=== PATIENT | male | born 1960 | race Caucasian/White ===

== ENCOUNTER → 2016-08-26 | Outpatient (REF) | payer OTHER ==
[~2016-08-26] MED LIST: ASPI1TAB PO; ATOR40TA PO; HYDR25TAB PO; IBUP80TA PO; INSULANT SC; LISI-538 PO; METF1000 PO; SILV-4 TOP; TRAD5TAB PO; UNAS3INJ3 IV; ZOSY1SOL6 IV
[2016-08-26 19:14] LABS: ALBUMIN 3.2 GM/DL (3.2-5.2); ALBUMIN/GLOBULIN RATIO 0.86 (1.00-1.93); BILIRUBIN,TOTAL 0.3 MG/DL (0.2-1.0); CALCIUM LEVEL 9.2 MG/DL (8.5-10.1); CREATININE FOR GFR 1.55 MG/DL (0.70-1.30); GLOMERULAR FILTRATION RATE 49.4 (>56); TOTAL PROTEIN 6.9 GM/DL (6.4-8.2)
== END ==
LOC: M SFHCCAPE 07:04
PROVIDERS: ATTEND Physician Assistant
DX: E11.8 Type 2 diabetes mellitus with unspecified complications (principal)

== ENCOUNTER → 2016-10-30 | Outpatient (REF) | payer MEDICARE ==
[2016-10-30 19:29] LABS: PERCENT SATURATION 15.7 % (19.7-37.4)
== END ==
LOC: M LAB REF 17:03
PROVIDERS: ATTEND Internal Medicine Nephrology
DX: D50.9 Iron deficiency anemia, unspecified (principal)

== ENCOUNTER → 2016-10-31 | Outpatient (RCR) | payer MEDICARE ==
[~2016-10-31] MED LIST changes: +AMLO10TA2 PO; +DOXY-278 PO; +FERR325T3 PO; +HYDR10TAB PO; +IRON65TA PO; +K-TA1TAB PO; +LISI40TAB PO; +POTA10TA34 PO; +POTA1TAB14 PO; +SITA50TAB PO; +TORS20TA2 PO; +TORS5TAB2 PO; +VITA50003 PO
== END ==
LOC: M PT 10-21 11:50
PROVIDERS: ATTEND Physician Assistant
DX: Z51.89 Encounter for other specified aftercare (principal); M79.89 Other specified soft tissue disorders; M14.60 Charcot's joint, unspecified site
CPT/HCPCS: 97140; 97162; G8978; G8979

== ENCOUNTER → 2016-11-03 | Outpatient (REF) | payer MEDICARE, OTHER ==
[2016-11-03 19:48] LABS: ALBUMIN 3.3 GM/DL (3.2-5.2); ALBUMIN/GLOBULIN RATIO 0.85 (1.00-1.93); BILIRUBIN,TOTAL 0.2 MG/DL (0.2-1.0); CALCIUM LEVEL 9.3 MG/DL (8.5-10.1); CREATININE FOR GFR 2.02 MG/DL (0.70-1.30); GLOMERULAR FILTRATION RATE 36.3 (>56); TOTAL PROTEIN 7.2 GM/DL (6.4-8.2)
[2016-11-03 19:56] LABS: POTASSIUM SERUM 5.2 MEQ/L (3.5-5.1)
== END ==
LOC: M SFHCCAPE 06:57
PROVIDERS: ATTEND Physician Assistant
DX: E11.8 Type 2 diabetes mellitus with unspecified complications (principal)

== ENCOUNTER 2016-11-06 09:57 | Observation (INO) | payer MEDICARE, OTHER ==
[~2016-11-06] VITALS: Ht 175.3 cm; Wt 138.9 kg
[~2016-11-06 09:57] MED LIST changes: -AMLO10TA2 PO; -DOXY-278 PO; -FERR325T3 PO; -HYDR10TAB PO; -IRON65TA PO; -K-TA1TAB PO; -LISI40TAB PO; -POTA10TA34 PO; -POTA1TAB14 PO; -SITA50TAB PO; -TORS20TA2 PO; -TORS5TAB2 PO; -VITA50003 PO
[2016-11-06] MEDS ORDERED: IRON65TA PO (11:02)
[2016-11-06] MEDS ORDERED: AMLO10TA2 PO (11:02)
[2016-11-06] MEDS ORDERED: POTA10TA34 PO (11:02)
[2016-11-06] MEDS ORDERED: LISI40TAB PO (11:02)
[2016-11-06] MEDS ORDERED: SITA50TAB PO (11:02)
[2016-11-06] MEDS ORDERED: TORS5TAB2 PO (11:02)
[2016-11-06] MEDS ORDERED: K-TA1TAB PO (11:02)
[2016-11-06] MEDS ORDERED: VITA50003 PO (11:02)
--- NOTE | 2016-11-06 11:06 | REP ---
Chest one-view HISTORY: Syncope Comparison: None The lungs are clear. The heart is normal in size. The pulmonary vasculature is normal in appearance. Impression: No acute disease. Signed by Sherif Teran MD 11/06/2016 10:58 A
[2016-11-06 11:08] LABS: CALCIUM LEVEL 9.4 MG/DL (8.5-10.1); CREATININE FOR GFR 2.3 MG/DL (0.70-1.30); GLOMERULAR FILTRATION RATE 31.2 (>56); MAGNESIUM LEVEL 1.9 MG/DL (1.8-2.4)
[2016-11-06 11:11] LABS: BASO # 0.1 K/mm3 (0.0-0.2); BASO % 0.6 % (0.0-1.0); EOS # 0.2 K/mm3 (0.0-0.50); EOS % 1.7 % (0.0-3.0); LARGE UNSTAINED CELL # 0.1 K/mm3 (0.0-0.4); LARGE UNSTAINED CELL % 0.6 % (0.0-4.0); LYMPH % 10.3 % (24.0-44.0); MEAN CORPUSCULAR HEMOGLOBIN 26.6 pg (27.0-33.0); MEAN CORPUSCULAR HGB CONC 31.3 g/dl (32.0-36.5); MEAN CORPUSCULAR VOLUME 84.9 fl (80.0-96.0); MONO # 0.5 K/mm3 (0.0-0.8); MONO % 5.4 % (0.0-5.0); NEUTROPHILS # 7.8 K/mm3 (1.8-7.7); NEUTROPHILS % 81.5 % (36.0-66.0); PLATELET COUNT, AUTOMATED 485 k/mm3 (150-450); RED CELL DISTRIBUTION WIDTH 14.2 % (11.5-14.5); WHITE BLOOD COUNT 9.6 K/mm3 (4.0-10.0)
[2016-11-06 11:12] LABS: POTASSIUM SERUM 5.8 MEQ/L (3.5-5.1)
[2016-11-06] MEDS ORDERED: FERR325T3 PO (12:23)
[2016-11-06] MEDS ORDERED: TORS20TA2 PO (12:23)
[2016-11-06] MEDS ORDERED: POTA1TAB14 PO (12:24)
[2016-11-06] MEDS ORDERED: ONDANSETRON 4MG/2ML VIAL (J2405) IV PRN (12:30)
[2016-11-06] MEDS ORDERED: ACETAMINOPHEN TAB 650MG DOSE (2X325MG) PO PRN (12:30)
[2016-11-06] MEDS ORDERED: SOD POLYSTYRENE SULFONATE SUSP 15 GM/60 ML UD PO ONE (13:00)
--- NOTE | 2016-11-06 13:34 | REP ---
CT of the left foot: Axial images are acquired in the reformatted sagittal coronal projections. There are no comparison studies of the left foot. There is pronounced fragmentation and dislocation of the tibiotalar joint and tarsal ossicles compatible with a combination of Charcot foot and osteomyelitis. Some of the residual bone fragments may represent sequestrum. There is diffuse soft tissue edema of the distal ankle and the entire foot, most pronounced in the hind foot. I suspect there is a focal fluid collection distal to the tip of the fibula. The technologist has placed a BB cutaneous marker just above the cutaneous site of a fistulous tract. This fistulous tract cannot be identified on CT and is identified only because of the cutaneous marker. This tract appears to be at the superior margin of the suspected fluid collection inferior to the fibular tip. Signed by Fermin Hillman MD 11/06/2016 01:25 P
[2016-11-06 14:06] LABS: METHADONE URINE NEGATIVE (NEGATIVE)
[2016-11-06] MEDS: LEVEMIR (INSULIN DETEMIR) 1 UNITS/0.01ML SC SCH ×2 (14:40→20:44)
[2016-11-06] MEDS: HEPARIN SOD (PORCINE) 5000 UNITS/ML VIAL SC SCH ×2 (14:41→21:49)
[2016-11-06] MEDS: TORSEMIDE 20 MG TAB PO SCH ×2 (14:53→20:44)
[2016-11-06] MEDS ORDERED: VANCOMYCIN HCL 750 MG, VIAL MATE ADAPTER 1 EACH in D5W 250 ML IV SCH (15:45)
[2016-11-06 15:55] VITALS: BP 178/73
--- NOTE | 2016-11-06 16:03 | HPEPDOC ---
Medical History and Physical Date of Admission Nov 06, 2016 at 12:23 History and Physical PRIMARY CARE PROVIDER: DR CHRISTIE ATTENDING: Cole Rutherford MD CHIEF COMPLAINT: Syncope HISTORY OF PRESENT ILLNESS: 56-year-old male past medical history of diabetes, hypertension, diabetic neuropathy, obesity, Charcot foot, proteinuria, hyperlipidemia, CKD stage III who presents with syncopal episode. Patient states he was at a center, drinking coffee after which she started to develop lightheadedness and dizziness while he was sitting down. Patient states he was not standing. States he had no chest pain or palpitations. He then started to develop diaphoresis and felt that his blood sugars may have been low so he drank orange juice and he ate a candy bar, with no relief. Patient denies any prior episodes. He did not have any syncopal episodes. No dyspnea on exertion/orthopnea baseline. Upon EMS arrival, patient was noted to have heart rate in the 30s, which was intermittent, and not recurrent. No prior episodes of bradycardia. No AV daja blocking agents. 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 Chews tobacco daily. No alcohol. FAMILY HISTORY: Mother with lung cancer, father with stomach cancer as well as coronary artery disease age 70 ALLERGIES: Please see below. REVIEW OF SYSTEMS: HEENT: Denies sore throat/headache CARDIOVASCULAR: Denies chest pain/palpitations RESPIRATORY: No shortness of breath/cough GASTROINTESTINAL: denies nausea/vomiting GENITOURINARY: Denies dysuria/urinary urgency. MUSCULOSKELETAL: Denies myalgias/arthralgias NEUROLOGICAL: Denies any focal weakness Rest of ROS negative. HOME MEDICATIONS: Please see below. PHYSICAL EXAMINATION: Vitals: (see below) General: No acute distress, laying comfortably in bed. HEENT: Moist mucous membranes. Neck: No JVD or lymphadenopathy Cardiac: RRR, No murmurs Pulm: Diminished breath sounds b/l bases. No wheezing, rhonchi Abd: NT/ND + BS Ext: 2+ BLE edema. Left foot inverted. distal pulses intact. Small wound on lateral side draining serosang fluid. LABORATORY DATA: See below. IMAGING: CT Foot 11/06/16 There is pronounced fragmentation and dislocation of the tibiotalar joint and tarsal ossicles compatible with a combination of Charcot foot and osteomyelitis. Some of the residual bone fragments may represent sequestrum. There is diffuse soft tissue edema of the distal ankle and the entire foot, most pronounced in the hind foot. I suspect there is a focal fluid collection distal to the tip of the fibula. The technologist has placed a BB cutaneous marker just above the cutaneous site of a fistulous tract. This fistulous tract cannot be identified on CT and is identified only because of the cutaneous marker. This tract appears to be at the superior margin of the suspected fluid collection inferior to the fibular tip. MICROBIOLOGY: Please see below. ASSESSMENT/PLAN: Syncope- may be secondary to bradycardia however patient's on any AV daja blocking agents. We'll continue to monitor in telemetry. Orthostatics. Echocardiogram pending. Cardiac enzymes 3. EKG with normal sinus rhythm, intraventricular conduction delay, repolarization abnormality, no acute ST changes. 2. Hyperkalemia- likely secondary to lisinopril as well as potassium supplementation. We'll discontinue potassium supplementation. Kayexalate. Decrease dose of lisinopril. 3. Charcot foot with osteomyelitis and fluid collection in the distal tip of the fibula- we'll start patient on vancomycin, wound culture, blood cultures. We 'll also consult Dr. Gil. 4. Diabetes mellitus- Levemir and sliding scale insulin. 5. Proteinuria- likely related to his diabetes. On lisinopril. 6. Acute kidney injury on chronic kidney disease - patient does appear to be final overloaded. We'll continue the patient's torsemide. If renal function continues to worsen, will consult nephrology. 7. Hyperlipidemia- on statin DVT prophylaxis- heparin subcutaneous Vital Signs Vital Signs Date Time Temp Pulse Resp B/P Pulse Ox O2 Delivery O2 Flow Rate FiO2 11/06/16 10:09 97.5 75 16 153/67 97 Room Air Laboratory Data Labs 24H Laboratory Tests 2 11/06/16 10:34: Anion Gap 6L, White Blood Count 9.6, Red Blood Count 3.74L, Hemoglobin 9.9L, Hematocrit 31.8L, Mean Corpuscular Volume 84.9, Mean Corpuscular Hemoglobin 26.6L, Mean Corpuscular Hemoglobin Concent 31.3L, Red Cell Distribution Width 14.2, Platelet Count 485H, Neutrophils (%) (Auto) 81.5H, Lymphocytes (%) (Auto) 10.3L, Monocytes (%) (Auto) 5.4H, Eosinophils (%) (Auto) 1.7, Basophils (%) ( Auto) 0.6, Neutrophils # (Auto) 7.8H, Lymphocytes # (Auto) 1.0L, Monocytes # ( Auto) 0.5, Eosinophils # (Auto) 0.2, Basophils # (Auto) 0.1, Blood Urea Nitrogen 52H, Creatinine 2.30H, Sodium Level 134L, Potassium Level 5.8H, Chloride Level 100, Carbon Dioxide Level 28, Calcium Level 9.4, Creatine Kinase MB 1.0, Creatine Kinase MB Relative Index 1.01, Glomerular Filtration Rate 31.2L , Large Unclassified Cells # 0.1, Large Unclassified Cells % 0.6, Magnesium Level 1.9, Thyroid Stimulating Hormone (TSH) 1.430, Total Creatine Kinase 99, Troponin I < 0.02, Urine Amphetamines Screen NEGATIVE, Urine Benzodiazepines Screen NEGATIVE, Urine Opiates Screen NEGATIVE, Urine Barbiturates Screen NEGATIVE, Urine Cannabinoids Screen NEGATIVE, Urine Cocaine Metabolite Screen NEGATIVE, Urine Methadone Screen NEGATIVE, Urine Phencyclidine Screen NEGATIVE 11/06/16 11:59: Bedside Glucose (Misc Panel) 255H 11/06/16 14:43: Bedside Glucose (Misc Panel) 235H CBC/BMP Laboratory Tests 11/06/16 10:34 Calcium Level 9.4, Red Blood Count 3.74 L, Mean Corpuscular Volume 84.9, Mean Corpuscular Hemoglobin 26.6 L, Mean Corpuscular Hemoglobin Concent 31.3 L, Red Cell Distribution Width 14.2, Neutrophils (%) (Auto) 81.5 H, Lymphocytes (%) ( Auto) 10.3 L, Monocytes (%) (Auto) 5.4 H, Eosinophils (%) (Auto) 1.7, Basophils (%) (Auto) 0.6, Neutrophils # (Auto) 7.8 H, Lymphocytes # (Auto) 1.0 L, Monocytes # (Auto) 0.5, Eosinophils # (Auto) 0.2, Basophils # (Auto) 0.1 Home Medications Scheduled Amlodipine Besylate (Amlodipine Besylate) 10 Mg Tab 10 MG PO QPM Aspirin (Aspirin 81) 81 Mg Tab 81 MG PO QPM Atorvastatin Calcium (Atorvastatin Calcium) 40 Mg Tab 40 MG PO QPM Ergocalciferol (Vitamin D) 50,000 Unit Cap 50,000 UNIT PO 1XWK ON THURSDAY Ferrous Sulfate (Ferrous Sulfate) 325 Mg Tab 325 MG PO QPM Insulin Glargine (Lantus) 1 Units/0.01 Ml Susp 50 UNITS SC BID Lisinopril (Lisinopril) 40 Mg Tab 40 MG PO QPM Potassium Chloride (Potassium Chloride ER) 20 Meq Tab 20 MEQ PO QPM Sitagliptin (Januvia) 50 Mg Tab 50 MG PO QPM Torsemide (Torsemide) 20 Mg Tab 40 MG PO BID Scheduled PRN Ibuprofen (Ibuprofen) 800 Mg Tab 800 MG PO Q8H PRN PRN PAIN Allergies Coded Allergies: No Known Allergies (Unverified , 02/18/16) COLE RUTHERFORD MD Nov 06, 2016 16:03
[2016-11-06] MEDS ORDERED: VANCOMYCIN HCL 1,000 MG, VIAL MATE ADAPTER 1 EACH in D5W 250 ML IV ONE (17:00)
--- NOTE | 2016-11-06 17:44 | CR ---
DATE OF CONSULTATION: 11/06/2016 REASON FOR CONSULTATION: Left ankle ulceration. Sherif Lujan is a patient well known to me who was admitted to the hospital this morning with complaint of syncope. He states he became lightheaded and dizzy this morning and had dizziness. He presented to the emergency room, noted to have a heart rate in the 30s. He was admitted for observation. PAST MEDICAL HISTORY: Significant for: Diabetes. Hypertension. Neuropathy. Charcot foot. Hyperlipidemia. Chronic kidney disease stage III. PAST SURGICAL HISTORY : Incision and drainage left foot. SOCIAL HISTORY: Negative for smoking and alcohol. FAMILY HISTORY; History of lung and stomach cancer to parents. ALLERGIES: None. REVIEW OF SYSTEMS: The patient denies recent fevers, nausea, vomiting. VITAL SIGNS: On examination, temperature is 97.8, pulse presently 74, respiratory rate 18, blood pressure 178/73, pulse oximetry is 96% on room air. LABORATORY ON ADMISSION: White blood cell count is 9.6. LOWER EXTREMITY EXAMINATION: There is a small right heel wound. This has been improving from incision and drainage performed last year. The left lower leg is examined. There is complete dislocation at the ankle joint with varus positioning of the foot relative to the ankle. There is ulceration to the left lateral ankle. There is no extending erythema. No purulence noted. No malodor. No necrosis. The ankle does not probe. There is no sensation to the lower extremities. CT scan is observed. There is total dislocation at the ankle joint with erosion of the talus, there is erosion noted to the midfoot as well, all consistent with Charcot. ASSESSMENT: A 56-year-old male with diabetes and Charcot foot, left, with ulceration. This ulceration has been present when he was placed in a Charcot Restraint Orthotic Walker (SYCUAN) last week. Since 1 week ago, the ulceration has improved in size. The patient is scheduled for a below-knee amputation due to the unstable Charcot foot. I do not believe there is osteomyelitis present in the foot. I do not believe antibiotics are required presently. The patient is to remain strict non-weightbearing to the left lower extremity to prevent worsening of the wound. Continue syncopal workup per primary team. The patient is scheduled for definitive below-knee amputation by his orthopedic doctor in [place]. He will continue to followup with me for the right heel wound.
[2016-11-06] MEDS ORDERED: VANCOMYCIN HCL 1,000 MG, VIAL MATE ADAPTER 1 EACH in D5W 250 ML IV SCH (18:00)
[2016-11-06 18:34] LABS: ANION GAP 6 MEQ/L (8-16); BLOOD UREA NITROGEN 54 MG/DL (7-18); CALCIUM LEVEL 9.2 MG/DL (8.5-10.1); CARBON DIOXIDE LEVEL 27 MEQ/L (21-32); CHLORIDE LEVEL 101 MEQ/L (98-107); CREATININE FOR GFR 2.34 MG/DL (0.70-1.30); GLOMERULAR FILTRATION RATE 30.6 (>56); GLUCOSE, FASTING 163 MG/DL (70-105); SODIUM LEVEL 134 MEQ/L (136-145)
--- NOTE | 2016-11-06 19:07 | ECGEPIP ---
Stationary ECG Study 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
[2016-11-06] MEDS: LISINOPRIL 20 MG TAB PO SCH (20:44)
[2016-11-06] MEDS: FERROUS SULFATE 325MG TAB PO SCH (20:44)
[2016-11-06] MEDS: ATORVASTATIN 20 MG TAB PO SCH (20:44)
[2016-11-06] MEDS: ASPIRIN 81 MG ENTERIC TAB PO SCH (20:45)
[2016-11-06] MEDS: amLODIPine 10 MG TAB PO SCH (20:45)
[2016-11-06 21:11] VITALS: BP 125/62
[2016-11-06] MEDS: **hydrALAZINE** 10 MG TAB PO SCH (21:49)
[2016-11-07] VITALS (7 sets, daily range): BP systolic 117–163; BP diastolic 59–78
[2016-11-07] MEDS ORDERED: SLF 3 ML SYR IV PRN (01:00)
[2016-11-07] MEDS: **hydrALAZINE** 10 MG TAB PO SCH ×3 (05:01→22:07)
[2016-11-07] MEDS: SLF 3 ML SYR IV SCH ×3 (05:14→22:10)
[2016-11-07] MEDS: HEPARIN SOD (PORCINE) 5000 UNITS/ML VIAL SC SCH ×3 (05:15→22:09)
[2016-11-07] MEDS: LEVEMIR (INSULIN DETEMIR) 1 UNITS/0.01ML SC SCH ×2 (08:41→21:00)
[2016-11-07] MEDS: TORSEMIDE 20 MG TAB PO SCH ×2 (08:43→22:07)
[2016-11-07 08:47] LABS: ANION GAP 9 MEQ/L (8-16); BLOOD UREA NITROGEN 52 MG/DL (7-18); CALCIUM LEVEL 8.7 MG/DL (8.5-10.1); CARBON DIOXIDE LEVEL 26 MEQ/L (21-32); CHLORIDE LEVEL 101 MEQ/L (98-107); CREATININE FOR GFR 2.33 MG/DL (0.70-1.30); GLOMERULAR FILTRATION RATE 30.8 (>56); GLUCOSE, FASTING 98 MG/DL (70-105); MAGNESIUM LEVEL 1.9 MG/DL (1.8-2.4); POTASSIUM SERUM 4.8 MEQ/L (3.5-5.1); SODIUM LEVEL 136 MEQ/L (136-145)
[2016-11-07 08:50] LABS: MEAN CORPUSCULAR HEMOGLOBIN 27.5 pg (27.0-33.0); MEAN CORPUSCULAR HGB CONC 32.4 g/dl (32.0-36.5); RED CELL DISTRIBUTION WIDTH 14.5 % (11.5-14.5)
[2016-11-07] MEDS ORDERED: GLUCAGON FOR INJ 1 MG VIAL (J1610) SC PRN (09:30)
[2016-11-07] MEDS ORDERED: DEXTROSE 50% 50 ML SYRINGE IV PRN (09:30)
[2016-11-07] MEDS ORDERED: GLUCOSE 4 GM CHEW TABLET PO PRN (09:30)
[2016-11-07] MEDS: DOXYCYCLINE HYCLATE 100 MG in D5W MINI-BAG PLUS 100 ML IV SCH ×2 (09:51→22:09)
--- NOTE | 2016-11-07 09:59 | REP ---
Renal and bladder ultrasound for worsening renal function: There are no comparison studies. The kidneys are normal size. The right kidney measures 12.9 x 5.7 x 6.2 cm. Left kidney measures 12.1 x 6.0 x 6.7 cm. Renal cortical echogenicity is normal bilaterally. There is no calculus, mass, cyst or hydronephrosis on the right or the left. Bladder: Balloon the bladder is incompletely distended, therefore the study is insensitive for evaluation of the bladder wall. Identification of ureteral jets with color Doppler ultrasound is not performed. However, there is no hydronephrosis. Impression: Essentially negative renal ultrasound. The bladder is incompletely distended and cannot be evaluated. Signed by Fermin Hillman MD 11/07/2016 09:50 A
[2016-11-07] MEDS: HumaLOG INSULIN (NovoLOG) PER UNIT SC SCH ×2 (11:49→16:34)
--- NOTE | 2016-11-07 12:01 | IPNPDOC ---
Text Note Date of Service The patient was seen on 11/07/16. NOTE Subjective: Pt feels well. Denies CP/SOB/palpitations. Objective: PHYSICAL EXAMINATION: Vitals: (see below) General: No acute distress, laying comfortably in bed. HEENT: Moist mucous membranes. Neck: No JVD or lymphadenopathy Cardiac: RRR, No murmurs Pulm: Diminished breath sounds b/l bases. No wheezing, rhonchi Abd: NT/ND + BS Ext: 2+ BLE edema. Left foot inverted. distal pulses intact. Small wound on lateral side draining serosang fluid. LABORATORY DATA: See below. IMAGING: CT Foot 11/06/16 There is pronounced fragmentation and dislocation of the tibiotalar joint and tarsal ossicles compatible with a combination of Charcot foot and osteomyelitis. Some of the residual bone fragments may represent sequestrum. There is diffuse soft tissue edema of the distal ankle and the entire foot, most pronounced in the hind foot. I suspect there is a focal fluid collection distal to the tip of the fibula. The technologist has placed a BB cutaneous marker just above the cutaneous site of a fistulous tract. This fistulous tract cannot be identified on CT and is identified only because of the cutaneous marker. This tract appears to be at the superior margin of the suspected fluid collection inferior to the fibular tip. MICROBIOLOGY: Please see below. ASSESSMENT/PLAN: 1. Syncope- may be secondary to bradycardia however patient's on any AV daja blocking agents. We'll continue to monitor in telemetry. Orthostatics. Echocardiogram pending. Cardiac enzymes 3. EKG with normal sinus rhythm, intraventricular conduction delay, repolarization abnormality, no acute ST changes. 2. Hyperkalemia- likely secondary to lisinopril as well as potassium supplementation. We'll discontinue potassium supplementation. Kayexalate. Decrease dose of lisinopril. 3. Charcot foot with osteomyelitis and fluid collection in the distal tip of the fibula- we'll start patient on vancomycin, wound culture, blood cultures. Seen by Dr. Gil. Spoke with Robyn from ortho group in [place] - pt is planned for Left BKA on 11/21/16. 4. Diabetes mellitus- Levemir and sliding scale insulin. 5. Proteinuria- likely related to his diabetes. On lisinopril. 6. Acute kidney injury on chronic kidney disease - patient does appear to be final overloaded. We'll continue the patient's torsemide. If renal function continues to worsen, will consult nephrology. 7. Hyperlipidemia- on statin DVT prophylaxis- heparin subcutaneous Plan to d/c in the next 24 hr if tele negative. VS,Fishbone, I+O VS, Fishbone, I+O Laboratory Tests 11/06/16 17:48 Calcium Level 9.2, Total Creatine Kinase 116 11/07/16 05:19 Red Blood Count 3.14 L, Mean Corpuscular Volume 85.0, Mean Corpuscular Hemoglobin 27.5, Mean Corpuscular Hemoglobin Concent 32.4, Red Cell Distribution Width 14.5 11/07/16 05:21 Calcium Level 8.7, Total Creatine Kinase 89 Vital Signs Date Time Temp Pulse Resp B/P Pulse Ox O2 Delivery O2 Flow Rate FiO2 11/07/16 07:20 98.4 68 18 139/69 94 Room Air I&O- Last 24 Hours up to 6 AM 11/07/16 06:00 Intake Total 850 ml Output Total 1200 ml Balance -350 ml COLE WAHL MD Nov 07, 2016 12:01
--- NOTE | 2016-11-07 20:00 | ECHO ---
DATE OF PROCEDURE: 11/07/2016 AGE: 56 GENDER: Male HEIGHT: 69 inches WEIGHT: 310 pounds BODY SURFACE AREA: 2.49 m2 PATIENT LOCATION: U, room 3225 REFERRING PHYSICIAN: Boris Rutherford MD INDICATION: Syncope. 2-D MEASUREMENTS: RV: 3.5 cm LV: 4.8 cm Septum: 1.2 cm Posterior wall: 1.2 cm Aortic root: 3.3 cm LA: 4.1 cm LVEF: 65% DOPPLER MEASUREMENTS: AV: 1.95 m/s LVOT: 1.45 m/s LVOT diameter: 1.9 cm Mean AV gradient: 9 mmHg MV-E: 86, A: 105, EA ratio: 0.8 Early mitral deceleration time: 211 ms E prime: 5.9, A prime 11, EE prime ratio: 14.6 PV: 1.1 m/s Pulmonary artery acceleration time: 148 ms RVSP: 26 mmHg IVC: 2.0 cm COMMENT: Normal sinus rhythm without intraventricular conduction disturbance. Technically challenging study in light of the patient's body habitus, but diagnostically useful information was still obtained. Mildly dilated left atrium, but normal left ventricular size. Right heart chamber sizes were also normal. LV wall thickness was upper limits of normal to mildly hypertrophied. On real time imaging from the parasternal and apical projections wall motion was symmetrical and normal to slightly hyperkinetic. Mildly thickened mitral annulus with normal leaflet thickness and excursion with no posterior systolic buckling. Three equal size aortic cusps? With moderate cusp thickening, but adequate cusp separation. Normal aortic root size. No apparent intracardiac mass or pericardial effusion. Color flow Doppler study taken from the parasternal and apical projection showed very mild tricuspid but no aortic or mitral insufficiency. Guided continuous wave Doppler of his aortic valve showed a peak systolic velocity upper limits of normal with borderline mean systolic gradient suggestive of no more than marginal calcific aortic stenosis. Pulsed and continuous wave Doppler of his LV inflow tract taken from the apical four-chamber projection showed normal diastolic filling velocities against mitral stenosis. There was more prominent late diastolic/atrial dependent filling pattern. Diastolic dysfunction was further confirmed by a prolonged early mitral deceleration time and tissue Doppler of his mitral annulus. His estimated mean left atrial pressure was mildly increased at 14-16 mmHg. Pulsed and continuous wave Doppler of his pulmonary trunk showed a normal peak systolic velocity against RV outflow tract obstruction. Pulmonary artery acceleration time was normal against an elevated pulmonary vascular resistance. Guided continuous wave Doppler of his tricuspid valve allowed our estimation of his right ventricular systolic pressure (upper limits of normal). His inferior vena cava was upper limits of normal with normal respiratory collapse against an elevated central venous pressure. CONCLUSIONS: Unable to clearly identify the reason for his syncopal spell. Borderline left ventricle hypertrophy with preserved systolic function. Mildly dilated left atrium with Doppler evidence of an impairment of LV diastolic function and mildly elevated mean left atrial pressure. Normal right heart chamber sizes and estimated pulmonary atrial pressure. Normal IVC size and collapse against an elevated central venous pressure. Marginal calcific aortic stenosis without insufficiency. Slight mitral annular thickening without functional valvular abnormality.
[2016-11-07] MEDS ORDERED: HumaLOG INSULIN (NovoLOG) PER UNIT SC SCH (21:00)
[2016-11-07] MEDS: ATORVASTATIN 20 MG TAB PO SCH (22:06)
[2016-11-07] MEDS: ASPIRIN 81 MG ENTERIC TAB PO SCH (22:07)
[2016-11-07] MEDS: amLODIPine 10 MG TAB PO SCH (22:08)
[2016-11-07] MEDS: FERROUS SULFATE 325MG TAB PO SCH (22:08)
[2016-11-07] MEDS: LISINOPRIL 20 MG TAB PO SCH (22:08)
[2016-11-08 04:00] VITALS: BP 115/66
[2016-11-08 05:23] LABS: CALCIUM LEVEL 8.9 MG/DL (8.5-10.1); CREATININE FOR GFR 2.18 MG/DL (0.70-1.30); GLOMERULAR FILTRATION RATE 33.2 (>56); MAGNESIUM LEVEL 1.9 MG/DL (1.8-2.4); POTASSIUM SERUM 4.4 MEQ/L (3.5-5.1)
[2016-11-08 05:29] VITALS: BP 128/68
[2016-11-08] MEDS: HEPARIN SOD (PORCINE) 5000 UNITS/ML VIAL SC SCH (05:29)
[2016-11-08] MEDS: **hydrALAZINE** 10 MG TAB PO SCH (05:29)
[2016-11-08] MEDS: SLF 3 ML SYR IV SCH (05:30)
[2016-11-08 06:13] LABS: MEAN CORPUSCULAR HEMOGLOBIN 27.1 pg (27.0-33.0); MEAN CORPUSCULAR HGB CONC 31.5 g/dl (32.0-36.5); RED CELL DISTRIBUTION WIDTH 14.4 % (11.5-14.5)
[2016-11-08 08:00] VITALS: BP 130/64
[2016-11-08] MEDS: LEVEMIR (INSULIN DETEMIR) 1 UNITS/0.01ML SC SCH (09:06)
[2016-11-08] MEDS: HumaLOG INSULIN (NovoLOG) PER UNIT SC SCH (09:06)
[2016-11-08] MEDS: TORSEMIDE 20 MG TAB PO SCH (09:07)
[2016-11-08] MEDS: DOXYCYCLINE HYCLATE 100 MG in D5W MINI-BAG PLUS 100 ML IV SCH (09:07)
[2016-11-08] MEDS ORDERED: HYDR10TAB PO (10:58)
[2016-11-08] MEDS ORDERED: LISI-538 PO (10:58)
[2016-11-08] MEDS ORDERED: DOXY-278 PO (10:58)
--- NOTE | 2016-11-08 13:42 | DS.PDOC ---
Discharge Summary General Date of Admission Nov 06, 2016 at 12:23 Date of Discharge Nov 08, 2016 at 12:31 Attending Physician: COLE WAHL MD Discharge Summary PROCEDURES PERFORMED DURING STAY: None. ADMITTING/DISCHARGE DIAGNOSES: 1. Near-syncope 2. Sinus bradycardia 3. Hyperkalemia 4. Charcot foot, scheduled for BKA on 11/21 5. Diabetes mellitus 6. Proteinuria 7. Acute kidney injury on chronic kidney disease 8. Hyperlipidemia COMPLICATIONS/CHIEF COMPLAINT: Bradycardia; Near Syncope. HISTORY OF PRESENT ILLNESS/HOSPITAL COURSE: . Is a 48-year-old male past medical history of diabetes, hypertension, Charcot foot who presents with a near syncopal episode. Patient states that he was drinking coffee when he started to develop lightheadedness, dizziness, and diaphoresis. Patient states he drank orange juice and ate a candy bar, afterwards he checked his blood sugar which was normal, although he still was having the symptoms. Patient denies any prior episodes. The patient was noted to have a heart rate in the 30s by EMS which was intermittent and resolved on its own. Patient did not have any prior nor additional episodes of bradycardia and patient is not on any AV blockade agents. Patient was observed in telemetry, with no recurrent episodes of bradycardia or syncope. Patient's echocardiogram is relatively unremarkable. Cardiac enzymes were negative. Of note patient does have a Charcot foot and did have this imaged with a questionable ostium myelitis and possible fluid collection. Dr. Gil evaluated the patient and does not believe that the patient has osteomyelitis. Patient did spike a fever 100.9 during this hospitalization and given these findings patient was given a short course of doxycycline. Patient is also scheduled for a BKA on 11/21/16 with orthopedics. Patient is hemodynamically stable and ready to be discharged home. Patient states he wants his primary care physician to refer him to Dr. Garibay. DISCHARGE MEDICATIONS: Please see below. ALLERGIES: Please see below. PHYSICAL EXAMINATION ON DISCHARGE: Vitals: (see below) General: No acute distress, laying comfortably in bed. HEENT: Moist mucous membranes. Neck: No JVD or lymphadenopathy Cardiac: RRR, No murmurs Pulm: Diminished breath sounds b/l bases. No wheezing, rhonchi Abd: NT/ND + BS Ext: 2+ BLE edema. Left foot inverted. distal pulses intact. Small wound on lateral side draining serosang fluid. LABORATORY DATA: Please see below. IMAGING: CT Foot 11/06/16 There is pronounced fragmentation and dislocation of the tibiotalar joint and tarsal ossicles compatible with a combination of Charcot foot and osteomyelitis. Some of the residual bone fragments may represent sequestrum. There is diffuse soft tissue edema of the distal ankle and the entire foot, most pronounced in the hind foot. I suspect there is a focal fluid collection distal to the tip of the fibula. The technologist has placed a BB cutaneous marker just above the cutaneous site of a fistulous tract. This fistulous tract cannot be identified on CT and is identified only because of the cutaneous marker. This tract appears to be at the superior margin of the suspected fluid collection inferior to the fibular tip. PROGNOSIS: Fair ACTIVITY: As tolerated. DIET: Carb consistent DISCHARGE PLAN: Discharge home with family DISPOSITION: 01 Home, Self-Care. DISCHARGE INSTRUCTIONS: 1. Follow-up with PCP in 1-2 weeks. PCP will refer you to Dr. Garibay. Also follow up with orthopedics for BKA on 11/21. Also follow-up with Dr. Han as scheduled. Return to the ED if symptoms recur. DISCHARGE CONDITION: Stable. TIME SPENT ON DISCHARGE: Greater than 30 minutes. Vital Signs/I&Os Vital Signs Date Time Temp Pulse Resp B/P Pulse Ox O2 Delivery O2 Flow Rate FiO2 11/08/16 08:00 98.5 72 18 130/64 96 Room Air I&O- Last 24 Hours up to 6 AM 11/08/16 06:00 Intake Total 1560 ml Output Total 650 ml Balance 910 ml Laboratory Data Labs 24H Laboratory Tests 2 11/07/16 16:29: Bedside Glucose (Misc Panel) 181H 11/07/16 20:15: Bedside Glucose (Misc Panel) 171H 11/08/16 04:54: Anion Gap 8, Blood Urea Nitrogen 56H, Creatinine 2.18H, Sodium Level 138, Potassium Level 4.4, Chloride Level 102, Carbon Dioxide Level 28, Calcium Level 8.9, Glomerular Filtration Rate 33.2L, Magnesium Level 1.9 CBC/BMP Laboratory Tests 11/08/16 04:54 Calcium Level 8.9, Red Blood Count 3.35 L, Mean Corpuscular Volume 86.0, Mean Corpuscular Hemoglobin 27.1, Mean Corpuscular Hemoglobin Concent 31.5 L, Red Cell Distribution Width 14.4 FSBS Laboratory Tests Test 11/07/16 16:29 11/07/16 20:15 Range/Units Bedside Glucose (Misc Panel) 181 171 70-105 MG/DL Microbiology Microbiology 11/06/16 Blood Culture - Preliminary, Resulted No growth after 24 hours . All specim... 11/06/16 Blood Culture - Preliminary, Resulted No growth after 24 hours . All specim... Discharge Medications Scheduled Amlodipine Besylate (Amlodipine Besylate) 10 Mg Tab 10 MG PO QPM (Reported) Aspirin (Aspirin 81) 81 Mg Tab 81 MG PO QPM (Reported) Atorvastatin Calcium (Atorvastatin Calcium) 40 Mg Tab 40 MG PO QPM (Reported) Doxycycline Hyclate (Doxycycline) 100 Mg Cap 100 MG PO Q12H Ergocalciferol (Vitamin D) 50,000 Unit Cap 50,000 UNIT PO 1XWK (Reported) ON THURSDAY Ferrous Sulfate (Ferrous Sulfate) 325 Mg Tab 325 MG PO QPM (Reported) Hydralazine HCl (Hydralazine HCl) 10 Mg Tab 10 MG PO BID Insulin Glargine (Lantus) 1 Units/0.01 Ml Susp 50 UNITS SC BID (Reported) Lisinopril (Lisinopril) 20 Mg Tab 20 MG PO QPM Sitagliptin (Januvia) 50 Mg Tab 50 MG PO QPM (Reported) Torsemide (Torsemide) 20 Mg Tab 40 MG PO BID (Reported) Allergies Coded Allergies: No Known Allergies (Unverified , 02/18/16) COLE WAHL MD Nov 08, 2016 13:42
== END 2016-11-08 12:31 | disposition home or self-care (01) ==
LOC: M ED 10:41 → M ED INP 12:23 → M PCU 15:23
PROVIDERS: ADMIT Internal Medicine; ATTEND Internal Medicine
DX: R55 Syncope and collapse (principal); R00.1 Bradycardia, unspecified; E87.5 Hyperkalemia; E11.40 Type 2 diabetes mellitus with diabetic neuropathy, unspecified; M14.672 Charcot's joint, left ankle and foot; R80.9 Proteinuria, unspecified; N17.9 Acute kidney failure, unspecified; N18.3 Chronic kidney disease, stage 3 (moderate); Z79.82 Long term (current) use of aspirin; Z79.899 Other long term (current) drug therapy; I10 Essential (primary) hypertension; E66.9 Obesity, unspecified; E78.5 Hyperlipidemia, unspecified; F17.220 Nicotine dependence, chewing tobacco, uncomplicated
CPT/HCPCS: 36415; 71010; 73700; 76775; 80048; 80306; 81001; 82550; 82553; 82570; 83735; 84300; 84443; 85025; 85027; 87040; 93005; 93041; 94760; 96372; 96375; 96376; 99285; J3370

== ENCOUNTER → 2016-11-10 | Outpatient (REF) | payer MEDICARE ==
[~2016-11-10] MED LIST changes: +AMLO10TA2 PO; +DOXY-278 PO; +FERR325T3 PO; +HYDR10TAB PO; +IRON65TA PO; +K-TA1TAB PO; +LISI40TAB PO; +POTA10TA34 PO; +POTA1TAB14 PO; +SITA50TAB PO; +TORS20TA2 PO; +TORS5TAB2 PO; +VITA50003 PO
[2016-11-10 19:07] LABS: MEAN CORPUSCULAR HEMOGLOBIN 27.5 pg (27.0-33.0); MEAN CORPUSCULAR HGB CONC 31.9 g/dl (32.0-36.5); MEAN CORPUSCULAR VOLUME 86.1 fl (80.0-96.0); RED CELL DISTRIBUTION WIDTH 14.1 % (11.5-14.5); WHITE BLOOD COUNT 9.4 K/mm3 (4.0-10.0)
== END ==
LOC: M SFHCCLAY 11:26
PROVIDERS: ATTEND Family Medicine
DX: Z01.818 Encounter for other preprocedural examination (principal); E11.610 Type 2 diabetes mellitus with diabetic neuropathic arthropathy; R55 Syncope and collapse; Z79.82 Long term (current) use of aspirin; Z79.899 Other long term (current) drug therapy
CPT/HCPCS: 85027; 85610; G0463

== ENCOUNTER 2016-11-11 08:23 | Outpatient (RCR) | payer MEDICARE | END 2016-11-30 | LOC: M PT 08:23 | PROVIDERS: ATTEND Physician Assistant | DX: Z51.89 Encounter for other specified aftercare (principal); M14.60 Charcot's joint, unspecified site; M79.89 Other specified soft tissue disorders | CPT/HCPCS: 97140; G8978; G8979; G8980 ==

== ENCOUNTER 2016-12-11 18:33 | Emergency (ER) | payer MEDICARE ==
[~2016-12-11] VITALS: Ht 175.3 cm; Wt 127.0 kg
[2016-12-11 22:50] VITALS: BP 153/69
--- NOTE | 2016-12-12 09:12 | REP ---
LEFT KNEE, TWO VIEWS: Patient has had below knee amputation. There is no acute fracture or dislocation. There is diffuse joint space narrowing, subchondral sclerosis, and spurring. IMPRESSION: No evidence of acute fracture or dislocation. Signed by Fermin Pappas MD 12/12/2016 07:56 P
== END 2016-12-11 22:54 | disposition short-term general hospital (02) ==
LOC: M ED 19:25
DX: S81.802A Unspecified open wound, left lower leg, initial encounter (principal); W19.XXXA Unspecified fall, initial encounter; Y92.099 Unspecified place in other non-institutional residence as the place of occurrence of the external cause; Y93.9 Activity, unspecified; Y99.9 Unspecified external cause status; I25.10 Atherosclerotic heart disease of native coronary artery without angina pectoris; I10 Essential (primary) hypertension; I50.9 Heart failure, unspecified; E11.9 Type 2 diabetes mellitus without complications; Z79.82 Long term (current) use of aspirin; Z79.4 Long term (current) use of insulin; Z79.84 Long term (current) use of oral hypoglycemic drugs; Z79.899 Other long term (current) drug therapy

== ENCOUNTER → 2017-02-27 | Outpatient (REF) | payer MEDICARE ==
[~2017-02-27] MED LIST changes: -ATOR40TA PO; +ATOR40TA75 PO; +BAYE325T12 PO; +LOPR1TAB6 PO; -METF1000 PO; +METF10004 PO; +METO1TAB7 PO; +POLY150C4 PO; -POTA10TA34 PO; +POTA10TA67 PO; +VITA1CAP40 PO; -VITA50003 PO
[2017-02-27 18:18] LABS: COMPLEMENT C3 170 MG/DL (90-180); COMPLEMENT C4 31.8 MG/DL (10-40)
[2017-02-27 19:27] LABS: RBC, URINE 0-1 /hpf (0-3); SQUAMOUS EPITHELIAL CELL URINE SMALL AMOUNT /hpf (SMALL AMT)
[2017-02-27 19:29] LABS: BACTERIA, URINE NONE SEEN; HYALINE CAST, URINE TNTC /lpf (0-1)
[2017-02-27 19:30] LABS: MICROSCOPIC EXAM PERFORMED
[2017-03-02 10:24] LABS: HEPATITIS B SURFACE ANTIBODY NEGATIVE (POSITIVE)
[2017-03-02 10:52] LABS: ALBUMIN % 45.8 % (55.8-66.1)
[2017-03-02 10:53] LABS: ALBUMIN 3.66 GM/DL (3.29-5.55); GAMMA GLOBULIN % 12.3 % (11.1-18.8)
[2017-03-03 00:07] LABS: COMPLEMENT TOTAL (CH50) > 65 U/mL (42-60)
== END ==
LOC: M LAB REF 17:11
PROVIDERS: ATTEND Internal Medicine Nephrology
DX: R80.9 Proteinuria, unspecified (principal)

== ENCOUNTER → 2017-03-04 | Outpatient (CLI) | payer MEDICARE ==
--- NOTE | 2017-03-04 17:49 | REP ---
HISTORY: Kidney disease. COMPARISON: 11/07/2016 Today's examination shows the right kidney to measure 15.1 x 6.2 x 5.6 cm and the left kidney measured 12.9 x 6.5 x 7.3 cm. The renal cortical echoes are within normal limits and there is preservation of cortical medullary differentiation. No cystic or solid masses are noted. IMPRESSION: Renal ultrasonography is within normal limits. Signed by Minh Albarado DO 03/05/2017 10:41 A
== END ==
LOC: M RAD 13:01
PROVIDERS: ATTEND Internal Medicine Nephrology
DX: R80.9 Proteinuria, unspecified (principal); N18.3 Chronic kidney disease, stage 3 (moderate); I12.9 Hypertensive chronic kidney disease with stage 1 through stage 4 chronic kidney disease, or unspecified chronic kidney disease

== ENCOUNTER → 2017-03-12 | Outpatient (REF) | payer MEDICARE ==
[2017-03-12 17:20] LABS: ALBUMIN 3.4 GM/DL (3.2-5.2); ALBUMIN/GLOBULIN RATIO 0.89 (1.00-1.93); BILIRUBIN,TOTAL 0.3 MG/DL (0.2-1.0); CALCIUM LEVEL 8.8 MG/DL (8.5-10.1); CREATININE FOR GFR 1.61 MG/DL (0.70-1.30); GLOMERULAR FILTRATION RATE 47.2 (>56); POTASSIUM SERUM 4.9 MEQ/L (3.5-5.1); TOTAL PROTEIN 7.2 GM/DL (6.4-8.2)
== END ==
LOC: M SFHCCAPE 07:02
PROVIDERS: ATTEND Physician Assistant
DX: E11.51 Type 2 diabetes mellitus with diabetic peripheral angiopathy without gangrene (principal)

== ENCOUNTER 2017-03-16 06:04 | Outpatient (CLI) | payer MEDICARE ==
[~2017-03-16] VITALS: Ht 175.3 cm; Wt 140.0 kg
[~2017-03-16 06:04] MED LIST changes: -BAYE325T12 PO; -LOPR1TAB6 PO; -METO1TAB7 PO; -POLY150C4 PO
[2017-03-16] MEDS ORDERED: IRON SUCROSE 25 MG in NS 50 ML IV ONE (06:30)
[2017-03-16] MEDS ORDERED: IRON SUCROSE 475 MG in NS 250 ML IV ONE (07:30)
[2017-05-30] MEDS ORDERED: LISI-538 PO (10:59)
[2017-05-30] MEDS ORDERED: LOPR1TAB6 PO (10:59)
[2017-05-30] MEDS ORDERED: METO1TAB7 PO (12:04)
[2017-05-30] MEDS ORDERED: BAYE325T12 PO (12:06)
[2017-05-30] MEDS ORDERED: POLY150C4 PO (12:07)
[2017-05-30] MEDS ORDERED: HYDR25TAB PO (12:07)
[2017-06-01] MEDS ORDERED: AMLO10TA2 PO (16:18)
== END 2017-03-16 11:25 | disposition home or self-care (01) ==
LOC: M INFU 06:04
PROVIDERS: ATTEND Internal Medicine Nephrology
DX: D50.9 Iron deficiency anemia, unspecified (principal); Z89.519 Acquired absence of unspecified leg below knee; Z79.899 Other long term (current) drug therapy; Z79.82 Long term (current) use of aspirin; Z79.4 Long term (current) use of insulin; Z79.84 Long term (current) use of oral hypoglycemic drugs
CPT/HCPCS: 96365; 96366; J1756

== ENCOUNTER → 2017-06-16 | Outpatient (REF) | payer MEDICARE ==
[~2017-06-16] MED LIST changes: +BAYE325T12 PO; +LOPR1TAB6 PO; +METO1TAB7 PO; +POLY150C4 PO
[2017-06-16 17:05] LABS: ALBUMIN 3.3 GM/DL (3.2-5.2); ALBUMIN/GLOBULIN RATIO 0.94 (1.00-1.93); BILIRUBIN,TOTAL 0.2 MG/DL (0.2-1.0); CREATININE FOR GFR 1.74 MG/DL (0.70-1.30); GLOMERULAR FILTRATION RATE 43.1 (>56); TOTAL PROTEIN 6.8 GM/DL (6.4-8.2)
[2017-06-16 17:24] LABS: POTASSIUM SERUM 5.3 MEQ/L (3.5-5.1)
[2017-06-16 17:35] LABS: BASO % 0.4 % (0.0-1.0); EOS # 0.2 10^3/uL (0.0-0.50); EOS % 3.5 % (0.0-3.0); IMMATURE GRANULOCYTE % 0.4 % (0-0); LYMPH # 1.6 10^3/uL (1.5-4.5); LYMPH % 23.2 % (24.0-44.0); MEAN CORPUSCULAR HEMOGLOBIN 27.8 pg (27.0-33.0); MEAN CORPUSCULAR HGB CONC 30.9 g/dl (32.0-36.5); MEAN CORPUSCULAR VOLUME 90.1 fl (80.0-96.0); MONO # 0.7 10^3/uL (0.0-0.8); MONO % 9.7 % (0.0-5.0); NEUTROPHILS # 4.3 10^3/uL (1.8-7.7); NEUTROPHILS % 62.8 % (36.0-66.0); PLATELET COUNT, AUTOMATED 330 10^3/uL (150-450); RED CELL DISTRIBUTION WIDTH 13.8 % (11.5-14.5); WHITE BLOOD COUNT 6.8 10^3/uL (4.0-10.0)
== END ==
LOC: M SFHCCAPE 07:01
PROVIDERS: ATTEND Physician Assistant
DX: I10 Essential (primary) hypertension (principal); E11.9 Type 2 diabetes mellitus without complications

== ENCOUNTER → 2017-07-02 | Outpatient (REF) | payer MEDICARE ==
[2017-07-02 16:31] LABS: BASO # 0.1 10^3/uL (0.0-0.2); BASO % 0.7 % (0.0-1.0); EOS # 0.2 10^3/uL (0.0-0.50); EOS % 2.7 % (0.0-3.0); IMMATURE GRANULOCYTE % 0.5 % (0-0); LYMPH # 1.4 10^3/uL (1.5-4.5); LYMPH % 18.2 % (24.0-44.0); MEAN CORPUSCULAR HEMOGLOBIN 27.8 pg (27.0-33.0); MEAN CORPUSCULAR VOLUME 87.1 fl (80.0-96.0); MONO # 0.7 10^3/uL (0.0-0.8); MONO % 9.7 % (0.0-5.0); NEUTROPHILS # 5.1 10^3/uL (1.8-7.7); NEUTROPHILS % 68.2 % (36.0-66.0); PLATELET COUNT, AUTOMATED 325 10^3/uL (150-450); RED CELL DISTRIBUTION WIDTH 13.7 % (11.5-14.5); WHITE BLOOD COUNT 7.5 10^3/uL (4.0-10.0)
[2017-07-02 16:35] LABS: ALBUMIN 3.4 GM/DL (3.2-5.2); ALBUMIN/GLOBULIN RATIO 0.85 (1.00-1.93); BILIRUBIN,TOTAL 0.2 MG/DL (0.2-1.0); CALCIUM LEVEL 8.8 MG/DL (8.5-10.1); CREATININE FOR GFR 1.93 MG/DL (0.70-1.30); GLOMERULAR FILTRATION RATE 38.3 (>56); TOTAL PROTEIN 7.4 GM/DL (6.4-8.2)
[2017-07-02 16:40] LABS: POTASSIUM SERUM 5.9 MEQ/L (3.5-5.1)
== END ==
LOC: M SFHCCAPE 07:01
PROVIDERS: ATTEND Physician Assistant
DX: E87.5 Hyperkalemia (principal)

== ENCOUNTER → 2017-07-08 | Outpatient (REF) | payer MEDICARE ==
[2017-07-08 16:38] LABS: ALBUMIN 3.4 GM/DL (3.2-5.2); ALBUMIN/GLOBULIN RATIO 0.92 (1.00-1.93); BILIRUBIN,TOTAL 0.2 MG/DL (0.2-1.0); CALCIUM LEVEL 8.6 MG/DL (8.5-10.1); CREATININE FOR GFR 2.13 MG/DL (0.70-1.30); GLOMERULAR FILTRATION RATE 34.1 (>56); TOTAL PROTEIN 7.1 GM/DL (6.4-8.2)
[2017-07-08 16:40] LABS: POTASSIUM SERUM 5.4 MEQ/L (3.5-5.1)
== END ==
LOC: M SFHCCAPE 07:01
PROVIDERS: ATTEND Physician Assistant
DX: E87.5 Hyperkalemia (principal)

== ENCOUNTER → 2017-09-28 | Outpatient (REF) | payer MEDICARE ==
[2017-09-28 16:34] LABS: BASO # 0.1 10^3/uL (0.0-0.2); EOS # 0.2 10^3/uL (0.0-0.50); EOS % 2.9 % (0.0-3.0); HEMATOCRIT 28.3 % (42.0-52.0); HEMOGLOBIN 9.2 g/dl (14.0-18.0); IMMATURE GRANULOCYTE % 0.7 % (0-3.0); LYMPH # 1.3 10^3/uL (1.5-4.5); LYMPH % 22.1 % (24.0-44.0); MEAN CORPUSCULAR HEMOGLOBIN 28.2 pg (27.0-33.0); MEAN CORPUSCULAR HGB CONC 32.5 g/dl (32.0-36.5); MEAN CORPUSCULAR VOLUME 86.8 fl (80.0-96.0); MONO # 0.5 10^3/uL (0.0-0.8); MONO % 9.1 % (0.0-5.0); NEUTROPHILS # 3.8 10^3/uL (1.8-7.7); NEUTROPHILS % 64.2 % (36.0-66.0); PLATELET COUNT, AUTOMATED 341 10^3/uL (150-450); RED BLOOD COUNT 3.26 10^6/uL (4.30-6.10); RED CELL DISTRIBUTION WIDTH 13.2 % (11.5-14.5); WHITE BLOOD COUNT 5.9 10^3/uL (4.0-10.0)
[2017-09-28 17:26] LABS: ALBUMIN 3.6 GM/DL (3.2-5.2); ALKALINE PHOSPHATASE 104 U/L (45-117); ALT/SGPT 15 U/L (12-78); ANION GAP 10 MEQ/L (8-16); AST/SGOT 8 U/L (7-37); BILIRUBIN,TOTAL 0.2 MG/DL (0.2-1.0); BLOOD UREA NITROGEN 67 MG/DL (7-18); CALCIUM LEVEL 8.7 MG/DL (8.5-10.1); CARBON DIOXIDE LEVEL 25 MEQ/L (21-32); CHLORIDE LEVEL 103 MEQ/L (98-107); CHOLESTEROL LEVEL 134 MG/DL (<200); CHOLESTEROL RISK RATIO 3.621 (<5); CREATININE FOR GFR 2.31 MG/DL (0.70-1.30); GLUCOSE, FASTING 235 MG/DL (70-100); HDL CHOLESTEROL 37 MG/DL (>40); LDL CHOLESTEROL 47.2 MG/DL (<100); NON-HDL-C 97 MG/DL; POTASSIUM SERUM 4.4 MEQ/L (3.5-5.1); SODIUM LEVEL 138 MEQ/L (136-145); TOTAL PROTEIN 7.2 GM/DL (6.4-8.2); TRIGLYCERIDES LEVEL 249 MG/DL (<150)
[2017-09-28 17:47] LABS: ESTIMATED AVERAGE GLUCOSE 186 MG/DL (60-110); HEMOGLOBIN A1c 8.1 %
== END ==
LOC: M SFHCCAPE 07:04
DX: E11.8 Type 2 diabetes mellitus with unspecified complications (principal); E78.2 Mixed hyperlipidemia
CPT/HCPCS: 80053

== ENCOUNTER → 2017-09-30 | Outpatient (REF) | payer MEDICARE ==
[2017-09-30 15:01] LABS: FERRITIN 204 NG/ML (26-388); IRON (FE) 72 UG/DL (65-175); TOTAL IRON BINDING CAPACITY 277 UG/DL (250-450)
== END ==
LOC: M LAB REF 14:15
DX: D50.9 Iron deficiency anemia, unspecified (principal)
CPT/HCPCS: 83550

== ENCOUNTER 2017-11-03 11:03 | Inpatient (IN) | payer MEDICARE ==
[2017-11-03] MEDS: NS 1,000 ML IV (14:00)
[2017-11-03 14:50] LABS: BASO % 0.4 % (0.0-1.0); EOS # 0.3 10^3/uL (0.0-0.50); HEMATOCRIT 24.7 % (42.0-52.0); IMMATURE GRANULOCYTE % 0.4 % (0-3.0); LYMPH # 1.5 10^3/uL (1.5-4.5); LYMPH % 16.4 % (24.0-44.0); MEAN CORPUSCULAR HEMOGLOBIN 28.3 pg (27.0-33.0); MEAN CORPUSCULAR HGB CONC 32.4 g/dl (32.0-36.5); MEAN CORPUSCULAR VOLUME 87.3 fl (80.0-96.0); MONO # 0.7 10^3/uL (0.0-0.8); MONO % 7.8 % (0.0-5.0); NEUTROPHILS # 6.6 10^3/uL (1.8-7.7); PLATELET COUNT, AUTOMATED 338 10^3/uL (150-450); RED BLOOD COUNT 2.83 10^6/uL (4.30-6.10); RED CELL DISTRIBUTION WIDTH 13.1 % (11.5-14.5); WHITE BLOOD COUNT 9.2 10^3/uL (4.0-10.0)
[2017-11-03 15:16] LABS: ANION GAP 9 MEQ/L (8-16); BLOOD UREA NITROGEN 50 MG/DL (7-18); C REACTIVE PROTEIN QUANTITATIV 6.36 MG/DL (0.00-0.30); CALCIUM LEVEL 8.8 MG/DL (8.5-10.1); CARBON DIOXIDE LEVEL 23 MEQ/L (21-32); CHLORIDE LEVEL 106 MEQ/L (98-107); GLOMERULAR FILTRATION RATE 34.6 (>56); GLUCOSE, FASTING 107 MG/DL (70-100); POTASSIUM SERUM 4.4 MEQ/L (3.5-5.1); SODIUM LEVEL 138 MEQ/L (136-145)
[2017-11-03 15:17] LABS: LACTIC ACID SEPSIS PROTOCOL 0.6 MMOL/L (0.4-2.0)
[2017-11-03] MEDS: GENTAMICIN 120 MG in D5W 50 ML IV (15:20)
[2017-11-03 15:24] LABS: ERYTHROCYTE SEDIMENTATION RATE 107 mm/hr (0-20)
[2017-11-03] MEDS ORDERED: ACETAMINOPHEN TAB 650MG DOSE (2X325MG) PO (20:30)
[2017-11-03] MEDS ORDERED: VANCOMYCIN HCL 750 MG, VIAL MATE ADAPTER 1 EACH in D5W 250 ML IV (21:00)
[2017-11-03] MEDS: CEFTRIAXONE SOD 1 GM in APPROPRIATE DILUENT 1 EA IV (21:04)
[2017-11-03] MEDS: VANCOMYCIN HCL 1,000 MG, VIAL MATE ADAPTER 1 EACH in D5W 250 ML IV (22:52)
[2017-11-04] MEDS: VANCOMYCIN HCL 1,000 MG, VIAL MATE ADAPTER 1 EACH in D5W 250 ML IV ×2 (05:25→20:02)
[2017-11-04 06:47] LABS: BASO # 0.1 10^3/uL (0.0-0.2); BASO % 0.7 % (0.0-1.0); EOS # 0.3 10^3/uL (0.0-0.50); IMMATURE GRANULOCYTE % 0.4 % (0-3.0); LYMPH # 1.1 10^3/uL (1.5-4.5); LYMPH % 14.9 % (24.0-44.0); MEAN CORPUSCULAR HEMOGLOBIN 28.1 pg (27.0-33.0); MEAN CORPUSCULAR HGB CONC 32.4 g/dl (32.0-36.5); MEAN CORPUSCULAR VOLUME 86.8 fl (80.0-96.0); MONO # 0.7 10^3/uL (0.0-0.8); MONO % 9.7 % (0.0-5.0); NEUTROPHILS % 70.3 % (36.0-66.0); PLATELET COUNT, AUTOMATED 288 10^3/uL (150-450); RED BLOOD COUNT 2.42 10^6/uL (4.30-6.10); RED CELL DISTRIBUTION WIDTH 13.1 % (11.5-14.5)
[2017-11-04 06:50] LABS: HEMOGLOBIN 6.8 g/dl (13.5-17.5)
[2017-11-04 07:04] LABS: ANION GAP 9 MEQ/L (8-16); BLOOD UREA NITROGEN 48 MG/DL (7-18); C REACTIVE PROTEIN QUANTITATIV 5.99 MG/DL (0.00-0.30); CALCIUM LEVEL 8.5 MG/DL (8.5-10.1); CARBON DIOXIDE LEVEL 23 MEQ/L (21-32); CHLORIDE LEVEL 105 MEQ/L (98-107); CREATININE FOR GFR 2.25 MG/DL (0.70-1.30); GLOMERULAR FILTRATION RATE 31.9 (>56); GLUCOSE, FASTING 141 MG/DL (70-100); MAGNESIUM LEVEL 1.9 MG/DL (1.8-2.4); POTASSIUM SERUM 4.5 MEQ/L (3.5-5.1); SODIUM LEVEL 137 MEQ/L (136-145)
[2017-11-04] MEDS: ENOXAPARIN 40 MG/0.4 ML SYRINGE (J1650) SC (09:00)
[2017-11-04] MEDS: LEVEMIR (INSULIN DETEMIR) 1 UNITS/0.01ML SC ×2 (09:00→20:41)
[2017-11-04] MEDS ORDERED: DEXTROSE 50% 50 ML SYRINGE IV (12:15)
[2017-11-04] MEDS ORDERED: GLUCAGON FOR INJ 1 MG VIAL (J1610) SC (12:15)
[2017-11-04] MEDS ORDERED: GLUCOSE 4 GM CHEW TABLET PO (12:15)
[2017-11-04 12:20] LABS: BEDSIDE GLUCOSE 204 MG/DL (70-105)
[2017-11-04] MEDS: HumaLOG INSULIN (NovoLOG) PER UNIT SC ×3 (12:52→20:41)
[2017-11-04 13:12] LABS: REASON FOR REVIEW ANEMIA / RBC MORPH; SLIDE REVIEW Report; SOURCE PERIPHERAL SMEAR
[2017-11-04 13:27] LABS: CHOLESTEROL LEVEL 89 MG/DL (<200); CHOLESTEROL RISK RATIO 3.178 (<5); HDL CHOLESTEROL 28 MG/DL (>40); IRON (FE) 36 UG/DL (65-175); NON-HDL-C 61 MG/DL; PERCENT SATURATION 16.6 % (19.7-50.0); TOTAL IRON BINDING CAPACITY 217 UG/DL (250-450); TRIGLYCERIDES LEVEL 195 MG/DL (<150)
[2017-11-04 13:59] LABS: ESTIMATED AVERAGE GLUCOSE 192 MG/DL (60-110); HEMOGLOBIN A1c 8.3 %
[2017-11-04 17:27] LABS: BEDSIDE GLUCOSE 227 MG/DL (70-105)
[2017-11-04 20:19] LABS: BEDSIDE GLUCOSE 270 MG/DL (70-105)
[2017-11-04 21:16] LABS: HEMATOCRIT 23.3 % (42.0-52.0); HEMOGLOBIN 7.5 g/dl (13.5-17.5)
[2017-11-04 21:44] LABS: IMMEDIATE SPIN CROSSMATCH 1 2
[2017-11-05 00:58] LABS: HEMATOCRIT 25.4 % (42.0-52.0); HEMOGLOBIN 8.3 g/dl (13.5-17.5)
[2017-11-05] MEDS: VANCOMYCIN HCL 1,000 MG, VIAL MATE ADAPTER 1 EACH in D5W 250 ML IV ×3 (05:30→17:45)
[2017-11-05 07:09] LABS: BASO # 0.1 10^3/uL (0.0-0.2); BASO % 0.9 % (0.0-1.0); EOS # 0.3 10^3/uL (0.0-0.50); EOS % 4.5 % (0.0-3.0); HEMATOCRIT 24.9 % (42.0-52.0); HEMOGLOBIN 8.2 g/dl (13.5-17.5); IMMATURE GRANULOCYTE % 0.6 % (0-3.0); LYMPH # 1.2 10^3/uL (1.5-4.5); LYMPH % 17.7 % (24.0-44.0); MEAN CORPUSCULAR HEMOGLOBIN 28.4 pg (27.0-33.0); MEAN CORPUSCULAR HGB CONC 32.9 g/dl (32.0-36.5); MEAN CORPUSCULAR VOLUME 86.2 fl (80.0-96.0); MONO # 0.8 10^3/uL (0.0-0.8); MONO % 11.6 % (0.0-5.0); NEUTROPHILS # 4.2 10^3/uL (1.8-7.7); NEUTROPHILS % 64.7 % (36.0-66.0); PLATELET COUNT, AUTOMATED 290 10^3/uL (150-450); RED BLOOD COUNT 2.89 10^6/uL (4.30-6.10); RED CELL DISTRIBUTION WIDTH 13.1 % (11.5-14.5); WHITE BLOOD COUNT 6.5 10^3/uL (4.0-10.0)
[2017-11-05 07:28] LABS: C REACTIVE PROTEIN QUANTITATIV 4.89 MG/DL (0.00-0.30)
[2017-11-05 07:29] LABS: ANION GAP 8 MEQ/L (8-16); BLOOD UREA NITROGEN 49 MG/DL (7-18); CALCIUM LEVEL 8.2 MG/DL (8.5-10.1); CARBON DIOXIDE LEVEL 22 MEQ/L (21-32); CHLORIDE LEVEL 110 MEQ/L (98-107); CREATININE FOR GFR 2.17 MG/DL (0.70-1.30); GLOMERULAR FILTRATION RATE 33.3 (>56); GLUCOSE, FASTING 142 MG/DL (70-100); POTASSIUM SERUM 4.7 MEQ/L (3.5-5.1); SODIUM LEVEL 140 MEQ/L (136-145)
[2017-11-05] MEDS: HumaLOG INSULIN (NovoLOG) PER UNIT SC ×4 (08:29→20:02)
[2017-11-05] MEDS: LEVEMIR (INSULIN DETEMIR) 1 UNITS/0.01ML SC ×2 (08:30→20:03)
[2017-11-05] MEDS: ENOXAPARIN 40 MG/0.4 ML SYRINGE (J1650) SC (08:30)
[2017-11-05 12:05] LABS: BEDSIDE GLUCOSE 191 MG/DL (70-105)
[2017-11-05 17:03] LABS: BEDSIDE GLUCOSE 157 MG/DL (70-105)
[2017-11-05 17:41] LABS: VANCOMYCIN LEVEL TROUGH 25.9 UG/ML (10.0-20.0)
[2017-11-05 20:10] LABS: BEDSIDE GLUCOSE 183 MG/DL (70-105)
[2017-11-06] MEDS: amLODIPine 10 MG TAB PO (06:10)
[2017-11-06] MEDS: VANCOMYCIN HCL 1,000 MG, VIAL MATE ADAPTER 1 EACH in D5W 250 ML IV ×2 (06:11→23:14)
[2017-11-06 07:05] LABS: BASO # 0.1 10^3/uL (0.0-0.2); BASO % 0.7 % (0.0-1.0); EOS # 0.3 10^3/uL (0.0-0.50); EOS % 4.2 % (0.0-3.0); HEMATOCRIT 25.4 % (42.0-52.0); HEMOGLOBIN 8.2 g/dl (13.5-17.5); IMMATURE GRANULOCYTE % 0.4 % (0-3.0); LYMPH # 1.1 10^3/uL (1.5-4.5); LYMPH % 15.6 % (24.0-44.0); MEAN CORPUSCULAR HEMOGLOBIN 28.3 pg (27.0-33.0); MEAN CORPUSCULAR HGB CONC 32.3 g/dl (32.0-36.5); MEAN CORPUSCULAR VOLUME 87.6 fl (80.0-96.0); MONO # 0.7 10^3/uL (0.0-0.8); MONO % 9.7 % (0.0-5.0); NEUTROPHILS # 4.8 10^3/uL (1.8-7.7); NEUTROPHILS % 69.4 % (36.0-66.0); PLATELET COUNT, AUTOMATED 294 10^3/uL (150-450); RED CELL DISTRIBUTION WIDTH 13.2 % (11.5-14.5); WHITE BLOOD COUNT 6.9 10^3/uL (4.0-10.0)
[2017-11-06 07:31] LABS: ANION GAP 7 MEQ/L (8-16); BLOOD UREA NITROGEN 45 MG/DL (7-18); C REACTIVE PROTEIN QUANTITATIV 3.36 MG/DL (0.00-0.30); CALCIUM LEVEL 8.9 MG/DL (8.5-10.1); CARBON DIOXIDE LEVEL 22 MEQ/L (21-32); CHLORIDE LEVEL 111 MEQ/L (98-107); CREATININE FOR GFR 2.08 MG/DL (0.70-1.30); GLUCOSE, FASTING 186 MG/DL (70-100); MAGNESIUM LEVEL 2.2 MG/DL (1.8-2.4); POTASSIUM SERUM 4.7 MEQ/L (3.5-5.1); SODIUM LEVEL 140 MEQ/L (136-145)
[2017-11-06] MEDS: ENOXAPARIN 40 MG/0.4 ML SYRINGE (J1650) SC (08:31)
[2017-11-06] MEDS: LEVEMIR (INSULIN DETEMIR) 1 UNITS/0.01ML SC ×2 (08:32→21:00)
[2017-11-06] MEDS: HumaLOG INSULIN (NovoLOG) PER UNIT SC ×4 (08:32→21:00)
[2017-11-06 12:11] LABS: BEDSIDE GLUCOSE 161 MG/DL (70-105)
[2017-11-06 17:14] LABS: BEDSIDE GLUCOSE 276 MG/DL (70-105)
[2017-11-06] MEDS: LISINOPRIL 40 MG TAB PO (21:50)
[2017-11-06] MEDS: METOPROLOL SUCC (TopROL XL) 50MG **XL** TAB PO (21:52)
[2017-11-06 22:01] LABS: BEDSIDE GLUCOSE 189 MG/DL (70-105)
[2017-11-07 07:03] LABS: ANION GAP 4 MEQ/L (8-16); BLOOD UREA NITROGEN 46 MG/DL (7-18); C REACTIVE PROTEIN QUANTITATIV 2.45 MG/DL (0.00-0.30); CALCIUM LEVEL 8.3 MG/DL (8.5-10.1); CARBON DIOXIDE LEVEL 24 MEQ/L (21-32); CHLORIDE LEVEL 111 MEQ/L (98-107); CREATININE FOR GFR 2.08 MG/DL (0.70-1.30); GLUCOSE, FASTING 186 MG/DL (70-100); MAGNESIUM LEVEL 2.1 MG/DL (1.8-2.4); POTASSIUM SERUM 4.8 MEQ/L (3.5-5.1); SODIUM LEVEL 139 MEQ/L (136-145)
[2017-11-07 07:08] LABS: BASO # 0.1 10^3/uL (0.0-0.2); BASO % 0.8 % (0.0-1.0); EOS # 0.3 10^3/uL (0.0-0.50); EOS % 4.1 % (0.0-3.0); IMMATURE GRANULOCYTE % 0.4 % (0-3.0); LYMPH # 1.1 10^3/uL (1.5-4.5); LYMPH % 15.8 % (24.0-44.0); MEAN CORPUSCULAR HEMOGLOBIN 28.2 pg (27.0-33.0); MONO # 0.7 10^3/uL (0.0-0.8); MONO % 9.2 % (0.0-5.0); NEUTROPHILS % 69.7 % (36.0-66.0); PLATELET COUNT, AUTOMATED 323 10^3/uL (150-450); RED BLOOD COUNT 2.84 10^6/uL (4.30-6.10); RED CELL DISTRIBUTION WIDTH 13.2 % (11.5-14.5); WHITE BLOOD COUNT 7.1 10^3/uL (4.0-10.0)
[2017-11-07] MEDS: amLODIPine 10 MG TAB PO (08:41)
[2017-11-07] MEDS: HumaLOG INSULIN (NovoLOG) PER UNIT SC ×4 (08:41→20:45)
[2017-11-07] MEDS: LEVEMIR (INSULIN DETEMIR) 1 UNITS/0.01ML SC ×2 (08:42→20:45)
[2017-11-07] MEDS: ENOXAPARIN 40 MG/0.4 ML SYRINGE (J1650) SC (08:42)
[2017-11-07 12:08] LABS: BEDSIDE GLUCOSE 240 MG/DL (70-105)
[2017-11-07 17:24] LABS: BEDSIDE GLUCOSE 386 MG/DL (70-105)
[2017-11-07 20:22] LABS: BEDSIDE GLUCOSE 301 MG/DL (70-105)
[2017-11-07] MEDS: METOPROLOL SUCC (TopROL XL) 50MG **XL** TAB PO (20:42)
[2017-11-07] MEDS: LISINOPRIL 40 MG TAB PO (20:45)
[2017-11-08] MEDS: VANCOMYCIN HCL 1,000 MG, VIAL MATE ADAPTER 1 EACH in D5W 250 ML IV (00:32)
[2017-11-08 06:20] LABS: BASO % 0.6 % (0.0-1.0); EOS # 0.3 10^3/uL (0.0-0.50); EOS % 4.3 % (0.0-3.0); HEMATOCRIT 26.9 % (42.0-52.0); HEMOGLOBIN 8.6 g/dl (13.5-17.5); IMMATURE GRANULOCYTE % 0.6 % (0-3.0); LYMPH # 1.3 10^3/uL (1.5-4.5); LYMPH % 18.1 % (24.0-44.0); MEAN CORPUSCULAR HEMOGLOBIN 27.8 pg (27.0-33.0); MEAN CORPUSCULAR VOLUME 87.1 fl (80.0-96.0); MONO # 0.7 10^3/uL (0.0-0.8); MONO % 9.3 % (0.0-5.0); NEUTROPHILS # 4.7 10^3/uL (1.8-7.7); NEUTROPHILS % 67.1 % (36.0-66.0); PLATELET COUNT, AUTOMATED 325 10^3/uL (150-450); RED BLOOD COUNT 3.09 10^6/uL (4.30-6.10); RED CELL DISTRIBUTION WIDTH 13.2 % (11.5-14.5)
[2017-11-08 06:34] LABS: ANION GAP 9 MEQ/L (8-16); BLOOD UREA NITROGEN 44 MG/DL (7-18); C REACTIVE PROTEIN QUANTITATIV 1.97 MG/DL (0.00-0.30); CALCIUM LEVEL 8.9 MG/DL (8.5-10.1); CARBON DIOXIDE LEVEL 20 MEQ/L (21-32); CHLORIDE LEVEL 113 MEQ/L (98-107); GLOMERULAR FILTRATION RATE 32.8 (>56); GLUCOSE, FASTING 181 MG/DL (70-100); MAGNESIUM LEVEL 2.5 MG/DL (1.8-2.4); POTASSIUM SERUM 4.8 MEQ/L (3.5-5.1); SODIUM LEVEL 142 MEQ/L (136-145)
[2017-11-08] MEDS: LEVEMIR (INSULIN DETEMIR) 1 UNITS/0.01ML SC ×2 (08:38→20:25)
[2017-11-08] MEDS: TORSEMIDE 20 MG TAB PO (08:39)
[2017-11-08] MEDS: amLODIPine 10 MG TAB PO (08:39)
[2017-11-08] MEDS: ENOXAPARIN 40 MG/0.4 ML SYRINGE (J1650) SC (08:39)
[2017-11-08] MEDS: HumaLOG INSULIN (NovoLOG) PER UNIT SC ×4 (08:40→20:25)
[2017-11-08 11:52] LABS: BEDSIDE GLUCOSE 290 MG/DL (70-105)
[2017-11-08] MEDS: **hydrALAZINE** 10 MG TAB PO ×2 (12:11→17:27)
[2017-11-08 17:01] LABS: BEDSIDE GLUCOSE 192 MG/DL (70-105)
[2017-11-08 20:03] LABS: BEDSIDE GLUCOSE 185 MG/DL (70-105)
[2017-11-08] MEDS: METOPROLOL SUCC (TopROL XL) 50MG **XL** TAB PO (20:26)
[2017-11-08] MEDS: LISINOPRIL 40 MG TAB PO (20:26)
[2017-11-09] MEDS: VANCOMYCIN HCL 1,000 MG, VIAL MATE ADAPTER 1 EACH in D5W 250 ML IV (00:04)
[2017-11-09] MEDS: **hydrALAZINE** 10 MG TAB PO ×2 (00:06→06:22)
[2017-11-09 07:18] LABS: BASO # 0.1 10^3/uL (0.0-0.2); EOS # 0.3 10^3/uL (0.0-0.50); HEMATOCRIT 25.7 % (42.0-52.0); HEMOGLOBIN 8.3 g/dl (13.5-17.5); IMMATURE GRANULOCYTE % 0.9 % (0-3.0); LYMPH # 1.2 10^3/uL (1.5-4.5); LYMPH % 17.3 % (24.0-44.0); MEAN CORPUSCULAR HEMOGLOBIN 28.6 pg (27.0-33.0); MEAN CORPUSCULAR HGB CONC 32.3 g/dl (32.0-36.5); MEAN CORPUSCULAR VOLUME 88.6 fl (80.0-96.0); MONO # 0.6 10^3/uL (0.0-0.8); MONO % 9.4 % (0.0-5.0); NEUTROPHILS # 4.6 10^3/uL (1.8-7.7); NEUTROPHILS % 67.4 % (36.0-66.0); PLATELET COUNT, AUTOMATED 316 10^3/uL (150-450); RED CELL DISTRIBUTION WIDTH 13.2 % (11.5-14.5); WHITE BLOOD COUNT 6.8 10^3/uL (4.0-10.0)
[2017-11-09 07:38] LABS: ANION GAP 7 MEQ/L (8-16); BLOOD UREA NITROGEN 51 MG/DL (7-18); CALCIUM LEVEL 8.7 MG/DL (8.5-10.1); CARBON DIOXIDE LEVEL 21 MEQ/L (21-32); CHLORIDE LEVEL 111 MEQ/L (98-107); CREATININE FOR GFR 2.23 MG/DL (0.70-1.30); GLOMERULAR FILTRATION RATE 32.3 (>56); GLUCOSE, FASTING 221 MG/DL (70-100); MAGNESIUM LEVEL 2.2 MG/DL (1.8-2.4); POTASSIUM SERUM 4.7 MEQ/L (3.5-5.1); SODIUM LEVEL 139 MEQ/L (136-145)
[2017-11-09] MEDS: HumaLOG INSULIN (NovoLOG) PER UNIT SC (08:39)
[2017-11-09] MEDS: amLODIPine 10 MG TAB PO (08:39)
[2017-11-09] MEDS: LEVEMIR (INSULIN DETEMIR) 1 UNITS/0.01ML SC (08:40)
== END 2017-11-09 09:00 | disposition home or self-care (01) | DRG 74 ==
LOC: M ED 11:03 → M ED INP 20:18 → M MS4PR 22:00
DX: E11.610 Type 2 diabetes mellitus with diabetic neuropathic arthropathy (principal); Z68.42 Body mass index [BMI] 45.0-49.9, adult; E11.621 Type 2 diabetes mellitus with foot ulcer; E66.01 Morbid (severe) obesity due to excess calories; N18.3 Chronic kidney disease, stage 3 (moderate); I12.9 Hypertensive chronic kidney disease with stage 1 through stage 4 chronic kidney disease, or unspecified chronic kidney disease; Z89.512 Acquired absence of left leg below knee; I89.0 Lymphedema, not elsewhere classified; Z79.899 Other long term (current) drug therapy; Z79.82 Long term (current) use of aspirin; E88.81 Metabolic syndrome and other insulin resistance; Z95.0 Presence of cardiac pacemaker; Z29.8 Encounter for other specified prophylactic measures; Z79.4 Long term (current) use of insulin; I49.5 Sick sinus syndrome

== ENCOUNTER → 2018-01-04 | Outpatient (REF) | payer MEDICARE ==
[2018-01-04 18:21] LABS: BASO # 0.1 10^3/uL (0.0-0.2); BASO % 0.7 % (0.0-1.0); EOS # 0.3 10^3/uL (0.0-0.50); EOS % 4.2 % (0.0-3.0); HEMATOCRIT 24.2 % (42.0-52.0); HEMOGLOBIN 7.6 g/dl (13.5-17.5); IMMATURE GRANULOCYTE % 0.6 % (0-3.0); LYMPH # 1.2 10^3/uL (1.5-4.5); LYMPH % 18.5 % (24.0-44.0); MEAN CORPUSCULAR HEMOGLOBIN 27.9 pg (27.0-33.0); MEAN CORPUSCULAR HGB CONC 31.4 g/dl (32.0-36.5); MONO # 0.5 10^3/uL (0.0-0.8); MONO % 7.2 % (0.0-5.0); NEUTROPHILS # 4.6 10^3/uL (1.8-7.7); NEUTROPHILS % 68.8 % (36.0-66.0); PLATELET COUNT, AUTOMATED 333 10^3/uL (150-450); RED BLOOD COUNT 2.72 10^6/uL (4.30-6.10); RED CELL DISTRIBUTION WIDTH 13.8 % (11.5-14.5); WHITE BLOOD COUNT 6.7 10^3/uL (4.0-10.0)
[2018-01-04 18:30] LABS: ALBUMIN 3.2 GM/DL (3.2-5.2); ALBUMIN/GLOBULIN RATIO 0.84 (1.00-1.93); ALKALINE PHOSPHATASE 84 U/L (45-117); ALT/SGPT 12 U/L (12-78); ANION GAP 10 MEQ/L (8-16); AST/SGOT 8 U/L (7-37); BILIRUBIN,TOTAL 0.2 MG/DL (0.2-1.0); BLOOD UREA NITROGEN 54 MG/DL (7-18); CALCIUM LEVEL 8.9 MG/DL (8.5-10.1); CARBON DIOXIDE LEVEL 24 MEQ/L (21-32); CHLORIDE LEVEL 107 MEQ/L (98-107); CHOLESTEROL LEVEL 97 MG/DL (<200); CHOLESTEROL RISK RATIO 2.771 (<5); CREATININE FOR GFR 2.65 MG/DL (0.70-1.30); GLOMERULAR FILTRATION RATE 26.4 (>56); GLUCOSE, FASTING 140 MG/DL (70-100); HDL CHOLESTEROL 35 MG/DL (>40); LDL CHOLESTEROL 30.6 MG/DL (<100); NON-HDL-C 62 MG/DL; POTASSIUM SERUM 4.7 MEQ/L (3.5-5.1); SODIUM LEVEL 141 MEQ/L (136-145); TRIGLYCERIDES LEVEL 157 MG/DL (<150)
[2018-01-04 18:51] LABS: ESTIMATED AVERAGE GLUCOSE 186 MG/DL (60-110); HEMOGLOBIN A1c 8.1 %
[2018-01-04 18:55] LABS: CREATININE, URINE 48.3 MG/DL; MAU/CREAT RATIO 5962.7 MCG/MG (0.0-30.0)
== END ==
LOC: M SFHCCAPE 07:02
DX: E11.8 Type 2 diabetes mellitus with unspecified complications (principal)
CPT/HCPCS: 80053

== ENCOUNTER → 2018-04-06 | Outpatient (REF) | payer MEDICARE ==
[2018-04-06 17:41] LABS: ALBUMIN 3.1 GM/DL (3.2-5.2); ALBUMIN/GLOBULIN RATIO 0.74 (1.00-1.93); ALKALINE PHOSPHATASE 90 U/L (45-117); ALT/SGPT 15 U/L (12-78); ANION GAP 13 MEQ/L (8-16); AST/SGOT 11 U/L (7-37); BILIRUBIN,TOTAL 0.3 MG/DL (0.2-1.0); BLOOD UREA NITROGEN 48 MG/DL (7-18); CALCIUM LEVEL 9.6 MG/DL (8.5-10.1); CARBON DIOXIDE LEVEL 20 MEQ/L (21-32); CHLORIDE LEVEL 104 MEQ/L (98-107); CHOLESTEROL LEVEL 231 MG/DL (<200); CHOLESTEROL RISK RATIO 4.714 (<5); CREATININE FOR GFR 2.84 MG/DL (0.70-1.30); GLOMERULAR FILTRATION RATE 24.4 (>56); GLUCOSE, FASTING 227 MG/DL (70-100); HDL CHOLESTEROL 49 MG/DL (>40); NON-HDL-C 182 MG/DL; POTASSIUM SERUM 4.7 MEQ/L (3.5-5.1); SODIUM LEVEL 137 MEQ/L (136-145); TOTAL PROTEIN 7.3 GM/DL (6.4-8.2); TRIGLYCERIDES LEVEL 568 MG/DL (<150)
[2018-04-06 17:46] LABS: ESTIMATED AVERAGE GLUCOSE 269 MG/DL (60-110)
[2018-04-06 17:52] LABS: BASO # 0.1 10^3/uL (0.0-0.2); BASO % 0.5 % (0.0-1.0); EOS # 0.2 10^3/uL (0.0-0.50); EOS % 1.6 % (0.0-3.0); HEMATOCRIT 27.1 % (42.0-52.0); HEMOGLOBIN 8.9 g/dl (13.5-17.5); IMMATURE GRANULOCYTE % 0.7 % (0-3.0); LYMPH # 1.3 10^3/uL (1.5-4.5); LYMPH % 13.9 % (24.0-44.0); MEAN CORPUSCULAR HEMOGLOBIN 28.6 pg (27.0-33.0); MEAN CORPUSCULAR HGB CONC 32.8 g/dl (32.0-36.5); MEAN CORPUSCULAR VOLUME 87.1 fl (80.0-96.0); MONO # 0.7 10^3/uL (0.0-0.8); MONO % 7.2 % (0.0-5.0); NEUTROPHILS # 7.3 10^3/uL (1.8-7.7); NEUTROPHILS % 76.1 % (36.0-66.0); PLATELET COUNT, AUTOMATED 337 10^3/uL (150-450); RED BLOOD COUNT 3.11 10^6/uL (4.30-6.10); RED CELL DISTRIBUTION WIDTH 14.3 % (11.5-14.5); WHITE BLOOD COUNT 9.6 10^3/uL (4.0-10.0)
== END ==
LOC: M SFHCCAPE 08:44
DX: D50.9 Iron deficiency anemia, unspecified (principal); I10 Essential (primary) hypertension; E11.8 Type 2 diabetes mellitus with unspecified complications
CPT/HCPCS: 80053

== ENCOUNTER → 2018-04-23 | Outpatient (REF) | payer MEDICARE ==
[2018-04-23 14:31] LABS: FERRITIN 260 NG/ML (26-388); IRON (FE) 86 UG/DL (65-175); PERCENT SATURATION 28.8 % (19.7-50.0); TOTAL IRON BINDING CAPACITY 299 UG/DL (250-450)
[2018-04-23 15:23] LABS: FOLATE 7.9 NG/ML
== END ==
LOC: M LAB REF 13:50
DX: D64.9 Anemia, unspecified (principal)
CPT/HCPCS: 82746

== ENCOUNTER 2018-06-11 07:55 | Outpatient (RCR) | payer MEDICARE | END 2018-07-02 | LOC: M PT 07:55 | DX: E11.40 Type 2 diabetes mellitus with diabetic neuropathy, unspecified (principal); M25.579 Pain in unspecified ankle and joints of unspecified foot; M79.89 Other specified soft tissue disorders | CPT/HCPCS: 97140 ==

== ENCOUNTER → 2018-07-08 | Outpatient (REF) | payer MEDICARE ==
[2018-07-08 17:06] LABS: BASO # 0.1 10^3/uL (0.0-0.2); BASO % 0.8 % (0.0-1.0); EOS # 0.2 10^3/uL (0.0-0.50); EOS % 2.4 % (0.0-3.0); HEMATOCRIT 26.7 % (42.0-52.0); HEMOGLOBIN 8.7 g/dl (13.5-17.5); IMMATURE GRANULOCYTE % 1.4 % (0-3.0); LYMPH # 1.2 10^3/uL (1.5-4.5); MEAN CORPUSCULAR HGB CONC 32.6 g/dl (32.0-36.5); MONO # 0.5 10^3/uL (0.0-0.8); MONO % 7.9 % (0.0-5.0); NEUTROPHILS # 4.2 10^3/uL (1.8-7.7); NEUTROPHILS % 67.5 % (36.0-66.0); PLATELET COUNT, AUTOMATED 368 10^3/uL (150-450); WHITE BLOOD COUNT 6.2 10^3/uL (4.0-10.0)
[2018-07-08 17:10] LABS: ESTIMATED AVERAGE GLUCOSE 326 MG/DL (60-110)
[2018-07-08 17:15] LABS: ALBUMIN 2.9 GM/DL (3.2-5.2); ALBUMIN/GLOBULIN RATIO 0.76 (1.00-1.93); ALKALINE PHOSPHATASE 112 U/L (45-117); ALT/SGPT 12 U/L (12-78); ANION GAP 11 MEQ/L (8-16); AST/SGOT 7 U/L (7-37); BILIRUBIN,TOTAL 0.2 MG/DL (0.2-1.0); BLOOD UREA NITROGEN 49 MG/DL (7-18); CALCIUM LEVEL 8.5 MG/DL (8.5-10.1); CARBON DIOXIDE LEVEL 22 MEQ/L (21-32); CHLORIDE LEVEL 101 MEQ/L (98-107); CHOLESTEROL LEVEL 179 MG/DL (<200); CHOLESTEROL RISK RATIO 4.837 (<5); CREATININE FOR GFR 2.95 MG/DL (0.70-1.30); GLOMERULAR FILTRATION RATE 23.4 (>56); GLUCOSE, FASTING 384 MG/DL (70-100); HDL CHOLESTEROL 37 MG/DL (>40); NON-HDL-C 142 MG/DL; POTASSIUM SERUM 4.1 MEQ/L (3.5-5.1); SODIUM LEVEL 134 MEQ/L (136-145); TOTAL PROTEIN 6.7 GM/DL (6.4-8.2); TRIGLYCERIDES LEVEL 518 MG/DL (<150)
== END ==
LOC: M SFHCCAPE 07:02
DX: E78.2 Mixed hyperlipidemia (principal); E11.8 Type 2 diabetes mellitus with unspecified complications
CPT/HCPCS: 84443

== ENCOUNTER 2018-07-12 15:25 | Emergency (ER) | payer MEDICARE ==
[2018-07-12 15:58] LABS: BEDSIDE GLUCOSE 335 MG/DL (70-105)
[2018-07-12] MEDS: HumuLIN R (REGULAR) INSULIN (NovoLIN R) **100U/ML** PER UNIT IV ×2 (16:16→18:39)
[2018-07-12 16:19] LABS: VENOUS BASE EXCESS -2.9 (-2.0-2.0); VENOUS HCO3 23.5 MEQ/L (23.0-27.0); VENOUS O2 SATURATION 79.8 % (60.0-80.0); VENOUS PARTIAL PRESSURE CO2 48.2 mmHg (38.0-50.0); VENOUS PARTIAL PRESSURE O2 46.4 mmHg (30.0-50.0); VENOUS PH 7.305 UNITS (7.330-7.430); VENOUS STANDARD HCO3 21.7 MEQ/L; VENOUS TOTAL CO2 24.9 MEQ/L (24.0-28.0)
[2018-07-12 16:20] LABS: BASO # 0.1 10^3/uL (0.0-0.2); BASO % 0.6 % (0.0-1.0); EOS # 0.2 10^3/uL (0.0-0.50); EOS % 1.9 % (0.0-3.0); HEMATOCRIT 25.8 % (42.0-52.0); HEMOGLOBIN 8.5 g/dl (13.5-17.5); LYMPH # 1.6 10^3/uL (1.5-4.5); LYMPH % 19.9 % (24.0-44.0); MEAN CORPUSCULAR HEMOGLOBIN 29.1 pg (27.0-33.0); MEAN CORPUSCULAR HGB CONC 32.9 g/dl (32.0-36.5); MEAN CORPUSCULAR VOLUME 88.4 fl (80.0-96.0); MONO # 0.7 10^3/uL (0.0-0.8); MONO % 8.6 % (0.0-5.0); NEUTROPHILS # 5.4 10^3/uL (1.8-7.7); PLATELET COUNT, AUTOMATED 311 10^3/uL (150-450); RED BLOOD COUNT 2.92 10^6/uL (4.30-6.10); WHITE BLOOD COUNT 7.9 10^3/uL (4.0-10.0)
[2018-07-12 16:42] LABS: ESTIMATED AVERAGE GLUCOSE 332 MG/DL (60-110); HEMOGLOBIN A1c 13.2 %
[2018-07-12 16:51] LABS: ALBUMIN 2.7 GM/DL (3.2-5.2); ALBUMIN/GLOBULIN RATIO 0.73 (1.00-1.93); ALKALINE PHOSPHATASE 91 U/L (45-117); ALT/SGPT 9 U/L (12-78); ANION GAP 8 MEQ/L (8-16); AST/SGOT 8 U/L (7-37); BILIRUBIN,DIRECT < 0.1 MG/DL (0.0-0.2); BILIRUBIN,TOTAL 0.2 MG/DL (0.2-1.0); BLOOD UREA NITROGEN 44 MG/DL (7-18); CALCIUM LEVEL 8.4 MG/DL (8.5-10.1); CARBON DIOXIDE LEVEL 24 MEQ/L (21-32); CHLORIDE LEVEL 101 MEQ/L (98-107); CPK CREATINE PHOSPHOKINASE 85 U/L (39-308); CREATININE FOR GFR 2.85 MG/DL (0.70-1.30); GLOMERULAR FILTRATION RATE 24.3 (>56); GLUCOSE, FASTING 339 MG/DL (70-100); LIPASE 223 U/L (73-393); MB/CK RELATIVE INDEX 2.47 (< OR =4); POTASSIUM SERUM 4.6 MEQ/L (3.5-5.1); SODIUM LEVEL 133 MEQ/L (136-145); TOTAL PROTEIN 6.4 GM/DL (6.4-8.2); TROPONIN I < 0.02 NG/ML (< 0.10)
[2018-07-12] MEDS: hydrALAZINE INJ 20 MG/ML VIAL IV (17:50)
[2018-07-12 17:59] LABS: BEDSIDE GLUCOSE 227 MG/DL (70-105)
[2018-07-12] MEDS: amLODIPine 5 MG TAB PO (18:28)
== END 2018-07-12 19:04 | disposition home or self-care (01) ==
LOC: M ED 15:25
DX: I12.9 Hypertensive chronic kidney disease with stage 1 through stage 4 chronic kidney disease, or unspecified chronic kidney disease (principal); E11.65 Type 2 diabetes mellitus with hyperglycemia; N18.3 Chronic kidney disease, stage 3 (moderate); M14.671 Charcot's joint, right ankle and foot; Z79.899 Other long term (current) drug therapy; Z79.4 Long term (current) use of insulin; Z79.82 Long term (current) use of aspirin; Z98.890 Other specified postprocedural states; Z91.040 Latex allergy status
CPT/HCPCS: 71045

== ENCOUNTER 2018-07-14 09:02 | Outpatient (RCR) | payer MEDICARE ==
[~2018-07-14 09:02] MED LIST changes: +ALCOPAD17 TOP; +ALLO100T PO; -AMLO10TA2 PO; +AMLO10TA4 PO; +BLOOKIT21 XX; +CALC600T31 PO; +CHEW500C2 PO; +CLON-412 PO; +CORE6.25 PO; -DOXY-278 PO; +DOXY-350 PO; +GLUC1TES2 XX; +INSU1MIS20 SC; +INSUHUMDS SC; +LANC30MI XX; +MINO100C63 PO; -VITA1CAP40 PO; +VITA50005 PO
== END 2018-08-02 ==
LOC: M PT 09:02
PROVIDERS: ATTEND Physician Assistant
DX: I89.0 Lymphedema, not elsewhere classified (principal)
CPT/HCPCS: 97140; G8979; G8980

== ENCOUNTER → 2018-10-07 | Outpatient (REF) | payer MEDICARE ==
[~2018-10-07] MED LIST changes: -AMLO10TA4 PO; +AMLO10TA5 PO; +LISI40TA PO; -LISI40TAB PO
[2018-10-07 17:26] LABS: BASO # 0.1 10^3/uL (0.0-0.2); BASO % 0.7 % (0.0-1.0); EOS # 0.2 10^3/uL (0.0-0.50); EOS % 2.8 % (0.0-3.0); HEMATOCRIT 27.9 % (42.0-52.0); HEMOGLOBIN 8.9 g/dl (13.5-17.5); LYMPH # 1.5 10^3/uL (1.5-4.5); LYMPH % 20.7 % (24.0-44.0); MEAN CORPUSCULAR HEMOGLOBIN 28.6 pg (27.0-33.0); MEAN CORPUSCULAR HGB CONC 31.9 g/dl (32.0-36.5); MEAN CORPUSCULAR VOLUME 89.7 fl (80.0-96.0); MONO # 0.6 10^3/uL (0.0-0.8); MONO % 7.8 % (0.0-5.0); NEUTROPHILS # 4.8 10^3/uL (1.8-7.7); NEUTROPHILS % 67.2 % (36.0-66.0); PLATELET COUNT, AUTOMATED 346 10^3/uL (150-450); RED BLOOD COUNT 3.11 10^6/uL (4.30-6.10); WHITE BLOOD COUNT 7.2 10^3/uL (4.0-10.0)
[2018-10-07 17:53] LABS: ALBUMIN 3.1 GM/DL (3.2-5.2); ALT/SGPT 14 U/L (12-78); BILIRUBIN,TOTAL 0.3 MG/DL (0.2-1.0); BLOOD UREA NITROGEN 49 MG/DL (7-18); CALCIUM LEVEL 8.7 MG/DL (8.8-10.2); CARBON DIOXIDE LEVEL 19 MEQ/L (21-32); CHLORIDE LEVEL 107 MEQ/L (98-107); CHOLESTEROL LEVEL 168 MG/DL (<200); CHOLESTEROL RISK RATIO 3.733 (<5); CREATININE FOR GFR 3.07 MG/DL (0.70-1.30); GLOMERULAR FILTRATION RATE 22.2 (>49); GLUCOSE, FASTING 168 MG/DL (70-100); HDL CHOLESTEROL 45 MG/DL (>40); NON-HDL-C 123 MG/DL; POTASSIUM SERUM 4.3 MEQ/L (3.5-5.1); SODIUM LEVEL 138 MEQ/L (136-145); THYROID STIMULATING HORMONE 0.916 uIU/ML (0.358-3.740); TOTAL PROTEIN 6.9 GM/DL (6.4-8.2); TRIGLYCERIDES LEVEL 421 MG/DL (<150)
[2018-10-07 18:00] LABS: HEMOGLOBIN A1c 10.5 %
== END ==
LOC: M SFHCCAPE 07:04
PROVIDERS: ATTEND Physician Assistant
DX: E78.2 Mixed hyperlipidemia (principal); E11.8 Type 2 diabetes mellitus with unspecified complications

== ENCOUNTER → 2018-10-12 | Outpatient (CLI) | payer MEDICARE ==
--- NOTE | 2018-10-12 17:17 | REP ---
UPPER EXTREMITY VEIN MAPPING AND DOPPLER ULTRASOUND: 10/12/2018. Clinical history: Assess vascular anatomy for potential of vascular/fistula graft. Findings: Right upper extremity: Basilic mm: Cephalic mm: Upper humerus: 7.7 mm 6.4 mm Lower humerus:: 7.4 mm 5.9 mm. Antecubital: 6.2 mm 10 mm Upper forearm: 4.1 mm 5.9 mm Lower forearm: None 5.4 mm Wrist: 2.2 mm 5.2 mm Median cubital 9.7 mm none Arterial: PSV: Waveform: Size: Axillary 103.5 cm/S, triphasic, 6.9 mm. Brachial: One 4-0.1 cm/S triphasic 6.2 mm. Radial: 100.8 cm/S, triphasic, 3.3 mm. Ulnar: 107.4 cm/S, triphasic, 3 mm. Left upper extremity: Basilic mm: Cephalic mm: Upper humerus: 8.6 mm 4.7 mm Lower humerus: 6.7 mm 4.8 mm. Antecubital: 5.2 mm occluded Upper forearm: 2.7 mm occluded Lower forearm: 2.0 mm occluded Wrist: 1.9 mm occluded Median cubital: 6.7 mm occluded Arterial: PSV: Waveform: Size: Axillary: 119.5 cm/S triphasic 6.7 mm. Brachial: 145.3 cm/S triphasic 6.1 mm. Radial: 104.6 cm/S triphasic 2.8 mm. Ulnar: 107.4 cm/S triphasic 3.7 mm The cephalic vein on the left is occluded from the antecubital fossa, down the forearm. Electronically Signed by Miguel Angel Kuo MD 10/12/2018 05:08 P
== END ==
LOC: M RAD 08:02
PROVIDERS: ATTEND Internal Medicine Nephrology
DX: Z01.818 Encounter for other preprocedural examination (principal); N18.4 Chronic kidney disease, stage 4 (severe); I82.612 Acute embolism and thrombosis of superficial veins of left upper extremity; I12.9 Hypertensive chronic kidney disease with stage 1 through stage 4 chronic kidney disease, or unspecified chronic kidney disease; R60.0 Localized edema

== ENCOUNTER 2018-11-01 06:33 | Day surgery (SDC) | payer MEDICARE ==
[~2018-11-01] VITALS: Ht 175.3 cm; Wt 148.5 kg
[~2018-11-01 06:33] MED LIST changes: -ASPI1TAB PO; +ASPI81TA26 PO; +HYDR-2541 PO
[2018-11-01] MEDS ORDERED: LIDOCAINE 1% MDV 20ML VIAL ONE (06:34)
[2018-11-01] MEDS ORDERED: MEPIVACAINE HCL 1.5% 30 ML VIAL (J0670) ONE (06:34)
[2018-11-01] MEDS ORDERED: LIDOCAINE 1% SDV INJ 30 ML VIAL As Ordered ONE (07:15)
[2018-11-01] MEDS ORDERED: HEPARIN SOD (PORCINE) 5000 UNITS/ML VIAL As Ordered ONE (07:15)
[2018-11-01] MEDS ORDERED: BUPIVACAINE HCL 0.5% 30 ML VIAL As Ordered ONE (07:15)
[2018-11-01] MEDS ORDERED: MIDAZOLAM INJ 2 MG/2 ML VIAL (J2250) As Ordered ONE (07:51)
[2018-11-01] MEDS ORDERED: PROPOFOL 200 MG/20 ML VIAL As Ordered ONE (07:51)
[2018-11-01] MEDS ORDERED: fentaNYL 100 MCG/2 ML INJECTION (J3010) As Ordered ONE (07:51)
[2018-11-01] MEDS ORDERED: LIDOCAINE 2% INJ 100 MG/5 ML SDV (FOR ANES.) As Ordered ONE (07:52)
[2018-11-01] MEDS ORDERED: METOPROLOL 5 MG/5 ML VIAL As Ordered ONE (07:53)
[2018-11-01] MEDS ORDERED: PERCOCET PO (09:04)
[2018-11-01] MEDS ORDERED: HumaLOG INSULIN (NovoLOG) PER UNIT As Ordered ONE (09:05)
--- NOTE | 2018-11-01 09:13 | ROOPDOC ---
[facility] Report Of Operation Report of Operation DATE OF PROCEDURE: 11/01/18 PREPROCEDURE DIAGNOSES: Stage IV chronic renal insufficiency POSTPROCEDURE DIAGNOSES: Same PROCEDURE: Right upper extremity brachiocephalic AV fistula creation SURGEON: Antonina Jacobson MD ANESTHESIA: Right upper extremity nerve block, monitored anesthesia care, local anesthesia. INDICATION FOR PROCEDURE: Mr. Lujan is a 58-year-old gentleman with stage IV chronic renal insufficiency who requires access for dialysis in the near future. Risks, benefits and alternatives to right upper extremity brachiocephalic AV fistula creation were explained to the patient and he is agreeable to proceed. Informed consent was obtained. PROCEDURE: Preoperatively, our anesthesia colleagues placed right upper extremity nerve clock. The patient was then brought to the OR in stable condition and monitored anesthesia care and antibiotics were administered without complication. His right upper extremity was prepped and draped in a sterile fashion. A timeout was performed. Local anesthesia was a architectural drafting instructor to the skin and subcutaneous tissue just distal to the antecubital crease in the right upper extremity. Small incision was made over the brachial artery pulse and carried down to the subcutaneous tissue with Bovie cautery. The basilic and cephalic vein were identified and skeletonized within the incision. We then continued or dissection deeper down to the brachial artery. The brachial artery was also skeletonized proximally and distally and vessiloops were placed. A bulldog clamp was placed proximally on the cephalic vein within the incision. We then oversewed the distal aspect of the cephalic vein at the juncture with the basilic vein with a 6-0 Prolene suture. The distal vein was transected on a bevelled angle. The Vessey loops were secured and a 5 mm arteriotomy was made. The vein was anastomosis to the artery and an end-to-side fashion with 6-0 Prolene suture. Before the final sutures were placed, we flushed the inflow and outflow of the artery and restored retrograde flow through the vein. We then resecure the Vessey loops and placed her final sutures after irrigating with heparinized saline. We then restored flow through the vein and the inflow artery, and lastly the outflow artery to the hand. Following completion of the anastomosis, the patient had a bounding radial artery pulse, and a good thrill in the cephalic vein. We irrigated with saline, and the deeper tissues were approximated with a running Vicryl suture. The skin was reapproximated with a running subcuticular Monocryl suture. The wound was cleaned and dried. Mastisol and Steri-Strips were used as a final dressing. The patient was then allowed to return to PACU in stable condition. He tolerated the procedure very well. SPECIMENS: None DRAINS: None ESTIMATED BLOOD LOSS: Approximately 5 mL. COMPLICATIONS: None ANTONINA JACOBSON MD Nov 01, 2018 09:13
[2018-11-01] MEDS ORDERED: fentaNYL 100 MCG/2 ML INJECTION (J3010) IV PRN (09:45)
[2018-11-01] MEDS ORDERED: NORCO, ANEXSIA 5/325MG TABLET (HYDROcodone/ACETAMINOPHEN) PO PRN (09:45)
[2018-11-01] MEDS ORDERED: HumaLOG INSULIN (NovoLOG) PER UNIT SC ONE ×2 (09:45→10:00)
[2018-11-01] MEDS ORDERED: D5W/0.2% SODIUM CHLORIDE 1,000 ML IV SCH (09:45)
[2018-11-01 10:43] VITALS: BP 149/63
== END 2018-11-01 11:49 | disposition home or self-care (01) ==
LOC: M SDC 06:33
PROVIDERS: ATTEND Surgery Vascular Surgery
DX: N18.4 Chronic kidney disease, stage 4 (severe) (principal)
CPT/HCPCS: 36821; J0670; J0690; J2250; J3010

== ENCOUNTER 2018-11-27 23:30 | Emergency (ER) | payer MEDICARE ==
[~2018-11-27] VITALS: Ht 175.3 cm; Wt 136.4 kg
[~2018-11-27 23:30] MED LIST changes: +PERCOCET PO
[2018-11-28] MEDS ORDERED: LIDOCAINE W/EPINEPHRINE 1% 20ML VIAL SC ONE
[2018-11-28] MEDS ORDERED: LIDOCAINE W/EPINEPHRINE 1% 20ML VIAL As Ordered ONE (00:05)
[2018-11-28] MEDS ORDERED: METOPROLOL TART 25 MG TABLET PO ONE (00:15)
[2018-11-28] MEDS ORDERED: FLECAINIDE 50MG TABLET PO ONE (00:15)
[2018-11-28] MEDS ORDERED: ASPIRIN 325 MG TAB PO ONE (00:15)
[2018-11-28] MEDS ORDERED: NS 500 ML IV ONE (00:15)
[2018-11-28] MEDS ORDERED: SILVER NITRATE APPLICATOR TOP ONE ×2 (00:30→01:00)
[2018-11-28] MEDS ORDERED: AUGMENTIN 875 MG TAB PO ONE (01:15)
[2018-11-28 01:26] VITALS: BP 183/79
[2018-11-28] MEDS ORDERED: AUGM500T34 PO (01:30)
== END 2018-11-28 01:39 | disposition home or self-care (01) ==
LOC: M ED 23:30
DX: L97.519 Non-pressure chronic ulcer of other part of right foot with unspecified severity (principal); I10 Essential (primary) hypertension; E11.51 Type 2 diabetes mellitus with diabetic peripheral angiopathy without gangrene; I73.9 Peripheral vascular disease, unspecified; N28.9 Disorder of kidney and ureter, unspecified; Z79.899 Other long term (current) drug therapy; Z79.82 Long term (current) use of aspirin; Z79.4 Long term (current) use of insulin

== ENCOUNTER → 2018-12-13 | Outpatient (REF) | payer MEDICARE ==
[~2018-12-13] MED LIST changes: +AUGM500T34 PO
[2018-12-13 19:10] LABS: BASO # 0.1 10^3/uL (0.0-0.2); BASO % 0.7 % (0.0-1.0); EOS # 0.3 10^3/uL (0.0-0.50); EOS % 3.2 % (0.0-3.0); HEMATOCRIT 25.5 % (42.0-52.0); HEMOGLOBIN 7.9 g/dl (13.5-17.5); LYMPH # 1.4 10^3/uL (1.5-4.5); LYMPH % 14.3 % (24.0-44.0); MEAN CORPUSCULAR HEMOGLOBIN 28.5 pg (27.0-33.0); MEAN CORPUSCULAR VOLUME 92.1 fl (80.0-96.0); MONO # 0.7 10^3/uL (0.0-0.8); MONO % 7.4 % (0.0-5.0); NEUTROPHILS # 7.1 10^3/uL (1.8-7.7); NEUTROPHILS % 72.7 % (36.0-66.0); PLATELET COUNT, AUTOMATED 355 10^3/uL (150-450); RED BLOOD COUNT 2.77 10^6/uL (4.30-6.10); WHITE BLOOD COUNT 9.8 10^3/uL (4.0-10.0)
[2018-12-13 19:33] LABS: ALBUMIN 2.6 GM/DL (3.2-5.2); BILIRUBIN,TOTAL 0.3 MG/DL (0.2-1.0); C REACTIVE PROTEIN QUANTITATIV 2.02 MG/DL (0.00-0.30); CALCIUM LEVEL 7.9 MG/DL (8.8-10.2); CREATININE FOR GFR 3.39 MG/DL (0.70-1.30); GLOMERULAR FILTRATION RATE 19.8 (>49); TOTAL PROTEIN 6.3 GM/DL (6.4-8.2)
[2018-12-13 21:17] LABS: ERYTHROCYTE SEDIMENTATION RATE 125 mm/hr (0-20)
== END ==
LOC: M SHH 18:22 → M LAB REF 18:22
PROVIDERS: ATTEND Internal Medicine Infectious Disease
DX: M86.9 Osteomyelitis, unspecified (principal); Z79.2 Long term (current) use of antibiotics; L97.519 Non-pressure chronic ulcer of other part of right foot with unspecified severity; E11.621 Type 2 diabetes mellitus with foot ulcer

== ENCOUNTER → 2018-12-20 | Outpatient (REF) | payer MEDICARE ==
[2018-12-20 14:52] LABS: BASO # 0.1 10^3/uL (0.0-0.2); EOS # 0.3 10^3/uL (0.0-0.50); EOS % 4.1 % (0.0-3.0); HEMATOCRIT 25.9 % (42.0-52.0); HEMOGLOBIN 8.2 g/dl (13.5-17.5); LYMPH % 16.7 % (24.0-44.0); MEAN CORPUSCULAR HEMOGLOBIN 29.4 pg (27.0-33.0); MEAN CORPUSCULAR HGB CONC 31.7 g/dl (32.0-36.5); MEAN CORPUSCULAR VOLUME 92.8 fl (80.0-96.0); MONO # 0.4 10^3/uL (0.0-0.8); MONO % 6.7 % (0.0-5.0); NEUTROPHILS # 4.3 10^3/uL (1.8-7.7); PLATELET COUNT, AUTOMATED 229 10^3/uL (150-450); RED BLOOD COUNT 2.79 10^6/uL (4.30-6.10); WHITE BLOOD COUNT 6.1 10^3/uL (4.0-10.0)
[2018-12-20 15:24] LABS: ERYTHROCYTE SEDIMENTATION RATE 107 mm/hr (0-20)
[2018-12-20 17:51] LABS: ALBUMIN 2.4 GM/DL (3.2-5.2); BILIRUBIN,TOTAL 0.2 MG/DL (0.2-1.0); C REACTIVE PROTEIN QUANTITATIV 4.92 MG/DL (0.00-0.30); CALCIUM LEVEL 8.3 MG/DL (8.8-10.2); CREATININE FOR GFR 3.41 MG/DL (0.70-1.30); GLOMERULAR FILTRATION RATE 19.7 (>49); POTASSIUM SERUM 3.6 MEQ/L (3.5-5.1); TOTAL PROTEIN 6.2 GM/DL (6.4-8.2)
== END ==
LOC: M SHH 13:45
PROVIDERS: ATTEND Internal Medicine Infectious Disease
DX: M86.9 Osteomyelitis, unspecified (principal); E11.621 Type 2 diabetes mellitus with foot ulcer; L97.519 Non-pressure chronic ulcer of other part of right foot with unspecified severity; Z79.2 Long term (current) use of antibiotics

== ENCOUNTER → 2018-12-27 | Outpatient (REF) | payer MEDICARE ==
[2018-12-27 13:35] LABS: BASO # 0.1 10^3/uL (0.0-0.2); BASO % 0.8 % (0.0-1.0); EOS # 0.4 10^3/uL (0.0-0.50); EOS % 5.8 % (0.0-3.0); HEMATOCRIT 22.7 % (42.0-52.0); HEMOGLOBIN 7.1 g/dl (13.5-17.5); LYMPH # 1.2 10^3/uL (1.5-4.5); MEAN CORPUSCULAR HGB CONC 31.3 g/dl (32.0-36.5); MEAN CORPUSCULAR VOLUME 92.7 fl (80.0-96.0); MONO # 0.6 10^3/uL (0.0-0.8); MONO % 7.7 % (0.0-5.0); NEUTROPHILS # 5.1 10^3/uL (1.8-7.7); NEUTROPHILS % 69.2 % (36.0-66.0); PLATELET COUNT, AUTOMATED 280 10^3/uL (150-450); RED BLOOD COUNT 2.45 10^6/uL (4.30-6.10); WHITE BLOOD COUNT 7.4 10^3/uL (4.0-10.0)
[2018-12-27 13:38] LABS: ALBUMIN 2.4 GM/DL (3.2-5.2); BILIRUBIN,TOTAL 0.2 MG/DL (0.2-1.0); C REACTIVE PROTEIN QUANTITATIV 1.65 MG/DL (0.00-0.30); CALCIUM LEVEL 7.6 MG/DL (8.8-10.2); CREATININE FOR GFR 3.14 MG/DL (0.70-1.30); GLOMERULAR FILTRATION RATE 21.7 (>49); POTASSIUM SERUM 3.5 MEQ/L (3.5-5.1); TOTAL PROTEIN 5.9 GM/DL (6.4-8.2)
[2018-12-27 14:31] LABS: ERYTHROCYTE SEDIMENTATION RATE 108 mm/hr (0-20)
== END ==
LOC: M SHH 09:24
PROVIDERS: ATTEND Internal Medicine Infectious Disease
DX: L97.519 Non-pressure chronic ulcer of other part of right foot with unspecified severity (principal); E11.621 Type 2 diabetes mellitus with foot ulcer; Z79.2 Long term (current) use of antibiotics

== ENCOUNTER → 2019-01-03 | Outpatient (REF) | payer MEDICARE ==
[2019-01-03 17:51] LABS: ALBUMIN 2.7 GM/DL (3.2-5.2); BILIRUBIN,TOTAL 0.2 MG/DL (0.2-1.0); C REACTIVE PROTEIN QUANTITATIV 1.85 MG/DL (0.00-0.30); CALCIUM LEVEL 8.5 MG/DL (8.8-10.2); CREATININE FOR GFR 2.91 MG/DL (0.70-1.30); GLOMERULAR FILTRATION RATE 23.7 (>49); POTASSIUM SERUM 3.9 MEQ/L (3.5-5.1); TOTAL PROTEIN 6.3 GM/DL (6.4-8.2)
[2019-01-03 18:43] LABS: BASO # 0.1 10^3/uL (0.0-0.2); BASO % 0.7 % (0.0-1.0); EOS # 0.3 10^3/uL (0.0-0.50); EOS % 4.1 % (0.0-3.0); HEMATOCRIT 24.5 % (42.0-52.0); HEMOGLOBIN 7.4 g/dl (13.5-17.5); LYMPH # 1.1 10^3/uL (1.5-4.5); LYMPH % 15.8 % (24.0-44.0); MEAN CORPUSCULAR HEMOGLOBIN 27.8 pg (27.0-33.0); MEAN CORPUSCULAR HGB CONC 30.2 g/dl (32.0-36.5); MEAN CORPUSCULAR VOLUME 92.1 fl (80.0-96.0); MONO # 0.5 10^3/uL (0.0-0.8); MONO % 7.3 % (0.0-5.0); NEUTROPHILS # 4.9 10^3/uL (1.8-7.7); NEUTROPHILS % 71.7 % (36.0-66.0); PLATELET COUNT, AUTOMATED 252 10^3/uL (150-450); RED BLOOD COUNT 2.66 10^6/uL (4.30-6.10); WHITE BLOOD COUNT 6.9 10^3/uL (4.0-10.0)
[2019-01-03 20:55] LABS: ERYTHROCYTE SEDIMENTATION RATE 87 mm/hr (0-20)
== END ==
LOC: M SHH 17:25
PROVIDERS: ATTEND Internal Medicine Infectious Disease
DX: M86.9 Osteomyelitis, unspecified (principal); E11.621 Type 2 diabetes mellitus with foot ulcer; Z79.2 Long term (current) use of antibiotics

== ENCOUNTER → 2019-01-10 | Outpatient (REF) | payer MEDICARE ==
[2019-01-10 13:30] LABS: ALBUMIN 2.7 GM/DL (3.2-5.2); BILIRUBIN,DIRECT 0.1 MG/DL (0.0-0.2); BILIRUBIN,TOTAL 0.2 MG/DL (0.2-1.0); C REACTIVE PROTEIN QUANTITATIV 3.91 MG/DL (0.00-0.30); PERCENT SATURATION 17.2 % (19.7-50.0); TOTAL PROTEIN 6.5 GM/DL (6.4-8.2)
[2019-01-10 13:45] LABS: FOLATE 9.2 NG/ML
== END ==
LOC: M LAB REF 12:50
PROVIDERS: ATTEND Internal Medicine Nephrology
DX: N18.4 Chronic kidney disease, stage 4 (severe) (principal); M14.69 Charcot's joint, multiple sites; R80.9 Proteinuria, unspecified; D63.1 Anemia in chronic kidney disease

== ENCOUNTER 2019-01-11 13:58 | Outpatient (CLI) | payer MEDICARE ==
[~2019-01-11] VITALS: Ht 175.3 cm; Wt 136.4 kg
[~2019-01-11 13:58] MED LIST changes: +diphenhydrAMINE 25 MG CAP PO SCH
[2019-01-11] MEDS ORDERED: ACETAMINOPHEN 325 MG TAB PO SCH (14:15)
[2019-01-11 14:55] VITALS: BP 136/88
== END 2019-01-11 17:15 | disposition home or self-care (01) ==
LOC: M INFU 13:58
PROVIDERS: ATTEND Internal Medicine Nephrology
DX: N18.9 Chronic kidney disease, unspecified (principal); D63.1 Anemia in chronic kidney disease
CPT/HCPCS: 36430; P9016

== ENCOUNTER → 2019-01-17 | Outpatient (REF) | payer MEDICARE ==
[~2019-01-17] MED LIST changes: -diphenhydrAMINE 25 MG CAP PO SCH
[2019-01-17 17:07] LABS: ALBUMIN 2.9 GM/DL (3.2-5.2); BILIRUBIN,TOTAL 0.2 MG/DL (0.2-1.0); C REACTIVE PROTEIN QUANTITATIV 0.79 MG/DL (0.00-0.30); CALCIUM LEVEL 8.6 MG/DL (8.8-10.2); CREATININE FOR GFR 3.44 MG/DL (0.70-1.30); GLOMERULAR FILTRATION RATE 19.5 (>49); POTASSIUM SERUM 4.1 MEQ/L (3.5-5.1); TOTAL PROTEIN 6.7 GM/DL (6.4-8.2)
[2019-01-17 17:24] LABS: BASO # 0.1 10^3/uL (0.0-0.2); BASO % 0.9 % (0.0-1.0); EOS # 0.5 10^3/uL (0.0-0.50); EOS % 5.8 % (0.0-3.0); HEMATOCRIT 30.2 % (42.0-52.0); HEMOGLOBIN 9.2 g/dl (13.5-17.5); LYMPH # 1.2 10^3/uL (1.5-4.5); LYMPH % 15.2 % (24.0-44.0); MEAN CORPUSCULAR HEMOGLOBIN 28.3 pg (27.0-33.0); MEAN CORPUSCULAR HGB CONC 30.5 g/dl (32.0-36.5); MEAN CORPUSCULAR VOLUME 92.9 fl (80.0-96.0); MONO # 0.5 10^3/uL (0.0-0.8); MONO % 6.4 % (0.0-5.0); NEUTROPHILS # 5.6 10^3/uL (1.8-7.7); NEUTROPHILS % 70.8 % (36.0-66.0); PLATELET COUNT, AUTOMATED 296 10^3/uL (150-450); RED BLOOD COUNT 3.25 10^6/uL (4.30-6.10); WHITE BLOOD COUNT 7.9 10^3/uL (4.0-10.0)
[2019-01-17 19:44] LABS: ERYTHROCYTE SEDIMENTATION RATE 84 mm/hr (0-20)
== END ==
LOC: M SHH 16:10
PROVIDERS: ATTEND Internal Medicine Infectious Disease
DX: Z51.81 Encounter for therapeutic drug level monitoring (principal); Z79.2 Long term (current) use of antibiotics; M86.9 Osteomyelitis, unspecified; E11.621 Type 2 diabetes mellitus with foot ulcer; L97.519 Non-pressure chronic ulcer of other part of right foot with unspecified severity; E11.69 Type 2 diabetes mellitus with other specified complication; E11.610 Type 2 diabetes mellitus with diabetic neuropathic arthropathy; M79.671 Pain in right foot

== ENCOUNTER 2019-01-27 12:15 | Inpatient (IN) | payer MEDICARE ==
[~2019-01-27] VITALS: Ht 175.3 cm; Wt 135.4 kg
[2019-01-27] MEDS ORDERED: MAALOX 30 ML SUSP *UDC PO PRN (13:00)
[2019-01-27] MEDS ORDERED: ACETAMINOPHEN TAB 650MG DOSE (2X325MG) PO PRN (13:00)
[2019-01-27 13:45] VITALS: BP 174/82
[2019-01-27] MEDS ORDERED: GLUCAGON FOR INJ 1 MG VIAL (J1610) SC PRN (13:45)
[2019-01-27] MEDS ORDERED: oxyCODONE 5MG TAB PO PRN (13:45)
[2019-01-27] MEDS ORDERED: DEXTROSE 50% 50 ML SYRINGE IV PRN (13:45)
[2019-01-27] MEDS ORDERED: GLUCOSE 4 GM CHEW TABLET PO PRN (13:45)
[2019-01-27] MEDS ORDERED: BAYE325T13 PO (14:40)
[2019-01-27] MEDS ORDERED: CALC600T5 PO (14:40)
[2019-01-27] MEDS ORDERED: INSUHUMDS SC (14:40)
[2019-01-27] MEDS ORDERED: APAP325T4 PO (14:40)
[2019-01-27] MEDS ORDERED: SPIR-10 PO (14:40)
[2019-01-27] MEDS ORDERED: CARV6.25 PO (14:40)
[2019-01-27] MEDS ORDERED: TORS5TAB2 PO (14:40)
[2019-01-27] MEDS ORDERED: C 50TAB PO (14:44)
[2019-01-27 15:26] VITALS: BP 156/68
[2019-01-27] MEDS: HumaLOG INSULIN (NovoLOG) PER UNIT SC SCH ×2 (17:37→20:34)
[2019-01-27] MEDS: ACETAMINOPHEN 500 MG TAB PO SCH ×2 (17:37→20:33)
[2019-01-27] MEDS: LEVEMIR (INSULIN DETEMIR) 1 UNITS/0.01ML SC SCH (20:32)
[2019-01-27] MEDS: TORSEMIDE 5MG TABLET PO SCH (20:32)
[2019-01-27] MEDS: DOCUSATE SODIUM 100 MG CAP PO SCH (20:33)
[2019-01-27] MEDS: cloNIDine 0.1 MG TAB PO SCH (20:33)
[2019-01-27] MEDS: ATORVASTATIN 20 MG TAB PO SCH (20:33)
[2019-01-27] MEDS: CARVedilol 6.25 MG TAB PO SCH (20:33)
[2019-01-27] MEDS: SENNA 8.6 MG TAB (SENOKOT) PO SCH (20:34)
[2019-01-27 22:00] VITALS: BP 167/77
[2019-01-28 06:00] VITALS: BP 168/81
[2019-01-28 07:01] LABS: BASO # 0.1 10^3/uL (0.0-0.2); BASO % 0.8 % (0.0-1.0); EOS # 0.5 10^3/uL (0.0-0.50); EOS % 7.1 % (0.0-3.0); HEMATOCRIT 26.9 % (42.0-52.0); HEMOGLOBIN 8.4 g/dl (13.5-17.5); LYMPH # 1.2 10^3/uL (1.5-4.5); LYMPH % 17.6 % (24.0-44.0); MEAN CORPUSCULAR HEMOGLOBIN 28.3 pg (27.0-33.0); MEAN CORPUSCULAR HGB CONC 31.2 g/dl (32.0-36.5); MEAN CORPUSCULAR VOLUME 90.6 fl (80.0-96.0); MONO # 0.5 10^3/uL (0.0-0.8); MONO % 7.9 % (0.0-5.0); NEUTROPHILS # 4.4 10^3/uL (1.8-7.7); NEUTROPHILS % 66.1 % (36.0-66.0); PLATELET COUNT, AUTOMATED 300 10^3/uL (150-450); RED BLOOD COUNT 2.97 10^6/uL (4.30-6.10); WHITE BLOOD COUNT 6.6 10^3/uL (4.0-10.0)
[2019-01-28 07:29] LABS: ALBUMIN 2.3 GM/DL (3.2-5.2); BILIRUBIN,TOTAL 0.2 MG/DL (0.2-1.0); CALCIUM LEVEL 9.2 MG/DL (8.8-10.2); CREATININE FOR GFR 2.97 MG/DL (0.70-1.30); GLOMERULAR FILTRATION RATE 23.1 (>49); POTASSIUM SERUM 4.4 MEQ/L (3.5-5.1); TOTAL PROTEIN 6.9 GM/DL (6.4-8.2)
[2019-01-28] MEDS: FERROUS GLUCONATE 324 MG TAB PO SCH (08:32)
[2019-01-28] MEDS: CALCIUM CARBONATE 500 MG CHEW U/D PO SCH (08:32)
[2019-01-28] MEDS: CARVedilol 6.25 MG TAB PO SCH ×2 (08:32→22:16)
[2019-01-28] MEDS: ASPIRIN 325 MG TAB PO SCH (08:32)
[2019-01-28] MEDS: HumaLOG INSULIN (NovoLOG) PER UNIT SC SCH ×4 (08:33→21:00)
[2019-01-28] MEDS: LISINOPRIL 40 MG TAB PO SCH (08:34)
[2019-01-28] MEDS: SPIRONOLACTONE 25 MG TAB PO SCH (08:34)
[2019-01-28] MEDS: cloNIDine 0.1 MG TAB PO SCH ×2 (08:34→22:16)
[2019-01-28] MEDS: ACETAMINOPHEN 500 MG TAB PO SCH ×3 (08:34→22:17)
[2019-01-28] MEDS: ALLOPURINOL 100 MG TAB PO SCH (08:34)
[2019-01-28] MEDS ORDERED: LEVEMIR (INSULIN DETEMIR) 1 UNITS/0.01ML SC SCH (09:00)
[2019-01-28] MEDS: DOCUSATE SODIUM 100 MG CAP PO SCH ×2 (09:00→22:15)
--- NOTE | 2019-01-28 10:22 | CR.PDOC ---
General Date of Consultation: Jan 28, 2019 Referring Provider: A Attending Physician: JERICA SANDERS MD Consultation REASON FOR CONSULTATION/CHIEF COMPLAINT: Medical management HISTORY OF PRESENT ILLNESS: Patient is a 58-year-old male, past medical history significant for type II. Diabetes mellitus, chronic kidney disease, status post fistula placement, obesity, complete heart block status post pacemaker placement, Charcot foot, who presented to [place] for evaluation and management of right ankle nonhealing ulcer. After multiple right ankle debridement. Patient states they decided to proceed with a right BKA. 3 years ago, patient had left BKA for same reason. -Complications of charcot foot disease. On assessment, he denies any chest pain, shortness of breath, dysuria, chills, fever, nausea, vomiting. ALLERGIES: Please see below. HOME MEDICATIONS: Please see below. PAST MEDICAL HISTORY: Hypertension Chronic kidney disease Type 2 diabetes mellitus Obesity Charcoal foot. Complete heart block PAST SURGICAL HISTORY: Permanent pacemaker placement. Amputation, bilateral feet. Bilateral BKA Fistula placement FAMILY HISTORY: Mother: Lung cancer SOCIAL HISTORY: Denies tobacco, alcohol, polysubstance abuse. REVIEW OF SYSTEMS:A 10 point pertinent review of systems was completed, negative except as stated in the history of presenting illness. PHYSICAL EXAMINATION: VITAL SIGNS: Please see below. GENERAL: NAD SKIN : Warm, pressure dressing to right BKA stump HEENT: Atraumatic, normocephalic, PERRL, moist mucous membrane CARDIOVASCULAR: Regular rate and rhythm, S1S2, no JVD, RESP: CTAB, no accessory muscle use noted ABDOMEN: BS+ non distended non tender MS: Bilateral BKA NEURO: Alert and oriented x 3, CN2-12 grossly intact PSYCH: no anxiety or agitation, appropriate mood and affect. LABORATORY DATA: Please see below. ASSESSMENT/PLAN: Charcot foot -With complicated wound healing and subsequent recent right BKA -Rehabilitation by primary team Type 2 diabetes mellitus -Calorie controlled diet -Finger stick checks prior to meals and at bedtime -Coverage with insulin per sliding scale protocol Hypertension -Currently controlled, stable -Continue lisinopril Chronic kidney disease stage IV -Status post fistula placement for future hemodialysis -Outpatient follow-up with nephrology -Avoid hypotension -Avoid nephrotoxic medications Vital Signs/I&O Vital Signs Date Time Temp Pulse Resp B/P (MAP) Pulse Ox O2 Delivery O2 Flow Rate FiO2 01/28/19 08:34 168/81 01/28/19 08:32 71 01/28/19 06:00 97.8 18 98 I&O- Last 24 Hours up to 6 AM 01/28/19 06:00 Intake Total 1160 ml Output Total 1580 ml Balance -420 ml Laboratory Data Labs 24H Laboratory Tests 2 01/27/19 16:46: Bedside Glucose (Misc Panel) 106 01/27/19 20:06: Bedside Glucose (Misc Panel) 211H 01/28/19 06:31: Bedside Glucose (Misc Panel) 116H 01/28/19 06:44: Immature Granulocyte % (Auto) 0.5, White Blood Count 6.6, Red Blood Count 2.97L, Hemoglobin 8.4L, Hematocrit 26.9L, Mean Corpuscular Volume 90.6, Mean Corpuscular Hemoglobin 28.3, Mean Corpuscular Hemoglobin Concent 31.2L, Red Cell Distribution Width 14.9H, Platelet Count 300, Neutrophils (%) (Auto) 66.1H, Lymphocytes (%) (Auto) 17.6L, Monocytes (%) (Auto) 7.9H, Eosinophils (%) (Auto) 7.1H, Basophils (%) (Auto) 0.8, Neutrophils # (Auto) 4.4, Lymphocytes # (Auto) 1.2L, Monocytes # (Auto) 0.5, Eosinophils # (Auto) 0.5, Basophils # (Auto) 0.1, Nucleated Red Blood Cells % (auto) 0.0, Anion Gap 6L, Glomerular Filtration Rate 23.1L, Blood Urea Nitrogen 33H, Creatinine 2.97H, Sodium Level 140, Potassium Level 4.4, Chloride Level 111H, Carbon Dioxide Level 23, Calcium Level 9.2, Aspartate Amino Transf (AST/SGOT) 6L, Alanine Aminotransferase (ALT/SGPT) 6L, Alkaline Phosphatase 78, Total Bilirubin 0.2, Total Protein 6.9, Albumin 2.3L, Albumin/Globulin Ratio 0.50L CBC/BMP Laboratory Tests 01/28/19 06:44 Red Blood Count 2.97 L, Mean Corpuscular Volume 90.6, Mean Corpuscular Hemoglobin 28.3, Mean Corpuscular Hemoglobin Concent 31.2 L, Red Cell Distribution Width 14.9 H, Neutrophils (%) (Auto) 66.1 H, Lymphocytes (%) (Auto) 17.6 L, Monocytes (%) (Auto) 7.9 H, Eosinophils (%) (Auto) 7.1 H, Basophils (%) (Auto) 0.8, Neutrophils # (Auto) 4.4, Lymphocytes # (Auto) 1.2 L, Monocytes # (Auto) 0.5, Eosinophils # (Auto) 0.5, Basophils # (Auto) 0.1, Calcium Level 9.2, Aspartate Amino Transf (AST/SGOT) 6 L, Alanine Aminotransferase (ALT/SGPT) 6 L, Alkaline Phosphatase 78, Total Bilirubin 0.2, Total Protein 6.9, Albumin 2.3 L Allergies Coded Allergies: No Known Allergies (Unverified , 12/11/16) Home Medications Scheduled Allopurinol (Allopurinol) 100 Mg Tab, 100 MG PO DAILY, (Reported) Ascorbic Acid (Vitamin C) 500 Mg Tablet, 500 MG PO BIDWM, (Reported) Aspirin (Aspirin) 325 Mg Tablet, 325 MG PO DAILY, (Reported) TO TAKE 325MG FOR 4 WEEKS POST OP, THEN RESUME 81MG HOME DOSE. Atorvastatin Calcium (Atorvastatin Calcium) 40 Mg Tab, 40 MG PO QHS, (Reported) Calcium Carbonate (Calcium) 600 Mg Tablet, 600 MG PO 2XW, (Reported) MON AND FRI Carvedilol (Carvedilol) 6.25 Mg Tablet, 6.25 MG PO BID, (Reported) Clonidine HCl (Clonidine HCl) 0.1 Mg Tab, 0.1 MG PO BID, (Reported) Insulin Glargine (Lantus) 1 Units/0.01 Ml Susp, 40 UNITS SC BID, (Reported) Insulin Human Lispro (Humalog) 100 Unit/1 Ml Vial, 1 DOSE SC AC, (Reported) PER SLIDING SCALE Iron Polysaccharide Complex (Poly-Iron) 150 Mg Cap, 150 MG PO QHS, (Reported) Lisinopril (Lisinopril) 40 Mg Tab, 40 MG PO DAILY, (Reported) Spironolactone (Spironolactone) 25 Mg Tablet, 25 MG PO DAILY, (Reported) Torsemide (Torsemide) 5 Mg Tablet, 5 MG PO QPM, (Reported) CHANGED AT [place] FROM 40MG BID Scheduled PRN Acetaminophen (Acetaminophen) 325 Mg Tablet, 650 MG PO Q6H PRN for PAIN / FEVER, (Reported) OTUBELU,ADAORA C. CLASSIFIER TENDER Jan 28, 2019 10:22
--- NOTE | 2019-01-28 12:44 | HPEPDOC ---
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 He had pre-op cardiac clearance per Dr. Hinojosa and underwent a right BKA on 01/21/19 without complication with procedure performed by Dr. Molina. He was placed on aspirin for DVT prophylaxis and treated with empiric Zosyn based off of wound cultures positive for MSSA. He had a drop in his hemoglobin requiring blood transfusions and he was taken off of antibiotics once his bone pathology came back negative. A plaster-knee immobilizer was placed on his right leg. He was evaluated by therapy and found to deficits in mobility and ADLs below his prior level of function. He was deemed medically appropriate for discharge to ARU on 01/28/19. REVIEW OF SYSTEMS: The following is a completed review of systems and has been reviewed. Review of systems otherwise unremarkable. PAIN: Patient self reports no pain EYES: no recent vision change EARS, NOSE, & THROAT: denies dysphagia, rhinorrhea, or throat pain CARDIOVASCULAR: [denies chest pain or palpitations PULMONARY: Negative. Denies shortness of breath GASTROINTESTINAL: denies constipation/diarrhea GENITOURINARY: denies dysuria/incontinence MUSCULOSKELETAL: bilateral BKA NEUROLOGICAL: peripheral neuropathy HEMATOLOGICAL: +anemia SKIN: right BKA incision PSYCHIATRIC: Unremarkable All other review of systems found to be negative. PAST MEDICAL HISTORY: as per HPI PAST SURGICAL HISTORY: per HPI ALLERGIES: Please see below. MEDICATIONS: Please see below. FAMILY HISTORY: non-contributory SOCIAL HISTORY: lives with , +chewing tobacco, rarely ETOH, no drugs DIET: consistent carb PHYSICAL EXAMINATION: VITAL SIGNS: Please see below. GENERAL: Pleasant and cooperative. No acute distress. HEENT: PERRL. Extraocular movements intact. Clear conjunctiva CARDIOVASCULAR: Regular rate and rhythm. No murmurs, rubs, or gallops LUNGS: Clear to auscultation bilaterally. No wheezes. No rhonchi ABDOMEN: Soft, nontender, nondistended. Positive bowel sounds. Normal active bowel sounds NEUROLOGICAL: Alert and oriented times three. Cranial nerves II through XII grossly intact. Sensation grossly intact in UE, diminished distally bilat LE EXTREMITIES: 5\5 strength bilateral upper extremities. 5\5 strength right lower extremity. 5/5 strength in left lower extremity. SKIN: left residual limb no skin breakdown right residual limb- sutures mostly c/d//i with scan sanguinous drainage from one suture area, no induration IMAGING: Imaging documentation personally reviewed by record FUNCTIONAL STATUS: Premorbid: Mod-Independent with all activities of daily life as well as mobility with prosthesis On Admission: Requiring mid-mod assistance for functional transfers, min assist for bed mobility, and assistance with ambulation with RW GOALS: Independent from a wheelchair level for mobility and ADLs including bathing, dressing, toileting, grooming. Mod-I ambulation house hold distances with RW with left LE prosthesis. Medical optimization, limb-care training, assess for DMEs, caregiver training. ASSESSMENT:58-year-old M with past medical history of left BKA with prosthesis who presents status post right BKA. PLAN: 1. rehab: PT, OT -NWB to RLE -strengthen LLE, stretch RLE and maintain knee extension, desensitization therapy, strengthen bilat UE 2. Ortho: pmh left BKA, s/p right BKA 01/21/19 NWB, acewrap-will need follow-up with surgeon 3. CArdio: pmh HTN, HLD, pacemaker for sick sinus syndrome- c/u home meds, medicine consulted 4. Resp: encourage incentive spirometry 5. Endo: pmh DM continue insulin, adjust prn 6. Renal: pmh CKD4 will monitor creatinine 7. : monitor PVRs 8. DVT ppx: ASA 325 mg 9. GI ppx: protonix 10. Pain: tylenol 11.Dispo: TBD POST ADMISSION PHYSICIAN EVALUATION: Medical and functional status: Description of medical status, medical assessment: As above. Rehabilitation diagnosis and current and prior cold morbid medical conditions as above. Risk of complications and plans to mitigate them as above. Description of functional status current status is as above. Prior status as above. Status compared to preadmission: There are no clinically significant differences between the patient's current status and the information described on the preadmission screening document. Treatment plan anticipated: Treatment plan is as described above. Required disciplines including physical therapy, occupational therapy, others as noted above. Intensity of services: 3 hours a day, 6 days a week. Special considerations: There are no specific special or safety considerations that would likely preclude immediate implementation of an intensive rehabilitation program or subsequently influence the plan of care ATTESTATION: Considering all the information above, it is my best judgment that this patient requires intensive rehabilitation therapy as described above and an inpatient hospital environment due to the complexity of nursing, medical, and rehabilitation needs required by the patient. Furthermore, this patient can reasonably be expected to participate in an benefit from an inpatient rehab ilitation stay with an interdisciplinary team approach to the delivery of rehabilitation care under the direction and supervision of rehabilitation physician. PROGNOSIS: Excellent. ESTIMATED LENGTH OF STAY:8-10 days. PROJECTED DISCHARGE DESTINATION: Home with family support and any durable medic al equipment required to increase functional safety and mobility. TIME SPENT COUNSELING AND COORDINATING INITIAL CARE: Greater than 70 minutes. Vital Signs Vital Sign - Last 24 Hours 01/27/19 01/27/19 01/27/19 01/27/19 13:45 15:26 20:33 20:33 Temp 97.9 Pulse 79 67 Resp 18 B/P (MAP) 174/82 (112) 156/68 (97) 167/77 167/77 Pulse Ox 97 01/27/19 01/28/19 01/28/19 01/28/19 22:00 06:00 08:32 08:34 Temp 98.2 97.8 Pulse 67 71 71 Resp 17 18 B/P (MAP) 167/77 (107) 168/81 (110) 168/81 168/81 Pulse Ox 94 98 Laboratory Data CBC/BMP Laboratory Tests 01/28/19 06:44 Red Blood Count 2.97 L, Mean Corpuscular Volume 90.6, Mean Corpuscular Hemoglobin 28.3, Mean Corpuscular Hemoglobin Concent 31.2 L, Red Cell Distribution Width 14.9 H, Neutrophils (%) (Auto) 66.1 H, Lymphocytes (%) (Auto) 17.6 L, Monocytes (%) (Auto) 7.9 H, Eosinophils (%) (Auto) 7.1 H, Basophils (%) (Auto) 0.8, Neutrophils # (Auto) 4.4, Lymphocytes # (Auto) 1.2 L, Monocytes # (Auto) 0.5, Eosinophils # (Auto) 0.5, Basophils # (Auto) 0.1, Calcium Level 9.2, Aspartate Amino Transf (AST/SGOT) 6 L, Alanine Aminotransferase (ALT/SGPT) 6 L, Alkaline Phosphatase 78, Total Bilirubin 0.2, Total Protein 6.9, Albumin 2.3 L Labs 24H Laboratory Tests 2 01/27/19 16:46: Bedside Glucose (Misc Panel) 106 01/27/19 20:06: Bedside Glucose (Misc Panel) 211H 01/28/19 06:31: Bedside Glucose (Misc Panel) 116H 01/28/19 06:44: Immature Granulocyte % (Auto) 0.5, White Blood Count 6.6, Red Blood Count 2.97L, Hemoglobin 8.4L, Hematocrit 26.9L, Mean Corpuscular Volume 90.6, Mean Corpuscular Hemoglobin 28.3, Mean Corpuscular Hemoglobin Concent 31.2L, Red Cell Distribution Width 14.9H, Platelet Count 300, Neutrophils (%) (Auto) 66.1H, Lymphocytes (%) (Auto) 17.6L, Monocytes (%) (Auto) 7.9H, Eosinophils (%) (Auto) 7.1H, Basophils (%) (Auto) 0.8, Neutrophils # (Auto) 4.4, Lymphocytes # (Auto) 1.2L, Monocytes # (Auto) 0.5, Eosinophils # (Auto) 0.5, Basophils # (Auto) 0.1, Nucleated Red Blood Cells % (auto) 0.0, Anion Gap 6L, Glomerular Filtration Rate 23.1L, Blood Urea Nitrogen 33H, Creatinine 2.97H, Sodium Level 140, Potassium Level 4.4, Chloride Level 111H, Carbon Dioxide Level 23, Calcium Level 9.2, Aspartate Amino Transf (AST/SGOT) 6L, Alanine Aminotransferase (ALT/SGPT) 6L, Alkaline Phosphatase 78, Total Bilirubin 0.2, Total Protein 6.9, Albumin 2.3L, Albumin/Globulin Ratio 0.50L 01/28/19 11:35: Bedside Glucose (Misc Panel) 115 FSBS Laboratory Tests Test 01/27/19 16:46 01/27/19 20:06 01/28/19 06:31 01/28/19 11:35 Range/Units Bedside Glucose (Misc Panel) 106 211 116 115 80-115 MG/DL Home Medications Scheduled Allopurinol (Allopurinol) 100 Mg Tab, 100 MG PO DAILY, (Reported) Ascorbic Acid (Vitamin C) 500 Mg Tablet, 500 MG PO BIDWM, (Reported) Aspirin (Aspirin) 325 Mg Tablet, 325 MG PO DAILY, (Reported) TO TAKE 325MG FOR 4 WEEKS POST OP, THEN RESUME 81MG HOME DOSE. Atorvastatin Calcium (Atorvastatin Calcium) 40 Mg Tab, 40 MG PO QHS, (Reported) Calcium Carbonate (Calcium) 600 Mg Tablet, 600 MG PO 2XW, (Reported) MON AND FRI Carvedilol (Carvedilol) 6.25 Mg Tablet, 6.25 MG PO BID, (Reported) Clonidine HCl (Clonidine HCl) 0.1 Mg Tab, 0.1 MG PO BID, (Reported) Insulin Glargine (Lantus) 1 Units/0.01 Ml Susp, 40 UNITS SC BID, (Reported) Insulin Human Lispro (Humalog) 100 Unit/1 Ml Vial, 1 DOSE SC AC, (Reported) PER SLIDING SCALE Iron Polysaccharide Complex (Poly-Iron) 150 Mg Cap, 150 MG PO QHS, (Reported) Lisinopril (Lisinopril) 40 Mg Tab, 40 MG PO DAILY, (Reported) Spironolactone (Spironolactone) 25 Mg Tablet, 25 MG PO DAILY, (Reported) Torsemide (Torsemide) 5 Mg Tablet, 5 MG PO QPM, (Reported) CHANGED AT [facility] FROM 40MG BID Scheduled PRN Acetaminophen (Acetaminophen) 325 Mg Tablet, 650 MG PO Q6H PRN for PAIN / FEVER, (Reported) Allergies Coded Allergies: No Known Allergies (Unverified , 12/11/16) A-FIB/CHADSVASC A-FIB History Current/History of A-Fib/PAF?: No MARIO VEGA MD Jan 28, 2019 12:44
[2019-01-28 14:00] VITALS: BP 176/82
[2019-01-28] MEDS: PANTOPRAZOLE 40MG TAB (PROTONIX) PO SCH (14:45)
[2019-01-28 20:00] VITALS: BP 175/75
[2019-01-28 22:06] VITALS: BP 152/76
[2019-01-28] MEDS: ATORVASTATIN 20 MG TAB PO SCH (22:15)
[2019-01-28] MEDS: TORSEMIDE 5MG TABLET PO SCH (22:15)
[2019-01-28] MEDS: SENNA 8.6 MG TAB (SENOKOT) PO SCH (22:15)
[2019-01-28] MEDS: LEVEMIR (INSULIN DETEMIR) 1 UNITS/0.01ML SC SCH (22:18)
[2019-01-29 05:31] VITALS: BP 158/79
[2019-01-29] MEDS: ASPIRIN 325 MG TAB PO SCH (07:59)
[2019-01-29] MEDS: HumaLOG INSULIN (NovoLOG) PER UNIT SC SCH ×4 (07:59→21:00)
[2019-01-29] MEDS: PANTOPRAZOLE 40MG TAB (PROTONIX) PO SCH (07:59)
[2019-01-29] MEDS: FERROUS GLUCONATE 324 MG TAB PO SCH (07:59)
[2019-01-29] MEDS: LISINOPRIL 40 MG TAB PO SCH (08:00)
[2019-01-29] MEDS: cloNIDine 0.1 MG TAB PO SCH ×2 (08:00→22:05)
[2019-01-29] MEDS: ACETAMINOPHEN 500 MG TAB PO SCH ×3 (08:00→22:04)
[2019-01-29] MEDS: SPIRONOLACTONE 25 MG TAB PO SCH (08:00)
[2019-01-29] MEDS: ALLOPURINOL 100 MG TAB PO SCH (08:00)
[2019-01-29] MEDS: DOCUSATE SODIUM 100 MG CAP PO SCH ×2 (08:01→22:04)
[2019-01-29] MEDS: CARVedilol 6.25 MG TAB PO SCH ×2 (08:01→22:05)
--- NOTE | 2019-01-29 10:22 | IPNPDOC ---
Subjective Date Seen The patient was seen on 01/29/19. Subjective Chief Complaint/HPI Patient comfortable offers no new complaints at the present time. Sitting in wheelchair General: Denies: ROS Unobtainable, Chills, Night Sweats, Fatigue, Malaise, Normal Appetite, Other Symptoms Constitutional: Denies: Chills, Fever, Malaise, Night Sweats, Weakness, Fatigue, Weight Loss, Lethargy, Other Skin: Denies: Rash, Lesions, Jaundice, Bruising, Itching, Dry, Breakdown, Nail Changes, Other Pulmonary: Denies: Dyspnea, Cough, Pleuritic Chest Pain, Other Symptoms Cardiovascular: Denies: Chest Pain, Palpitations, Orthopnea, Paroxysmal Noc. Dyspnea, Edema, Lt Headedness, Other Symptoms Gastrointestinal: Denies: Nausea, Vomiting, Abdominal Pain, Diarrhea, Constipation, Melena, Hematochezia, Other Symptoms Neurological: Denies: Weakness, Numbness, Incoordination, Change in speech, Confusion, Seizures, Other Symptoms Objective Physical Examination General Exam: Positive: Alert, Cooperative Eye Exam: Positive: PERRLA, Conjunctiva & lids normal ENT Exam: Positive: Atraumatic, Mucous membr. moist/pink Chest Exam: Positive: Clear to auscultation Heart Exam: Positive: Rate Normal, Normal S1, Normal S2 Abdomen Exam: Positive: Normal bowel sounds, Soft Skin Exam: Positive: Nl turgor and temperature Assessment /Plan Problems (1) Right BKA infection Problem Text: Continue present care Physical therapy in progress Patient possibly will be discharged home this coming Thursday , No further medical intervention at this time (2) Hypertension Status: Acute Problem Text: Under well control Plan/VTE VTE Prophylaxis Ordered?: Yes VS, I&O, 24H, [facility] Vital Signs/I&O Vital Signs Date Time Temp Pulse Resp B/P (MAP) Pulse Ox O2 Delivery O2 Flow Rate FiO2 01/29/19 08:01 76 01/29/19 08:00 158/79 01/29/19 05:31 97.5 18 96 I&O- Last 24 Hours up to 6 AM 01/29/19 06:00 Intake Total 1080 ml Output Total 700 ml Balance 380 ml Laboratory Data 24H LABS Laboratory Tests 2 01/28/19 11:35: Bedside Glucose (Misc Panel) 115 01/28/19 16:14: Bedside Glucose (Misc Panel) 110 01/28/19 19:59: Bedside Glucose (Misc Panel) 123H 01/29/19 06:05: Bedside Glucose (Misc Panel) 140H Microbiology Microbiology 01/29/19 Stool Occult Blood (ROSMERY) - Final, Complete JERICA SANDERS MD Jan 29, 2019 10:22
[2019-01-29 20:00] VITALS: BP 158/74
[2019-01-29] MEDS: ATORVASTATIN 20 MG TAB PO SCH (22:04)
[2019-01-29] MEDS: SENNA 8.6 MG TAB (SENOKOT) PO SCH (22:05)
[2019-01-29] MEDS: TORSEMIDE 5MG TABLET PO SCH (22:05)
[2019-01-29] MEDS: LEVEMIR (INSULIN DETEMIR) 1 UNITS/0.01ML SC SCH (22:07)
[2019-01-30 06:00] VITALS: BP 160/88
[2019-01-30] MEDS: FERROUS GLUCONATE 324 MG TAB PO SCH (09:24)
[2019-01-30] MEDS: SPIRONOLACTONE 25 MG TAB PO SCH (09:24)
[2019-01-30] MEDS: LISINOPRIL 40 MG TAB PO SCH (09:24)
[2019-01-30] MEDS: ALLOPURINOL 100 MG TAB PO SCH (09:24)
[2019-01-30] MEDS: ASPIRIN 325 MG TAB PO SCH (09:24)
[2019-01-30] MEDS: PANTOPRAZOLE 40MG TAB (PROTONIX) PO SCH (09:24)
[2019-01-30] MEDS: DOCUSATE SODIUM 100 MG CAP PO SCH ×2 (09:24→20:33)
[2019-01-30] MEDS: CARVedilol 6.25 MG TAB PO SCH ×2 (09:25→20:34)
[2019-01-30] MEDS: cloNIDine 0.1 MG TAB PO SCH ×2 (09:25→20:34)
[2019-01-30] MEDS: ACETAMINOPHEN 500 MG TAB PO SCH ×3 (09:25→20:33)
[2019-01-30] MEDS: HumaLOG INSULIN (NovoLOG) PER UNIT SC SCH ×4 (09:26→19:54)
[2019-01-30 14:15] VITALS: BP 168/86
[2019-01-30 20:00] VITALS: BP 150/82
[2019-01-30] MEDS: TORSEMIDE 5MG TABLET PO SCH (20:33)
[2019-01-30] MEDS: ATORVASTATIN 20 MG TAB PO SCH (20:33)
[2019-01-30] MEDS: SENNA 8.6 MG TAB (SENOKOT) PO SCH (20:33)
[2019-01-30] MEDS: LEVEMIR (INSULIN DETEMIR) 1 UNITS/0.01ML SC SCH (20:34)
[2019-01-31 06:00] VITALS: BP 148/82
[2019-01-31 06:30] LABS: BASO # 0.1 10^3/uL (0.0-0.2); EOS # 0.5 10^3/uL (0.0-0.50); EOS % 6.7 % (0.0-3.0); HEMATOCRIT 26.9 % (42.0-52.0); HEMOGLOBIN 8.5 g/dl (13.5-17.5); LYMPH # 1.3 10^3/uL (1.5-4.5); LYMPH % 18.1 % (24.0-44.0); MEAN CORPUSCULAR HGB CONC 31.6 g/dl (32.0-36.5); MEAN CORPUSCULAR VOLUME 88.5 fl (80.0-96.0); MONO # 0.5 10^3/uL (0.0-0.8); MONO % 6.8 % (0.0-5.0); NEUTROPHILS # 4.8 10^3/uL (1.8-7.7); NEUTROPHILS % 66.7 % (36.0-66.0); PLATELET COUNT, AUTOMATED 323 10^3/uL (150-450); RED BLOOD COUNT 3.04 10^6/uL (4.30-6.10); WHITE BLOOD COUNT 7.2 10^3/uL (4.0-10.0)
[2019-01-31 07:00] LABS: CALCIUM LEVEL 9.1 MG/DL (8.8-10.2); CREATININE FOR GFR 2.89 MG/DL (0.70-1.30); GLOMERULAR FILTRATION RATE 23.8 (>49); POTASSIUM SERUM 4.5 MEQ/L (3.5-5.1)
[2019-01-31] MEDS: ALLOPURINOL 100 MG TAB PO SCH (08:43)
[2019-01-31] MEDS: cloNIDine 0.1 MG TAB PO SCH ×2 (08:43→21:46)
[2019-01-31] MEDS: ASPIRIN 325 MG TAB PO SCH (08:43)
[2019-01-31] MEDS: CARVedilol 6.25 MG TAB PO SCH ×2 (08:43→21:46)
[2019-01-31] MEDS: SPIRONOLACTONE 25 MG TAB PO SCH (08:43)
[2019-01-31] MEDS: FERROUS GLUCONATE 324 MG TAB PO SCH (08:43)
[2019-01-31] MEDS: LISINOPRIL 40 MG TAB PO SCH (08:44)
[2019-01-31] MEDS: CALCIUM CARBONATE 500 MG CHEW U/D PO SCH (08:44)
[2019-01-31] MEDS: ACETAMINOPHEN 500 MG TAB PO SCH ×3 (08:44→21:46)
[2019-01-31] MEDS: DOCUSATE SODIUM 100 MG CAP PO SCH ×2 (08:44→21:00)
[2019-01-31] MEDS: PANTOPRAZOLE 40MG TAB (PROTONIX) PO SCH (08:44)
[2019-01-31] MEDS: HumaLOG INSULIN (NovoLOG) PER UNIT SC SCH ×4 (08:45→21:00)
--- NOTE | 2019-01-31 10:22 | IPNPDOC ---
PM&R Progress Note DATE OF SERVICE: Jan 28, 2019 Account Financial Manager Progress Note Subjective: Patient reporting his knee extension cast is falling off so it was removed, re- bandaged, and criselda-wrapped. REVIEW OF SYSTEMS: The following is a completed review of systems and has been reviewed. Review of systems otherwise unremarkable. PAIN: Patient self reports no pain EYES: no recent vision change EARS, NOSE, & THROAT: denies dysphagia, rhinorrhea, or throat pain CARDIOVASCULAR: denies chest pain or palpitations PULMONARY: Negative. Denies shortness of breath GASTROINTESTINAL: denies constipation/diarrhea GENITOURINARY: denies dysuria/incontinence MUSCULOSKELETAL: bilateral BKA NEUROLOGICAL: peripheral neuropathy HEMATOLOGICAL: +anemia SKIN: right BKA incision PSYCHIATRIC: Unremarkable All other review of systems found to be negative. PHYSICAL EXAMINATION: VITAL SIGNS: Please see below. GENERAL: Pleasant and cooperative. No acute distress. HEENT: PERRL. Extraocular movements intact. Clear conjunctiva CARDIOVASCULAR: Regular rate and rhythm. No murmurs, rubs, or gallops LUNGS: Clear to auscultation bilaterally. No wheezes. No rhonchi ABDOMEN: Soft, nontender, nondistended. Positive bowel sounds. Normal active bowel sounds NEUROLOGICAL: Alert and oriented times three. Cranial nerves II through XII grossly intact. Sensation grossly intact in UE, diminished distally bilat LE EXTREMITIES: 5\5 strength bilateral upper extremities. 5\5 strength right lower extremity. 5/5 strength in left lower extremity. SKIN: left residual limb no skin breakdown right residual limb- sutures mostly c/d//i with scant sanguinous drainage from one suture area, no induration ASSESSMENT:58-year-old M with past medical history of left BKA with prosthesis who presents status post right BKA. PLAN: 1. rehab: PT, OT, propelling himself in wheelchair well -NWB to RLE -strengthen LLE, stretch RLE and maintain knee extension, desensitization th erapy, strengthen bilat UE 2. Ortho: pmh left BKA, s/p right BKA 01/21/19 NWB, acewrap-will need follow-up with surgeon 3. CArdio: pmh HTN, HLD, pacemaker for sick sinus syndrome- c/u home meds, medic ine consulted 4. Resp: encourage incentive spirometry 5. Endo: pmh DM continue insulin, adjust prn 6. Renal: pmh CKD4 will monitor creatinine 7. : monitor PVRs 8. DVT ppx: ASA 325 mg 9. GI ppx: protonix 10. Pain: tylenol 11. Skin: BID dressing changes 12. heme: chronic anemic, although hemodynamically stable, will order FOBT 11.Dispo: TBD Allergies Coded Allergies: No Known Allergies (Unverified , 12/11/16) Vital Signs Vital Signs Date Time Temp Pulse Resp B/P (MAP) Pulse Ox O2 Delivery O2 Flow Rate FiO2 01/31/19 08:43 148/82 01/31/19 08:43 60 01/31/19 06:00 97.2 16 98 Laboratory Data CBC/BMP Laboratory Tests 01/31/19 06:14 Red Blood Count 3.04 L, Mean Corpuscular Volume 88.5, Mean Corpuscular Hemoglobin 28.0, Mean Corpuscular Hemoglobin Concent 31.6 L, Red Cell Distribution Width 14.7 H, Neutrophils (%) (Auto) 66.7 H, Lymphocytes (%) (Auto) 18.1 L, Monocytes (%) (Auto) 6.8 H, Eosinophils (%) (Auto) 6.7 H, Basophils (%) (Auto) 1.0, Neutrophils # (Auto) 4.8, Lymphocytes # (Auto) 1.3 L, Monocytes # (Auto) 0.5, Eosinophils # (Auto) 0.5, Basophils # (Auto) 0.1, Calcium Level 9.1 Labs 24H Laboratory Tests 2 01/30/19 11:32: Bedside Glucose (Misc Panel) 105 01/30/19 16:27: Bedside Glucose (Misc Panel) 170H 01/30/19 19:41: Bedside Glucose (Misc Panel) 176H 01/31/19 06:14: Immature Granulocyte % (Auto) 0.7, White Blood Count 7.2, Red Blood Count 3.04L, Hemoglobin 8.5L, Hematocrit 26.9L, Mean Corpuscular Volume 88.5, Mean Corpuscular Hemoglobin 28.0, Mean Corpuscular Hemoglobin Concent 31.6L, Red Cell Distribution Width 14.7H, Platelet Count 323, Neutrophils (%) (Auto) 66.7H, Lymphocytes (%) (Auto) 18.1L, Monocytes (%) (Auto) 6.8H, Eosinophils (%) (Auto) 6.7H, Basophils (%) (Auto) 1.0, Neutrophils # (Auto) 4.8, Lymphocytes # (Auto) 1.3L, Monocytes # (Auto) 0.5, Eosinophils # (Auto) 0.5, Basophils # (Auto) 0.1, Nucleated Red Blood Cells % (auto) 0.0, Anion Gap 8, Glomerular Filtration Rate 23.8L, Blood Urea Nitrogen 37H, Creatinine 2.89H, Sodium Level 141, Potassium Level 4.5, Chloride Level 112H, Carbon Dioxide Level 21, Calcium Level 9.1 01/31/19 06:17: Bedside Glucose (Misc Panel) 173H Microbiology Microbiology 01/29/19 Stool Occult Blood (ROSMERY) - Final, Complete Current Medications Current Medications Current Medications Acetaminophen (Tylenol Tab) 650 mg Q4HP PRN PO MILD PAIN (PS 1-4); Start 01/27/19 at 13:00 Acetaminophen (Tylenol Tab) 1,000 mg TID PO Last administered on 01/31/19 08:44; Start 01/27/19 at 16:00 Al Hydrox/Mg Hydrox/Simethicone (Mylanta) 30 ml Q4HP PRN PO DYSPEPSIA; Start 01/27/19 at 13:00 Allopurinol (Zyloprim) 100 mg DAILY PO Last administered on 01/31/19 08:43; Start 01/28/19 at 09:00 Aspirin (Aspirin) 325 mg DAILY PO Last administered on 01/31/19 08:43; Start 01/28/19 at 09:00 Atorvastatin Calcium (Lipitor) 40 mg QHS PO Last administered on 01/30/19 20:33; Start 01/27/19 at 21:00 Calcium Carbonate (Tums) 500 mg MoFr@0900 PO Last administered on 01/31/19 08:44; Start 01/28/19 at 09:00 Carvedilol (COReg) 6.25 mg BID PO Last administered on 01/31/19 08:43; Start at 21:00 Clonidine HCl (Catapres) 0.1 mg BID PO Last administered on 01/31/19 08:43; Start 01/27/19 at 21:00 Dextrose (Dextrose 50%) 25 ml ASDIRECTED PRN IV SEE LABEL COMMENTS; Start 01/27/19 at 13:45 Docusate Sodium (Colace) 100 mg BID PO Last administered on 01/30/19 20:33; Start 01/27/19 at 21:00 Ferrous Gluconate (Fergon) 324 mg DAILY PO Last administered on 01/31/19at 08:43; Start 01/28/19 at 09:00 Glucagon (Glucagon) 1 mg ASDIRECTED PRN SC SEE LABEL COMMENTS; Start 01/27/19 at 13:45 Glucose (Glucose) 16 GM ASDIRECTED PRN PO SEE LABEL COMMENTS; Start 01/27/19 at 13:45 Home Med (Med Rec Complete!) ASDIRECTED XX ; Start 01/27/19 at 14:45; Stop 01/27/19 at 15:06; Status DC Insulin Detemir (Levemir Insulin) 10 units DAILY SC ; Start 01/28/19 at 09:00; Stop 01/28/19 at 09:00; Status DC Insulin Detemir (Levemir Insulin) 30 units QHS SC Last administered on 01/30/19at 20:34; Start 01/27/19 at 21:00 Insulin Human Lispro (HumaLOG INSULIN) SEE PROTOCOL TABLE AC SC Last admin istered on 01/31/19at 08:45; Start 01/27/19 at 17:30 Insulin Human Lispro (HumaLOG INSULIN) SEE PROTOCOL TABLE QHS SC ; Start 01/27/19 at 21:00 Lisinopril (Prinivil) 40 mg DAILY PO Last administered on 01/31/19at 08:44; Start 01/28/19 at 09:00 Oxycodone HCl (Roxicodone, Oxyir) 5 mg Q6HP PRN PO PAIN; Start 01/27/19 at 13:45; Status UNV Pantoprazole Sodium (Protonix) 40 mg DAILY PO Last administered on 01/31/19at 08:44; Start 01/28/19 at 09:00 Senna (Senokot) 1 tab QHS PO Last administered on 01/30/19at 20:33; Start 01/27/19 at 21:00 Spironolactone (Aldactone) 25 mg QAM PO Last administered on 01/31/19at 08:43; Start 01/28/19 at 09:00 Torsemide (Demadex) 5 mg QHS PO Last administered on 01/30/19at 20:33; Start 01/27/19 at 21:00 MARIO VEGA MD Jan 31, 2019 10:22
--- NOTE | 2019-01-31 10:23 | IPNPDOC ---
PM&R Progress Note DATE OF SERVICE: Jan 31, 2019 Machine Whitener Progress Note Subjective: Patient reporting he is eager and ready to go home tomorrow. REVIEW OF SYSTEMS: The following is a completed review of systems and has been reviewed. Review of systems otherwise unremarkable. PAIN: Patient self reports no pain EYES: no recent vision change EARS, NOSE, & THROAT: denies dysphagia, rhinorrhea, or throat pain CARDIOVASCULAR: denies chest pain or palpitations PULMONARY: Negative. Denies shortness of breath GASTROINTESTINAL: denies constipation/diarrhea GENITOURINARY: denies dysuria/incontinence MUSCULOSKELETAL: bilateral BKA NEUROLOGICAL: peripheral neuropathy HEMATOLOGICAL: +anemia SKIN: right BKA incision PSYCHIATRIC: Unremarkable All other review of systems found to be negative. PHYSICAL EXAMINATION: VITAL SIGNS: Please see below. GENERAL: Pleasant and cooperative. No acute distress. HEENT: PERRL. Extraocular movements intact. Clear conjunctiva CARDIOVASCULAR: Regular rate and rhythm. No murmurs, rubs, or gallops LUNGS: Clear to auscultation bilaterally. No wheezes. No rhonchi ABDOMEN: Soft, nontender, nondistended. Positive bowel sounds. Normal active bowel sounds NEUROLOGICAL: Alert and oriented times three. Cranial nerves II through XII grossly intact. Sensation grossly intact in UE, diminished distally bilat LE EXTREMITIES: 5\5 strength bilateral upper extremities. 5\5 strength right lower extremity. 5/5 strength in left lower extremity. SKIN: left residual limb no skin breakdown right residual limb- sutures mostly c/d//i no induration ASSESSMENT:58-year-old M with past medical history of left BKA with prosthesis who presents status post right BKA. PLAN: 1. rehab: PT, OT, propelling himself in wheelchair well, Mod-I for mobility and ADLs-room privileges -NWB to RLE -strengthen LLE, stretch RLE and maintain knee extension, desensitization therapy, strengthen bilat UE 2. Ortho: pmh left BKA, s/p right BKA 01/21/19 NWB, acewrap-will need follow-up with surgeon 3. CArdio: pmh HTN, HLD, pacemaker for sick sinus syndrome- c/u home meds, medicine consulted 4. Resp: encourage incentive spirometry 5. Endo: pmh DM continue insulin, adjust prn 6. Renal: pmh CKD4 will monitor creatinine 7. : monitor PVRs 8. DVT ppx: ASA 325 mg 9. GI ppx: protonix 10. Pain: tylenol 11. Skin: BID dressing changes 12. heme: chronic anemic, although hemodynamically stable, FOBT positive, willr ecommend and refer for outptient GI workup- clincially stable on floor 11.Dispo: to home after therapy, quickly progressing Allergies Coded Allergies: No Known Allergies (Unverified , 12/11/16) Vital Signs Vital Signs Date Time Temp Pulse Resp B/P (MAP) Pulse Ox O2 Delivery O2 Flow Rate FiO2 01/31/19 08:43 148/82 01/31/19 08:43 60 01/31/19 06:00 97.2 16 98 Laboratory Data CBC/BMP Laboratory Tests 01/31/19 06:14 Red Blood Count 3.04 L, Mean Corpuscular Volume 88.5, Mean Corpuscular Hemoglobin 28.0, Mean Corpuscular Hemoglobin Concent 31.6 L, Red Cell Distribution Width 14.7 H, Neutrophils (%) (Auto) 66.7 H, Lymphocytes (%) (Auto) 18.1 L, Monocytes (%) (Auto) 6.8 H, Eosinophils (%) (Auto) 6.7 H, Basophils (%) (Auto) 1.0, Neutrophils # (Auto) 4.8, Lymphocytes # (Auto) 1.3 L, Monocytes # (Auto) 0.5, Eosinophils # (Auto) 0.5, Basophils # (Auto) 0.1, Calcium Level 9.1 Labs 24H Laboratory Tests 2 01/30/19 11:32: Bedside Glucose (Misc Panel) 105 01/30/19 16:27: Bedside Glucose (Misc Panel) 170H 01/30/19 19:41: Bedside Glucose (Misc Panel) 176H 01/31/19 06:14: Immature Granulocyte % (Auto) 0.7, White Blood Count 7.2, Red Blood Count 3.04L, Hemoglobin 8.5L, Hematocrit 26.9L, Mean Corpuscular Volume 88.5, Mean Corpuscular Hemoglobin 28.0, Mean Corpuscular Hemoglobin Concent 31.6L, Red Cell Distribution Width 14.7H, Platelet Count 323, Neutrophils (%) (Auto) 66.7H, Lymphocytes (%) (Auto) 18.1L, Monocytes (%) (Auto) 6.8H, Eosinophils (%) (Auto) 6.7H, Basophils (%) (Auto) 1.0, Neutrophils # (Auto) 4.8, Lymphocytes # (Auto) 1.3L, Monocytes # (Auto) 0.5, Eosinophils # (Auto) 0.5, Basophils # (Auto) 0.1, Nucleated Red Blood Cells % (auto) 0.0, Anion Gap 8, Glomerular Filtration Rate 23.8L, Blood Urea Nitrogen 37H, Creatinine 2.89H, Sodium Level 141, Potassium Level 4.5, Chloride Level 112H, Carbon Dioxide Level 21, Calcium Level 9.1 01/31/19 06:17: Bedside Glucose (Misc Panel) 173H Microbiology Microbiology 01/29/19 Stool Occult Blood (ROSMERY) - Final, Complete Current Medications Current Medications Current Medications Acetaminophen (Tylenol Tab) 650 mg Q4HP PRN PO MILD PAIN (PS 1-4); Start 01/27/19 at 13:00 Acetaminophen (Tylenol Tab) 1,000 mg TID PO Last administered on 01/31/19 08:44; Start 01/27/19 at 16:00 Al Hydrox/Mg Hydrox/Simethicone (Mylanta) 30 ml Q4HP PRN PO DYSPEPSIA; Start 01/27/19 at 13:00 Allopurinol (Zyloprim) 100 mg DAILY PO Last administered on 01/31/19 08:43; Start 01/28/19 at 09:00 Aspirin (Aspirin) 325 mg DAILY PO Last administered on 01/31/19 08:43; Start 01/28/19 at 09:00 Atorvastatin Calcium (Lipitor) 40 mg QHS PO Last administered on 01/30/19 20:33; Start 01/27/19 at 21:00 Calcium Carbonate (Tums) 500 mg MoFr@0900 PO Last administered on 01/31/19 08:44; Start 01/28/19 at 09:00 Carvedilol (COReg) 6.25 mg BID PO Last administered on 01/31/19 08:43; Start 01/27/19 at 21:00 Clonidine HCl (Catapres) 0.1 mg BID PO Last administered on 01/31/19 08:43; Start 01/27/19 at 21:00 Dextrose (Dextrose 50%) 25 ml ASDIRECTED PRN IV SEE LABEL COMMENTS; Start 01/27/19 at 13:45 Docusate Sodium (Colace) 100 mg BID PO Last administered on 01/30/19at 20:33; Start 01/27/19 at 21:00 Ferrous Gluconate (Fergon) 324 mg DAILY PO Last administered on 01/31/19at 08:43; Start 01/28/19 at 09:00 Glucagon (Glucagon) 1 mg ASDIRECTED PRN SC SEE LABEL COMMENTS; Start 01/27/19 at 13:45 Glucose (Glucose) 16 GM ASDIRECTED PRN PO SEE LABEL COMMENTS; Start 01/27/19 at 13:45 Home Med (Med Rec Complete!) ASDIRECTED XX ; Start 01/27/19 at 14:45; Stop 01/27/19 at 15:06; Status DC Insulin Detemir (Levemir Insulin) 10 units DAILY SC ; Start 01/28/19 at 09:00; Stop 01/28/19 at 09:00; Status DC Insulin Detemir (Levemir Insulin) 30 units QHS SC Last administered on 01/30/19at 20:34; Start 01/27/19 at 21:00 Insulin Human Lispro (HumaLOG INSULIN) SEE PROTOCOL TABLE AC SC Last administered on 01/31/19at 08:45; Start 01/27/19 at 17:30 Insulin Human Lispro (HumaLOG INSULIN) SEE PROTOCOL TABLE QHS SC ; Start 01/27/19 at 21:00 Lisinopril (Prinivil) 40 mg DAILY PO Last administered on 01/31/19at 08:44; Start 01/28/19 at 09:00 Oxycodone HCl (Roxicodone, Oxyir) 5 mg Q6HP PRN PO PAIN; Start 01/27/19 at 13:45; Status UNV Pantoprazole Sodium (Protonix) 40 mg DAILY PO Last administered on 01/31/19at 08:44; Start 01/28/19 at 09:00 Senna (Senokot) 1 tab QHS PO Last administered on 01/30/19at 20:33; Start 01/27/19 at 21:00 Spironolactone (Aldactone) 25 mg QAM PO Last administered on 7/1/19at 08:43; Start 01/28/19 at 09:00 Torsemide (Demadex) 5 mg QHS PO Last administered on 01/30/19at 20:33; Start 01/27/19 at 21:00 MARIO VEGA MD Jan 31, 2019 10:23
[2019-01-31 14:00] VITALS: BP 176/86
[2019-01-31 20:00] VITALS: BP 182/100
[2019-01-31] MEDS: SENNA 8.6 MG TAB (SENOKOT) PO SCH (21:00)
[2019-01-31] MEDS: ATORVASTATIN 20 MG TAB PO SCH (21:45)
[2019-01-31] MEDS: TORSEMIDE 5MG TABLET PO SCH (21:45)
[2019-01-31] MEDS: LEVEMIR (INSULIN DETEMIR) 1 UNITS/0.01ML SC SCH (21:47)
[2019-02-01 05:54] VITALS: BP 160/90
[2019-02-01] MEDS: DOCUSATE SODIUM 100 MG CAP PO SCH (09:00)
[2019-02-01] MEDS: PANTOPRAZOLE 40MG TAB (PROTONIX) PO SCH (09:34)
[2019-02-01] MEDS: CARVedilol 6.25 MG TAB PO SCH (09:34)
[2019-02-01] MEDS: FERROUS GLUCONATE 324 MG TAB PO SCH (09:34)
[2019-02-01] MEDS: ALLOPURINOL 100 MG TAB PO SCH (09:35)
[2019-02-01] MEDS: SPIRONOLACTONE 25 MG TAB PO SCH (09:35)
[2019-02-01] MEDS: ACETAMINOPHEN 500 MG TAB PO SCH (09:35)
[2019-02-01] MEDS: LISINOPRIL 40 MG TAB PO SCH (09:35)
[2019-02-01 09:36] VITALS: BP 160/90
[2019-02-01] MEDS: ASPIRIN 325 MG TAB PO SCH (09:36)
[2019-02-01] MEDS: cloNIDine 0.1 MG TAB PO SCH (09:36)
[2019-02-01] MEDS: HumaLOG INSULIN (NovoLOG) PER UNIT SC SCH ×2 (09:36→12:31)
[2019-02-01] MEDS ORDERED: FERR32TA PO (10:52)
[2019-02-01] MEDS ORDERED: TORS5TAB2 PO (10:52)
[2019-02-01] MEDS ORDERED: ATOR1TAB21 PO (10:52)
[2019-02-01] MEDS ORDERED: CARV6.25 PO (10:52)
[2019-02-01] MEDS ORDERED: PANT40TA3 PO (10:52)
[2019-02-01] MEDS ORDERED: ALDA25TA2 PO (10:52)
[2019-02-01] MEDS ORDERED: LISI40TA PO (10:52)
[2019-02-01] MEDS ORDERED: ACET-683 PO (10:52)
[2019-02-01] MEDS ORDERED: CLONI1TA PO (10:52)
[2019-02-01] MEDS ORDERED: ASPI-1 PO (10:52)
[2019-02-01] MEDS ORDERED: ALLO10TA PO (10:52)
[2019-02-01] MEDS ORDERED: INSUDET SC (10:52)
--- NOTE | 2019-02-01 11:35 | PMRDS ---
DATE OF ADMISSION: 01/27/2019 DATE OF DISCHARGE: 02/01/2019 CHIEF COMPLAINT/DISCHARGE DIAGNOSIS: Right below-knee amputation (BKA). HISTORY OF PRESENT ILLNESS: A 58-year-old male with a past medical history of diabetes, hypertension, hyperlipidemia, pacemaker secondary to sick sinus syndrome, stage IV chronic kidney disease (CKD), bilateral Charcot joint status post left BKA in 2016 with prosthesis, presented to [facility] on 01/21/2019 with right-sided Charcot ankle foot deformity with a chronic wound. He had preoperative cardiac clearance per Dr. Hinojosa and underwent a right BKA on 01/21/2019 without complication with procedure performed by Dr. Bailey. He was placed on aspirin for deep venous thrombosis (DVT) prophylaxis and treated with empiric Zosyn based off of wound cultures positive for methicillin-susceptible Staphylococcus aureus (MSSA). He had a drop in his hemoglobin requiring blood transfusions, and he was taken off of antibiotics once his bone pathology came back negative. A plaster knee immobilizer was placed on his right leg. He was evaluated by therapy and found to have deficits in mobility and activities of daily living (ADLs) below his prior level of function. He was deemed medically appropriate for discharge to ARU on 01/28/2019. PAST MEDICAL HISTORY: As per history of present illness (HPI). HOSPITAL COURSE: The patient was admitted and enrolled in a comprehensive physical therapy (PT) and occupational therapy (OT) program. He received 24-hour nursing supervision, and team meetings were held to discuss his progress. During his hospital course, he was able to propel his own wheelchair, learned how to wrap his own limb. He was maintained on his home medications for his hypertension and hyperlipidemia without any complications. A fecal occult blood test was ordered, positive for fecal occult blood. However, his hemoglobin and hematocrit did not change during his hospital course, and he was discharged with referral for a GI followup. He was maintained on aspirin for DVT prophylaxis and overall progressed quite quickly with therapy and was deemed functionally medically stable to return home. DISCHARGE MEDICATIONS: As per discharge instructions. FUNCTIONAL HISTORY UPON DISCHARGE: The patient was modified independent for functional transfers and wheelchair level able to propel his wheelchair 300 feet and modified independent for upper body and lower body dressing, grooming, toileting.
== END 2019-02-01 13:28 | disposition home or self-care (01) | DRG 560 ==
LOC: M PM&R 13:45
PROVIDERS: ADMIT Physical Medicine & Rehabilitation; ATTEND Physical Medicine & Rehabilitation
DX: Z47.81 Encounter for orthopedic aftercare following surgical amputation (principal); N18.4 Chronic kidney disease, stage 4 (severe); Z89.511 Acquired absence of right leg below knee; E11.618 Type 2 diabetes mellitus with other diabetic arthropathy; I12.9 Hypertensive chronic kidney disease with stage 1 through stage 4 chronic kidney disease, or unspecified chronic kidney disease; E78.5 Hyperlipidemia, unspecified; Z95.0 Presence of cardiac pacemaker; Z89.512 Acquired absence of left leg below knee; Z79.899 Other long term (current) drug therapy; Z79.82 Long term (current) use of aspirin

== ENCOUNTER → 2019-05-31 | Outpatient (REF) | payer MEDICARE ==
[~2019-05-31] MED LIST changes: +ACET-683 PO; +ALDA25TA2 PO; +ALLO10TA PO; +APAP325T4 PO; +ASPI-1 PO; +ATOR1TAB21 PO; +BAYE325T13 PO; +C 50TAB PO; +CALC600T5 PO; +CARV6.25 PO; +CLONI1TA PO; +FERR32TA PO; +INSUDET SC; +PANT40TA3 PO; +SPIR-10 PO
[2019-06-01 10:41] LABS: HEPATITIS B CORE ANTIBODY IGM NEGATIVE (NEGATIVE); HEPATITIS B SURFACE ANTIBODY NEGATIVE (POSITIVE); HEPATITIS B SURFACE ANTIGEN NEGATIVE (NEGATIVE)
== END ==
LOC: M LAB REF 17:10
PROVIDERS: ATTEND Nurse Practitioner Family
DX: N18.5 Chronic kidney disease, stage 5 (principal)

== ENCOUNTER → 2019-06-07 | Outpatient (POV) | payer MEDICARE ==
[~2019-06-07] VITALS: Ht 175.3 cm; Wt 136.4 kg
[2019-06-07 09:00] VITALS: BP 142/66
--- NOTE | 2019-06-08 08:44 | IRCOV ---
[facility] IR Consult Office Visit IR Consult Office Visit DATE: Jun 07, 2019 REASON FOR CONSULTATION/CHIEF COMPLAINT: Renal failure. Nephrology plans to start hemodialysis. HISTORY OF PRESENT ILLNESS: 58-year-old male referred by [facility] for PermCath placement. Patient has a right upper arm fistula which was created in November 2018 and said to be not mature. Patient denies chest pain, shortness of breath, fevers, chills. No prior central venous lines. No facial swelling. ALLERGIES: Please see below. HOME MEDICATIONS: Please see below. PAST MEDICAL HISTORY: Diabetes Hypertension Chronic kidney disease stage IV Hyperlipidemia PAST SURGICAL HISTORY: Heel surgery Left below-knee amputation Pacemaker Right below-knee amputation FAMILY HISTORY: Hypercholesterolemia. SOCIAL HISTORY: Nonsmoker. Denies alcohol or drugs. REVIEW OF SYSTEMS: Otherwise negative. PHYSICAL EXAMINATION: VITAL SIGNS: Please see below. GENERAL APPEARANCE: Appears well. Comfortable at rest. HEENT: No scleral icterus. RESPIRATORY: Normal breathing at rest. CARDIOVASCULAR: Normal rate. ABDOMEN: Soft nontender. EXTREMITIES: Right arm fistula. No pulsatility. Thrill present but fistula difficult to palpate. No redness or tenderness. No skin changes. Bilateral below-knee amputations. NEUROLOGICAL: Alert and oriented. PSYCHIATRIC: Appropriate to circumstance. LABORATORY DATA: 05/31/2019 hemoglobin 9.0 WBC 7.1 platelets 307 sodium 131.6 potassium 5.18 BUNs 47.4 creatinine 3.99 GFR 15. Imaging: I personally reviewed the chest radiograph from 07/12/2018. There is a pacemaker with left-sided chest leads. No right-sided lines. ASSESSMENT/PLAN: 1. 58 male with end-stage renal disease needs to start hemodialysis. Right arm fistula not mature. Will require PermCath placement. While ideally I would like to go on the left side as the fistula is on the right side, this would put him at risk for brachiocephalic stenosis with the pacer leads already in place. Therefore patient will require right-sided PermCath. We'll schedule the patient for the procedure to be done under moderate sedation. 2. Follow up with surgery regarding fistula. I spent 30 minutes in consultation with the patient. Thank you for this referral. Allergies Coded Allergies: No Known Allergies (Unverified , 12/11/16) Home Medications Scheduled Acetaminophen (Acetaminophen), 1,000 MG PO TID Allopurinol (Allopurinol), 100 MG PO DAILY, (Reported) Allopurinol (Allopurinol), 100 MG PO DAILY Ascorbic Acid (Vitamin C), 500 MG PO BIDWM, (Reported) Aspirin (Aspirin), 325 MG PO DAILY, (Reported) Aspirin (Aspirin), 325 MG PO DAILY Atorvastatin Calcium (Atorvastatin Calcium), 40 MG PO QHS, (Reported) Atorvastatin Calcium (Atorvastatin Calcium), 40 MG PO QHS Calcium Carbonate (Calcium), 600 MG PO 2XW, (Reported) Carvedilol (Carvedilol), 6.25 MG PO BID, (Reported) Carvedilol (Carvedilol), 6.25 MG PO BID Clonidine HCl (Clonidine HCl), 0.1 MG PO BID, (Reported) Clonidine Hcl (Clonidine HCl), 0.1 MG PO BID Ferrous Gluconate (Ferrous Gluconate), 324 MG PO DAILY Insulin Detemir (Levemir), 30 UNITS SC QHS Insulin Human Lispro (Humalog), 1 DOSE SC AC, (Reported) Iron Polysaccharide Complex (Poly-Iron), 150 MG PO QHS, (Reported) Lisinopril (Lisinopril), 40 MG PO DAILY, (Reported) Lisinopril (Lisinopril), 40 MG PO DAILY Pantoprazole Sodium (Pantoprazole Sodium), 40 MG PO DAILY Spironolactone (Spironolactone), 25 MG PO DAILY, (Reported) Spironolactone (Aldactone), 25 MG PO QAM Torsemide (Torsemide), 5 MG PO QPM, (Reported) Torsemide (Torsemide), 5 MG PO QHS VS, I&O, 24H, Fishbone Vital Signs/I&O Vital Signs Date Time Temp Pulse Resp B/P (MAP) Pulse Ox O2 Delivery O2 Flow Rate FiO2 06/07/19 09:00 98.0 61 18 142/66 (91) 99 Room Air THANIA VASQUEZ MD Jun 08, 2019 08:44
== END ==
LOC: M IRPOV 08:53
PROVIDERS: ATTEND Radiology Diagnostic Radiology
DX: N18.6 End stage renal disease (principal); E11.22 Type 2 diabetes mellitus with diabetic chronic kidney disease; E78.5 Hyperlipidemia, unspecified; Z89.511 Acquired absence of right leg below knee; Z89.512 Acquired absence of left leg below knee; Z95.0 Presence of cardiac pacemaker; Z79.899 Other long term (current) drug therapy; Z79.82 Long term (current) use of aspirin; Z79.4 Long term (current) use of insulin

== ENCOUNTER → 2019-06-08 | Outpatient (CLI) | payer MEDICARE ==
[~2019-06-08] MED LIST changes: +HEPARIN 1,000 UNITS/ML 10ML VIAL (FOR RADIOLOGY& DIALYSIS ONLY) As Ordered ONE; +LIDOCAINE 1% MDV 20ML VIAL As Ordered ONE; +MIDAZOLAM INJ 2 MG/2 ML VIAL (J2250) As Ordered ONE; +ceFAZolin 1GM INJ (J0690 PER 500MG) As Ordered ONE; +diphenhydrAMINE INJ 50MG/ML VIAL (J1200) As Ordered ONE; +fentaNYL 100 MCG/2 ML INJECTION (J3010) As Ordered ONE
--- NOTE | 2019-06-08 12:50 | IRMSE ---
[facility] IR Moderate Sedation Eval. Date and Time Date: Jun 08, 2019 Time: 12:50 ASA Classification ASA Classification: III-Severe systemic dis. Mallampati Score: I NPO: Yes Obstructive Sleep Apnea: No Interval Plan: moderate sedation THANIA VASQUEZ MD Jun 08, 2019 12:50
--- NOTE | 2019-06-08 13:42 | POST-OPPD ---
Postoperative Procedure Note Date Of Procedure: Jun 08, 2019 Time Of Procedure: 13:40 PREOPERATIVE DIAGNOSIS: renal failure POSTOPERATIVE DIAGNOSIS: renal failure FINDINGS: patent right IJ PROCEDURE: right side perm cath. ready to use SURGEON: Rajendra ANESTHESIA: mod sed ESTIMATED BLOOD LOSS: < 5 ml COMPLICATIONS: none POSTOPERATIVE CONDITION: stable THANIA VASQUEZ MD Jun 08, 2019 13:42
[2019-06-08 15:13] VITALS: BP 154/69
--- NOTE | 2019-06-08 15:49 | REP ---
IR Permcath placement. IR ultrasound of the right neck. IR Permcath insertion under fluoroscopy and ultrasound guidance. IR moderate sedation. Clinical information: Renal failure. Needs dialysis. Physician: Dr. Drew. Procedure: The patient was advised of the benefits, risks and alternatives of the procedure and informed consent was obtained. The time-out was performed with verification of the patient's name, MRN, site of procedure and type of procedure to be performed. The patient was positioned in the supine position on the angiographic table. The site was prepped and draped in the usual sterile fashion. Moderate sedation was performed by the physician including the presence of an independent trained observer that assisted in monitoring the patient's level of consciousness and physiologic status. Following the administration of fentanyl and Versed , the physician spent 45 minutes of continuous face to face time with the patient. Ultrasound of the right neck reveals a patent and compressible right internal jugular vein. A special warfare operator radiograph reveals cardiac pacer leads. The neck and anterior chest wall were anesthetized with lidocaine. The right internal jugular vein was accessed under ultrasound guidance, using a micro introducer needle, via a lateral approach. An 018 cope wire was advanced into the inferior vena cava. Incision at the internal jugular access site and anterior chest wall were made using a scalpel. The needle was removed and the tract was serially dilated under fluoroscopy guidance. A peel away sheath was advanced over the wire under fluoroscopy guidance into the Superior vena cava. The catheter was inserted through the subcutaneous tissues of the chest wall with a tunneling device. The catheter was then advanced through the peel-away sheath under fluoroscopy guidance to the right atrium. The peel-away sheath was removed. The catheter was positioned with the tip in the right atrium. The puncture site was closed. The catheter was secured in place using 2-0 Prolene. Both sites were cleansed and sterile dressings applied. At the conclusion of the procedure, the ports of the catheter aspirate and flush freely. The catheter was locked with high-dose heparin. The patient tolerated the procedure well and was returned to the PRU in stable condition. EBL: < 5 ml. Complications: None. Conclusion: Successful placement of right sided Palindrome Permcath for dialysis. The catheter is ready for immediate use. Thank you this referral. Electronically Signed by Jeaneth Drew MD 06/08/2019 03:48 P
== END ==
LOC: M IRPRO 11:04
PROVIDERS: ATTEND Radiology Diagnostic Radiology
DX: N19 Unspecified kidney failure (principal)
CPT/HCPCS: 36560; 76937; 77001; 99152; 99153; C1750; C1769; C1894; J0690; J1200; J2250; J3010

== ENCOUNTER → 2019-07-04 | Outpatient (REF) | payer MEDICARE ==
[~2019-07-04] MED LIST changes: -HEPARIN 1,000 UNITS/ML 10ML VIAL (FOR RADIOLOGY& DIALYSIS ONLY) As Ordered ONE; -LIDOCAINE 1% MDV 20ML VIAL As Ordered ONE; -MIDAZOLAM INJ 2 MG/2 ML VIAL (J2250) As Ordered ONE; -ceFAZolin 1GM INJ (J0690 PER 500MG) As Ordered ONE; -diphenhydrAMINE INJ 50MG/ML VIAL (J1200) As Ordered ONE; -fentaNYL 100 MCG/2 ML INJECTION (J3010) As Ordered ONE
[2019-07-04 18:15] LABS: ALBUMIN 3.2 GM/DL (3.2-5.2); BILIRUBIN,TOTAL 0.2 MG/DL (0.2-1.0); CALCIUM LEVEL 8.9 MG/DL (8.8-10.2); CHOLESTEROL RISK RATIO 2.659 (<5); CREATININE FOR GFR 3.89 MG/DL (0.70-1.30); GLOMERULAR FILTRATION RATE 16.9 (>49); POTASSIUM SERUM 4.2 MEQ/L (3.5-5.1); THYROID STIMULATING HORMONE 0.758 uIU/ML (0.358-3.740); TOTAL PROTEIN 6.5 GM/DL (6.4-8.2)
[2019-07-04 18:21] LABS: TOTAL 25(OH) VITAMIN D 20.9 NG/ML (30.0-100.0)
[2019-07-04 18:23] LABS: BASO # 0.1 10^3/uL (0.0-0.2); BASO % 0.7 % (0.0-1.0); EOS # 0.2 10^3/uL (0.0-0.5); EOS % 2.3 % (0.0-3.0); HEMOGLOBIN 9.4 g/dl (13.5-17.5); LYMPH # 1.4 10^3/uL (1.5-5.0); LYMPH % 17.4 % (24.0-44.0); MEAN CORPUSCULAR HEMOGLOBIN 29.6 pg (27.0-33.0); MEAN CORPUSCULAR HGB CONC 31.3 g/dl (32.0-36.5); MEAN CORPUSCULAR VOLUME 94.3 fl (80.0-96.0); MONO # 0.6 10^3/uL (0.0-0.8); MONO % 7.6 % (0.0-5.0); NEUTROPHILS # 5.9 10^3/uL (1.5-8.5); PLATELET COUNT, AUTOMATED 250 10^3/uL (150-450); RED BLOOD COUNT 3.18 10^6/uL (4.30-6.10); WHITE BLOOD COUNT 8.3 10^3/uL (4.0-10.0)
[2019-07-04 18:35] LABS: HEMOGLOBIN A1c 8.1 %
[2019-07-04 19:05] LABS: CREATININE, URINE 68.2 MG/DL
== END ==
LOC: M SFHCCAPE 07:05
PROVIDERS: ATTEND Physician Assistant
DX: E78.2 Mixed hyperlipidemia (principal); E11.8 Type 2 diabetes mellitus with unspecified complications

== ENCOUNTER → 2019-09-29 | Outpatient (CLI) | payer MEDICARE ==
[~2019-09-29] MED LIST changes: +LIDOCAINE 1% MDV 20ML VIAL As Ordered ONE
[2019-09-29 11:34] VITALS: BP 194/91
--- NOTE | 2019-09-29 14:30 | POST-OPPD ---
Postoperative Procedure Note Date Of Procedure: Sep 29, 2019 Time Of Procedure: 14:26 PREOPERATIVE DIAGNOSIS: RF. fistula working. permcath not needed POSTOPERATIVE DIAGNOSIS: same FINDINGS: right IJ perm PROCEDURE: IR Tunneled Catheter Removal Physician: Dr. Drew. Procedure: The patient was advised of the benefits, risks, and alternatives of the procedure and informed consent was obtained. A time out was performed with verification of the patient's name, MRN, site of procedure, and type of procedure to be performed. The patient was positioned in the supine position. The indwelling Permcath was prepped and draped in the usual sterile fashion. 1% lidocaine was injected along the catheter tract. Using sterile curved hemostats, the cuff of the catheter was dissected free and the catheter was then easily removed. Direct pressure was applied to the jugular puncture site for 10 minutes and a sterile dressing was applied to the site. EBL: < 5 mL. Complications: None Conclusion: Successful removal of a catheter without immediate complications or bleeding. THANIA DREW MD Sep 29, 2019 14:29
== END ==
LOC: M IRPRO 10:50
PROVIDERS: ATTEND Radiology Diagnostic Radiology
DX: Z45.2 Encounter for adjustment and management of vascular access device (principal); N18.6 End stage renal disease

== ENCOUNTER → 2019-10-04 | Outpatient (REF) | payer MEDICARE ==
[~2019-10-04] MED LIST changes: -LIDOCAINE 1% MDV 20ML VIAL As Ordered ONE
[2019-10-04 16:36] LABS: BASO # 0.1 10^3/uL (0.0-0.2); BASO % 1.3 % (0.0-1.0); EOS # 0.2 10^3/uL (0.0-0.5); EOS % 2.5 % (0.0-3.0); HEMATOCRIT 37.9 % (42.0-52.0); HEMOGLOBIN 12.3 g/dl (13.5-17.5); LYMPH # 1.1 10^3/uL (1.5-5.0); LYMPH % 18.6 % (24.0-44.0); MEAN CORPUSCULAR HEMOGLOBIN 30.4 pg (27.0-33.0); MEAN CORPUSCULAR HGB CONC 32.5 g/dl (32.0-36.5); MEAN CORPUSCULAR VOLUME 93.6 fl (80.0-96.0); MONO # 0.5 10^3/uL (0.0-0.8); MONO % 7.9 % (0.0-5.0); NEUTROPHILS # 4.2 10^3/uL (1.5-8.5); NEUTROPHILS % 69.2 % (36.0-66.0); PLATELET COUNT, AUTOMATED 252 10^3/uL (150-450); RED BLOOD COUNT 4.05 10^6/uL (4.30-6.10); WHITE BLOOD COUNT 6.1 10^3/uL (4.0-10.0)
[2019-10-04 17:14] LABS: ALBUMIN 3.2 GM/DL (3.2-5.2); BILIRUBIN,TOTAL 0.4 MG/DL (0.2-1.0); CALCIUM LEVEL 9.2 MG/DL (8.8-10.2); CHOLESTEROL RISK RATIO 3.255 (<5); CREATININE FOR GFR 3.51 MG/DL (0.70-1.30); FREE T4 1.01 NG/DL (0.76-1.46); POTASSIUM SERUM 4.3 MEQ/L (3.5-5.1); THYROID STIMULATING HORMONE 1.07 uIU/ML (0.358-3.740); TOTAL PROTEIN 6.6 GM/DL (6.4-8.2)
[2019-10-04 17:21] LABS: TOTAL 25(OH) VITAMIN D 21.4 NG/ML (30.0-100.0)
[2019-10-04 18:07] LABS: HEMOGLOBIN A1c 9.8 %
== END ==
LOC: M SFHCCAPE 07:21
PROVIDERS: ATTEND Physician Assistant
DX: E78.2 Mixed hyperlipidemia (principal); E11.8 Type 2 diabetes mellitus with unspecified complications; E55.9 Vitamin D deficiency, unspecified

== ENCOUNTER → 2020-10-11 | Outpatient (CLI) | payer MEDICARE, OTHER ==
[~2020-10-11] MED LIST changes: -AMLO10TA5 PO; +AMLO1TAB25 PO; +CALC-362 PO; -CALC600T5 PO; +CALC600T61 PO; -CHEW500C2 PO; +HYDR-3490 PO; -HYDR25TAB PO; +ISOVUE-370 76% 100ML VIAL As Ordered ONE; -LISI-538 PO; +LISI20TA33 PO; -LISI40TA PO; +LISI40TA4 PO; +PANT40TA29 PO; -PANT40TA3 PO
--- NOTE | 2020-10-11 09:47 | REP ---
INDICATION: PRE TRANSPLANT EVALUATION COMPARISON: None. TECHNIQUE: CT angiogram of the abdomen and pelvis was performed with intravenous administration of 100 cc of Isovue 370, without oral contrast. 3D MIP reconstruction images performed. FINDINGS: Abdominal aorta: No aneurysm or dissection. The celiac, superior and inferior mesenteric arteries are widely patent. A single main renal artery is seen bilaterally and both are widely patent. There is early bifurcation of the main left renal artery. There is minimal plaque in the bilateral common iliac arteries, which are both widely patent. The bilateral external iliac, internal iliac and common femoral arteries are widely patent. Lung bases: There is a moderate right pleural effusion. There are dependent atelectatic changes in the lung bases. Liver: Liver is enlarged measuring 19.5 cm in length. No liver mass is seen. Gallbladder: Several subcentimeter gallstones in the gallbladder. Spleen: Spleen is mildly enlarged with a length of 13.8 cm. Adrenals: Normal. Pancreas: Normal. Kidneys: There is no renal mass or hydronephrosis bilaterally. Small and large bowel: There are multiple diverticula of the left and sigmoid colon without acute diverticulitis.. Free fluid: There is mild scattered free fluid in the abdomen and pelvis. Adenopathy: None. Appendix: Not inflamed. Pelvis: No mass. Osseous structures: There are degenerative changes of the spine without compression deformity. There is scattered superficial soft tissue edema in the abdominal wall. Small umbilical hernia contains noninflamed fat. There is a small right inguinal hernia containing noninflamed fat. IMPRESSION: No arterial stenosis in the abdomen or pelvis. Moderate right pleural effusion. Dependent atelectatic changes in the lung bases bilaterally. Mild hepatosplenomegaly. Subcentimeter gallstones in the gallbladder. Multiple diverticula of the left and sigmoid colon without acute diverticulitis. Mild diffuse free fluid in the abdomen and pelvis. <Electronically signed by Fermin Pappas > 10/11/20 [id number]
== END ==
LOC: M RAD 08:42
PROVIDERS: ATTEND Nurse Practitioner Family
DX: Z01.818 Encounter for other preprocedural examination (principal)
CPT/HCPCS: 74174; Q9967

== ENCOUNTER → 2020-10-16 | Outpatient (REF) | payer MEDICARE ==
[~2020-10-16] MED LIST changes: -ISOVUE-370 76% 100ML VIAL As Ordered ONE
[2020-10-16 12:11] LABS: BASO # 0.1 10^3/uL (0.0-0.2); EOS # 0.2 10^3/uL (0.0-0.5); EOS % 3.3 % (0.0-3.0); HEMATOCRIT 34.5 % (42.0-52.0); HEMOGLOBIN 10.5 g/dl (13.5-17.5); LYMPH # 0.8 10^3/uL (1.5-5.0); LYMPH % 15.9 % (24.0-44.0); MEAN CORPUSCULAR HEMOGLOBIN 29.3 pg (27.0-33.0); MEAN CORPUSCULAR HGB CONC 30.4 g/dl (32.0-36.5); MEAN CORPUSCULAR VOLUME 96.4 fl (80.0-96.0); MONO # 0.6 10^3/uL (0.0-0.8); NEUTROPHILS # 3.6 10^3/uL (1.5-8.5); NEUTROPHILS % 68.6 % (36.0-66.0); PLATELET COUNT, AUTOMATED 197 10^3/uL (150-450); RED BLOOD COUNT 3.58 10^6/uL (4.30-6.10); WHITE BLOOD COUNT 5.2 10^3/uL (4.0-10.0)
[2020-10-16 14:13] LABS: ALBUMIN 3.1 GM/DL (3.2-5.2); BILIRUBIN,TOTAL 0.6 MG/DL (0.2-1.0); CALCIUM LEVEL 9.1 MG/DL (8.8-10.2); CHOLESTEROL RISK RATIO 1.864 (<5); CREATININE FOR GFR 3.56 MG/DL (0.70-1.30); GLOMERULAR FILTRATION RATE 18.6 (>49); POTASSIUM SERUM 4.8 MEQ/L (3.5-5.1); THYROID STIMULATING HORMONE 1.77 uIU/ML (0.358-3.740); TOTAL 25(OH) VITAMIN D 27.1 NG/ML (30.0-100.0); TOTAL PROTEIN 6.3 GM/DL (6.4-8.2)
[2020-10-16 16:02] LABS: HEMOGLOBIN A1c 6.4 %
== END ==
LOC: M SFHCCLAY 07:20
PROVIDERS: ATTEND Physician Assistant
DX: E11.8 Type 2 diabetes mellitus with unspecified complications (principal); E78.2 Mixed hyperlipidemia; E55.9 Vitamin D deficiency, unspecified

== ENCOUNTER → 2020-11-19 | Outpatient (CLI) | payer MEDICARE ==
--- NOTE | 2020-11-19 12:30 | REP ---
INDICATION: DYSPNEA, UNSPECIFIED. COMPARISON: 07/12/2018 TECHNIQUE: PA and lateral views FINDINGS: The cardiac silhouette is borderline to mildly enlarged. There is a dual chamber bipolar pacemaker device status quo. New opacities have developed in the right lower lobe with CP angle blunting. IMPRESSION: New small right pleural effusion. Concomitant atelectasis/pneumonia cannot be ruled out. <Electronically signed by Minh Albarado > 11/19/20 [id number]
== END ==
LOC: M RAD 11:16
PROVIDERS: ATTEND Nurse Practitioner Family
DX: R06.00 Dyspnea, unspecified (principal); J90 Pleural effusion, not elsewhere classified

== ENCOUNTER → 2021-01-01 | Outpatient (CLI) | payer MEDICARE ==
[~2021-01-01] MED LIST changes: +ISOVUE-300 61% 50ML VIAL As Ordered ONE; +LANTINJ4 SC; +LIDOCAINE 1% MDV 20ML VIAL As Ordered ONE; +MIDAZOLAM INJ 2MG/2ML VIAL (J2250 PER 1MG) As Ordered ONE; +fentaNYL 100 MCG/2 ML INJECTION (J3010) As Ordered ONE
--- NOTE | 2021-01-01 14:32 | ROOPDOC ---
[facility] Report Of Operation Report of Operation DATE OF PROCEDURE: 01/01/21 PREPROCEDURE DIAGNOSES: End-stage renal disease with difficulty cannulating right brachial cephalic AV fistula POSTPROCEDURE DIAGNOSES: Same PROCEDURE: 1. Ultrasound-guided access right cephalic vein 2. Right upper extremity fistulogram and central venogram 3. Angioplasty right cephalic vein with 8 x 20 cutting balloon, 8 x 200 Providence balloon, 9 x 80 Providence balloon 4. Completion venogram SURGEON: Janis Jacobson MD ANESTHESIA: Local anesthesia 2 mL lidocaine. Moderate intravenous conscious sedation was administered by Dr. Jacobson. The patient was independently monitored by a registered nurse assigned to the Department of radiology using automated blood pressure, EKG, and pulse oximetry. The detailed sedation record is permanently stored in the hospital information system. The following is a brief sedation record: Start time 13:30, stop time 14:14, Versed 0.5 mg IV, fentanyl 25 g IV. CONTRAST: 52 mL Isovue-300 INDICATION FOR PROCEDURE: This is a very pleasant 60-year-old gentleman with end-stage renal disease dialyzing with a right brachiocephalic AV fistula. The nurses has had some difficulty with cannulation of his fistula. Risks benefits and alternatives to a fistulogram and potential intervention were explained to the patient needs agreeable to proceed. Informed consent was obtained. INTERPRETATION: 1. The AV anastomosis is widely patent in the right upper extremity, please see ultrasound images for details. There is excellent flow into the fistula. 2. The cephalic vein near the AV anastomosis is somewhat aneurysmal, no stenosis between the 2 aneurysmal portions, and then the vein is a large but tortuous over the bicep and the shoulder. There are some focal narrowings near the junction with the subclavian vein, between 40-80% along that proximal 10 cm area, but good flow into the axillary vein and then good flow from the axillary vein into the subclavian vein and central veins are widely patent. There are some large branches that come off over the bicep and provide additional outflow for the fistula. These do not appear to be stealing blood from the fistula and did not need to be coiled. There are several areas that appeared stenotic, but I think are simply flow differences due to some tortuosity over the bicep. 3. After repeated angioplasties with the cutting balloon, and both Providence balloon's, we did not notice a dramatic difference in luminal diameter proximally in the right cephalic vein or in the cephalic vein over the bicep, but we did note an improvement in the thrill of the fistula. There is dramatic decrease in the right brachiocephalic fistula pulsatility noted at the beginning of the case. No extravasation noted. REPORT OF OPERATION: The patient was brought to the angiographic suite in stable condition. His right upper extremity was prepped and draped in sterile fashion. A timeout was performed. Local anesthesia was administered to the skin and subcutaneous tissue over the cephalic vein near the AV anastomosis. Ultrasound was used to examine the AV anastomosis color-flow Doppler was noted to be widely patent with excellent inflow. Please see images. We then gained access to the right cephalic vein near the AV anastomosis with ultrasound guidance with a microneedle. A wire was passed through this access and a 4 Kosovan sheath was placed and flushed with saline. Sedation was administered without complication. Fistulogram of the right upper extremity and central venogram were performed, please see interpretation above. We then advanced a Glidewire through this access and exchange the sheath for some Kosovan sheath. We exchange the wire for a 018 Glidewire advantage and advances into the central system. Due to the retrograde junction at the proximal cephalic vein leading into the axillary vein, we were not able to advance the wire around that S-shaped curve into the central system. We left the wire in the axillary vein for this procedure. 8 x 20 cutting balloon was used to angioplasty along the length of the proximal cephalic vein for multiple inflations, as well as the areas over the bicep that were suspicious for possible stenosis versus tortuosity. We then exchange this balloon 4 and 8 x 200 balloon and three-minute inflations along the length of cephalic vein were performed, please see interpretation above. We then exchange the balloon for 9 x 80 Providence balloon and additional three-minute inflations were performed along the length cephalic vein, multiple inflations at the proximal. Following this, there was definitely improvement, but still areas of stenosis similar to the start of the case, but no waist on the balloon during angioplasty. I think this is likely more due to tortuosity than actual stenosis. There was a good thrill in the fistula, and it was no longer pulsatile. We then placed a [id number] Prolene suture at that sheath exit site and removed the sheath while securing the suture. Sterile dressings were applied and good hemostasis was noted. We then used ultrasound to zainab the fistula on the skin. I think it's a little bit challenging to access his fistula due to tortuosity, and hopefully working will be helpful. ESTIMATED BLOOD LOSS: Approximately 5 mL. COMPLICATIONS: None. PLAN: Okay to use fistula for dialysis. Okay to resume home diet and medications. We appreciate the opportunity to participate in the care of this patient. JANIS JACOBSON MD Jan 01, 2021 14:32
[2021-01-01 14:40] VITALS: BP 180/86
== END ==
LOC: M IRPRO 11:54
PROVIDERS: ATTEND Surgery Vascular Surgery
DX: T82.598A Other mechanical complication of other cardiac and vascular devices and implants, initial encounter (principal); N18.6 End stage renal disease; E11.22 Type 2 diabetes mellitus with diabetic chronic kidney disease; E78.00 Pure hypercholesterolemia, unspecified; I12.0 Hypertensive chronic kidney disease with stage 5 chronic kidney disease or end stage renal disease; X58.XXXA Exposure to other specified factors, initial encounter; Z79.82 Long term (current) use of aspirin; Z79.899 Other long term (current) drug therapy; Z88.5 Allergy status to narcotic agent; Z95.0 Presence of cardiac pacemaker; Z99.2 Dependence on renal dialysis
CPT/HCPCS: 36902; 99152; 99153; C1725; C1729; C1769; C1894; J1644; J2250; J3010; Q9967

== ENCOUNTER → 2021-02-08 | Outpatient (CLI) | payer MEDICARE ==
[~2021-02-08] MED LIST changes: +GOOD81CH2 PO; -ISOVUE-300 61% 50ML VIAL As Ordered ONE; -LIDOCAINE 1% MDV 20ML VIAL As Ordered ONE; -MIDAZOLAM INJ 2MG/2ML VIAL (J2250 PER 1MG) As Ordered ONE; -fentaNYL 100 MCG/2 ML INJECTION (J3010) As Ordered ONE
== END ==
LOC: M LABSMTC 10:20
PROVIDERS: ATTEND Anesthesiology
DX: Z01.812 Encounter for preprocedural laboratory examination (principal)

== ENCOUNTER 2021-02-13 07:36 | Day surgery (SDC) | payer MEDICARE ==
[~2021-02-13] VITALS: Ht 175.3 cm; Wt 134.2 kg
[~2021-02-13 07:36] MED LIST changes: +NS 1,000 ML IV ONE
[2021-02-13 08:33] LABS: POTASSIUM SERUM 4.5 MEQ/L (3.5-5.1)
[2021-02-13] MEDS ORDERED: propofoL 200 MG/20 ML VIAL As Ordered ONE ×3 (08:41→10:06)
[2021-02-13] MEDS ORDERED: LIDOCAINE 2% 100MG/5ML SDV (FOR ANES.) As Ordered ONE (08:41)
--- NOTE | 2021-02-13 10:31 | ROOR ---
Patient Name: Sherif Lujan Procedure Date: 02/13/2021 8:40 AM Date of : 1960 Age: 60 Room: [facility] Gender: Male Note Status: Finalized Procedure: Colonoscopy Indications: Screening for colorectal malignant neoplasm Providers: Humphrey Hall MD Referring MD: Humphrey Hall MD Requesting Provider: Medicines: Monitored Anesthesia Care Complications: No immediate complications. Procedure: Pre-Anesthesia Assessment: - Prior to the procedure, a History and Physical was performed, and patient medications and allergies were reviewed. The patient is competent. The risks and benefits of the procedure and the sedation options and risks were discussed with the patient. All questions were answered and informed consent was obtained. Patient identification and proposed procedure were verified by the physician, the nurse and the anesthesiologist in the endoscopy suite. Mental Status Examination: alert and oriented. Airway Examination: normal oropharyngeal airway and neck mobility. Respiratory Examination: clear to auscultation. CV Examination: normal. Prophylactic Antibiotics: The patient does not require prophylactic antibiotics. Prior Anticoagulants: The patient has taken no previous anticoagulant or antiplatelet agents except for aspirin. ASA Grade Assessment: III - A patient with severe systemic disease. After reviewing the risks and benefits, the patient was deemed in satisfactory condition to undergo the procedure. The anesthesia plan was to use monitored anesthesia care (MAC). Immediately prior to administration of medications, the patient was re-assessed for adequacy to receive sedatives. The heart rate, respiratory rate, oxygen saturations, blood pressure, adequacy of pulmonary ventilation, and response to care were monitored throughout the procedure. The physical status of the patient was re-assessed after the procedure. The Colonoscope was introduced through the anus and advanced to the cecum, identified by appendiceal orifice and ileocecal valve. The colonoscopy was technically difficult and complex due to multiple large polyps, extended period of the colonoscopy (1 1/2 hrs). The quality of the bowel preparation was adequate to identify polyps. Findings: Hemorrhoids were found on perianal exam. Multiple medium-mouthed diverticula were found in the sigmoid colon, descending colon, transverse colon and ascending colon. Two pedunculated polyps were found in the proximal transverse colon and ascending colon. The polyps were 10 to 15 mm in size. These polyps were removed with a hot snare. The smaller polyp is bisected and suctioned out, the bigger polyp placed on a snare and retrieved. Resection is complete. No bleeding at resection site. Estimated blood loss: none. A 25 mm polyp was found in the sigmoid colon. The polyp was pedunculated. The polyp was removed with a hot snare. Resection and retrieval were complete. Estimated blood loss was minimal. Area was successfully injected with 1 mL Malia ink for tattooing. Estimated blood loss was minimal. Three pedunculated polyps were found in the descending colon. The polyps were 10 to 15 mm in size. These polyps were removed with a hot snare. Resection and retrieval were complete. Estimated blood loss was minimal. A 20 mm polyp was found in the splenic flexure. The polyp was pedunculated. The polyp was removed with a hot snare. Resection and retrieval were complete. Estimated blood loss was minimal. Area was successfully injected with 1 mL Malia ink for tattooing. Estimated blood loss was minimal. A 30 mm polyp was found in the descending colon. The polyp was pedunculated. The polyp was removed with a hot snare. Resection and retrieval were complete. Estimated blood loss was minimal. Area was successfully injected with 1 mL Malia ink for tattooing. Estimated blood loss was minimal. The retroflexed view of the distal rectum and anal verge was normal and showed no anal or rectal abnormalities. Impression: - Hemorrhoids found on perianal exam. - Diverticulosis in the sigmoid colon, in the descending colon, in the transverse colon and in the ascending colon. - Two 10 to 15 mm polyps in the proximal transverse colon and in the ascending colon, removed with a hot snare. - One 25 mm polyp in the sigmoid colon, removed with a hot snare. Resected and retrieved. Injected. - Three 10 to 15 mm polyps in the descending colon, removed with a hot snare. Resected and retrieved. - One 20 mm polyp at the splenic flexure, removed with a hot snare. Resected and retrieved. Injected. - One 30 mm polyp in the descending colon, removed with a hot snare. Resected and retrieved. Injected. - The distal rectum and anal verge are normal on retroflexion view. Recommendation: - Discharge patient to home (ambulatory). - Return to my office in 2 weeks. - Repeat colonoscopy within 3 months for surveillance based on pathology results. Procedure Code(s): --- Professional --- 63915, Colonoscopy, flexible; with removal of tumor(s), polyp(s), or other lesion(s) by snare technique [id number], Colonoscopy, flexible; with directed submucosal injection(s), any substance Diagnosis Code(s): --- Professional --- K63.5, Polyp of colon Z12.11, Encounter for screening for malignant neoplasm of colon K64.9, Unspecified hemorrhoids K57.30, Diverticulosis of large intestine without perforation or abscess without bleeding CPT copyright 2019 [employer]. All rights reserved. The codes documented in this report are preliminary and upon minister assistant review may be revised to meet current compliance requirements. Humphrey Hall MD Humphrey Hall MD 02/13/2021 10:31:06 AM Electronically signed by Humphrey Hall MD Number of Addenda: 0 Note Initiated On: 02/13/2021 8:40 AM Estimated Blood Loss: Estimated blood loss was minimal.
[2021-02-13 10:35] VITALS: BP 153/75
== END 2021-02-13 10:41 | disposition home or self-care (01) ==
LOC: M OPP 07:36
PROVIDERS: ATTEND Surgery
DX: Z12.11 Encounter for screening for malignant neoplasm of colon (principal); Z80.0 Family history of malignant neoplasm of digestive organs; K63.5 Polyp of colon; K57.30 Diverticulosis of large intestine without perforation or abscess without bleeding; K64.8 Other hemorrhoids; N18.6 End stage renal disease; Z99.2 Dependence on renal dialysis; E11.22 Type 2 diabetes mellitus with diabetic chronic kidney disease; Z86.79 Personal history of other diseases of the circulatory system; Z95.0 Presence of cardiac pacemaker; Z89.519 Acquired absence of unspecified leg below knee; Z79.4 Long term (current) use of insulin; Z79.82 Long term (current) use of aspirin; Z79.899 Other long term (current) drug therapy; Z88.5 Allergy status to narcotic agent

== ENCOUNTER → 2021-02-22 | Outpatient (CLI) | payer MEDICARE ==
[~2021-02-22] MED LIST changes: -NS 1,000 ML IV ONE
== END ==
LOC: M SLEEP 20:00
PROVIDERS: ATTEND Nurse Practitioner Adult Health
DX: G47.30 Sleep apnea, unspecified (principal)

== ENCOUNTER → 2021-04-18 | Outpatient (CLI) | payer MEDICARE ==
--- NOTE | 2021-04-22 15:43 | SLEEPCENT ---
DATE: 04/18/2020 ORDERED BY: Kamilla Norton NP Nocturnal polysomnography was performed for the titration of pressure therapy in this patient with obstructive sleep apnea syndrome, apnea-hypopnea index of 19.7. For testing a ResMed Quattro full face mask of small size was used, 4 cm of water pressure were applied to the circuit, and the lights were extinguished. Seven hours and 21 minutes of data were reviewed. There were 236 minutes of sleep identified. Sleep latency was prolonged at 47.5 minutes. REM latency was prolonged at 191.5 minutes. Sleep architecture improved late in the study and there were two REM cycles appreciable. Overall sleep efficiency was 54.6%. The electrocardiogram showed a sinus rhythm with small complexes. Average heart rate of 62 beats per minute. EEG showed normal waveforms for wake and sleep. Respiratory events were fully palliated with CPAP at a pressure of 12. Significant limb activity was noted in the limb leads. Limb movement arousal index on this occasion was 4.8. IMPRESSIONS: Obstructive sleep apnea syndrome (G47.33). RECOMMENDATION: Nightly use of pressure therapy 12 cm of water. cc: ANJU SAGASTUME MD
== END ==
LOC: M SLEEP 04-18 20:00
PROVIDERS: ATTEND Nurse Practitioner Adult Health
DX: G47.33 Obstructive sleep apnea (adult) (pediatric) (principal)

== ENCOUNTER → 2021-08-15 | Outpatient (REF) | payer MEDICARE ==
[2021-08-15 16:12] LABS: BASO # 0.1 10^3/uL (0.0-0.2); BASO % 0.9 % (0.0-1.0); EOS # 0.1 10^3/uL (0.0-0.5); EOS % 2.3 % (0.0-3.0); HEMOGLOBIN 10.9 g/dl (13.5-17.5); LYMPH # 0.8 10^3/uL (1.5-5.0); LYMPH % 13.9 % (24.0-44.0); MEAN CORPUSCULAR HEMOGLOBIN 29.9 pg (27.0-33.0); MEAN CORPUSCULAR HGB CONC 31.1 g/dl (32.0-36.5); MEAN CORPUSCULAR VOLUME 95.9 fl (80.0-96.0); MONO # 0.6 10^3/uL (0.0-0.8); MONO % 10.3 % (2.0-8.0); NEUTROPHILS % 72.2 % (36.0-66.0); PLATELET COUNT, AUTOMATED 177 10^3/uL (150-450); RED BLOOD COUNT 3.65 10^6/uL (4.30-6.10); WHITE BLOOD COUNT 5.6 10^3/uL (4.0-10.0)
[2021-08-15 16:29] LABS: HEMOGLOBIN A1c 7.5 %
[2021-08-15 16:48] LABS: ALBUMIN 3.5 GM/DL (3.2-5.2); BILIRUBIN,TOTAL 0.5 MG/DL (0.2-1.0); CALCIUM LEVEL 9.6 MG/DL (8.8-10.2); CHOLESTEROL RISK RATIO 1.48 (<5); CREATININE FOR GFR 4.42 MG/DL (0.70-1.30); GLOMERULAR FILTRATION RATE 14.5 (>49); POTASSIUM SERUM 4.3 MEQ/L (3.5-5.1); THYROID STIMULATING HORMONE 0.829 uIU/ML (0.358-3.740); TOTAL PROTEIN 6.7 GM/DL (6.4-8.2)
[2021-08-15 16:49] LABS: TOTAL 25(OH) VITAMIN D 28.7 NG/ML (30.0-100.0)
== END ==
LOC: M SFHCCAPE 07:42
PROVIDERS: ATTEND Physician Assistant
DX: E78.2 Mixed hyperlipidemia (principal); E11.8 Type 2 diabetes mellitus with unspecified complications; Z12.5 Encounter for screening for malignant neoplasm of prostate; Z79.899 Other long term (current) drug therapy
CPT/HCPCS: 36415; 80053; 80061; 82306; 83036; 84443; 85025; G0103

== ENCOUNTER → 2022-03-11 | Outpatient (REF) | payer MEDICARE ==
[2022-03-11 19:42] LABS: HEMOGLOBIN A1c 6.6 %
[2022-03-11 21:24] LABS: ALBUMIN 3.5 GM/DL (3.2-5.2); BILIRUBIN,TOTAL 0.5 MG/DL (0.2-1.0); CALCIUM LEVEL 9.2 MG/DL (8.8-10.2); CHOLESTEROL RISK RATIO 1.484 (<5); CREATININE FOR GFR 4.37 MG/DL (0.70-1.30); GLOMERULAR FILTRATION RATE 14.6 (>49); POTASSIUM SERUM 5.1 MEQ/L (3.5-5.1); TOTAL PROTEIN 7.5 GM/DL (6.4-8.2)
[2022-03-11 21:56] LABS: TOTAL 25(OH) VITAMIN D 50.5 NG/ML (30.0-100.0)
== END ==
LOC: M SFHCCAPE 07:17
PROVIDERS: ATTEND Physician Assistant
DX: E78.2 Mixed hyperlipidemia (principal); E11.8 Type 2 diabetes mellitus with unspecified complications; I10 Essential (primary) hypertension; E55.9 Vitamin D deficiency, unspecified

== ENCOUNTER 2022-12-02 16:06 | Inpatient (IN) | payer MEDICARE ==
[~2022-12-02] VITALS: Ht 175.3 cm; Wt 124.0 kg
[~2022-12-02 16:06] MED LIST changes: -DOXY-350 PO; +DOXY-444 PO; -GOOD81CH2 PO; +POTA-298 PO; -POTA1TAB14 PO; +RA A81CH3 PO
[2022-12-02] MEDS ORDERED: VELP5CHW PO (16:30)
[2022-12-02 17:07] LABS: VENOUS BASE EXCESS 3.1 (-2.0-2.0); VENOUS HCO3 28.4 MMOL/L (23.0-27.0); VENOUS O2 SATURATION 95.8 % (60.0-80.0); VENOUS PARTIAL PRESSURE CO2 46.2 mmHg (38.0-50.0); VENOUS PH 7.406 UNITS (7.330-7.430); VENOUS STANDARD HCO3 27.2 MMOL/L; VENOUS TOTAL CO2 29.8 MMOL/L (24.0-28.0)
[2022-12-02 17:15] LABS: BASO % 0.3 % (0.0-1.0); EOS # 0.1 10^3/uL (0.0-0.5); EOS % 0.5 % (0.0-3.0); HEMATOCRIT 35.2 % (42.0-52.0); HEMOGLOBIN 11.1 g/dl (13.5-17.5); LYMPH # 0.3 10^3/uL (1.5-5.0); LYMPH % 2.9 % (24.0-44.0); MEAN CORPUSCULAR HEMOGLOBIN 29.4 pg (27.0-33.0); MEAN CORPUSCULAR HGB CONC 31.5 g/dl (32.0-36.5); MEAN CORPUSCULAR VOLUME 93.4 fl (80.0-96.0); MONO # 0.7 10^3/uL (0.0-0.8); MONO % 6.7 % (2.0-8.0); NEUTROPHILS # 9.2 10^3/uL (1.5-8.5); NEUTROPHILS % 89.3 % (36.0-66.0); PLATELET COUNT, AUTOMATED 151 10^3/uL (150-450); RED BLOOD COUNT 3.77 10^6/uL (4.30-6.10); WHITE BLOOD COUNT 10.3 10^3/uL (4.0-10.0)
[2022-12-02 17:26] LABS: INR 1.23; PROTHROMBIN TIME 15.8 SECONDS (12.5-14.5)
[2022-12-02 17:47] LABS: ALBUMIN 3.1 G/DL (3.2-5.2); BILIRUBIN,DIRECT 0.4 MG/DL (<0.4); BILIRUBIN,TOTAL 0.7 MG/DL (0.3-1.2); CALCIUM LEVEL 7.4 MG/DL (8.3-10.6); CREATININE FOR GFR 4.98 MG/DL (0.70-1.30); GLOMERULAR FILTRATION RATE 12.6 (>49); TOTAL PROTEIN 7.2 G/DL (5.7-8.2)
[2022-12-02 17:48] LABS: THYROID STIMULATING HORMONE 1.056 uIU/ML (0.55-4.78)
[2022-12-02 17:49] LABS: MB/CK RELATIVE INDEX 1.33 (< OR =4)
[2022-12-02 18:10] LABS: VENOUS HCO3 24.7 MMOL/L (23.0-27.0); VENOUS PARTIAL PRESSURE CO2 40.2 mmHg (38.0-50.0); VENOUS PARTIAL PRESSURE O2 90.5 mmHg (30.0-50.0); VENOUS PH 7.406 UNITS (7.330-7.430); VENOUS STANDARD HCO3 24.5 MMOL/L; VENOUS TOTAL CO2 25.9 MMOL/L (24.0-28.0)
[2022-12-02 18:35] LABS: CK-MB VALUE MASS < 1.0 NG/ML (<3.6)
[2022-12-02 18:36] LABS: CPK CREATINE PHOSPHOKINASE 64 U/L (46-171); MB/CK RELATIVE INDEX 1.56 (< OR =4)
[2022-12-02] MEDS ORDERED: LIDO1CRE42 TOP (19:36)
[2022-12-02] MEDS ORDERED: ASPI-161 PO (19:36)
[2022-12-02] MEDS ORDERED: HOME MED LIST COMPLETE! XX SCH (19:40)
[2022-12-02] MEDS ORDERED: GLUCOSE 4GM CHEW TABLET PO PRN (21:50)
[2022-12-02] MEDS ORDERED: EMLA CREAM 5GM TUBE (LIDOCAINE/PRILOCAINE) TOP PRN (21:50)
[2022-12-02] MEDS ORDERED: DEXTROSE 50% 50ML SYRINGE IV PRN (21:50)
[2022-12-02] MEDS ORDERED: GLUCAGON INJ 1MG VIAL SC PRN (21:50)
[2022-12-02 23:15] VITALS: BP 122/59
[2022-12-02] MEDS: INSULIN LISPRO (NovoLOG) PER UNIT SC SCH (23:26)
[2022-12-02] MEDS ORDERED: LevoFLOXacin 750 MG TABLET PO ONE (23:30)
[2022-12-02] MEDS: CARVedilol 6.25 MG TAB PO SCH (23:40)
[2022-12-02] MEDS: ASPIRIN 81MG ENTERIC TABLET PO SCH (23:41)
[2022-12-02] MEDS: cloNIDine 0.1MG TABLET PO SCH (23:41)
[2022-12-02] MEDS: LEVEMIR (INSULIN DETEMIR) 1 UNITS/0.01ML SC SCH (23:42)
[2022-12-03] VITALS (21 sets, daily range): BP systolic 105–132; BP diastolic 56–89; O2SAT 83–95
[2022-12-03] MEDS: HEPARIN SOD (PORCINE) 5000UNITS/ML 1ML VIAL/SYRINGE SC SCH ×3 (05:42→21:08)
[2022-12-03 05:45] LABS: CALCIUM LEVEL 7.3 MG/DL (8.3-10.6); CREATININE FOR GFR 5.62 MG/DL (0.70-1.30); GLOMERULAR FILTRATION RATE 10.9 (>49); MAGNESIUM LEVEL 1.7 MG/DL (1.8-2.4); POTASSIUM SERUM 4.2 MMOL/L (3.5-5.1)
[2022-12-03] MEDS ORDERED: HEPARIN 1,000UNITS/ML 10ML VIAL (FOR RADIOLOGY & DIALYSIS ONLY) IV PRN (06:00)
[2022-12-03] MEDS ORDERED: LIDOCAINE 1% SDV 5ML VIAL SC PRN (06:00)
[2022-12-03] MEDS ORDERED: SODIUM CHLORIDE 0.9% 1000ML IV PRN (06:00)
[2022-12-03] MEDS ORDERED: HEPARIN 1,000UNITS/ML 10ML VIAL (FOR RADIOLOGY & DIALYSIS ONLY) XX SCH (06:00)
[2022-12-03] MEDS: INSULIN LISPRO (NovoLOG) PER UNIT SC SCH ×4 (06:37→20:32)
[2022-12-03] MEDS: SUCROFERRIC OXYHYDROXIDE 500MG CHEW TAB (VELPHORO) PO SCH ×3 (06:37→17:04)
[2022-12-03] MEDS: CARVedilol 6.25 MG TAB PO SCH ×2 (09:00→20:34)
[2022-12-03] MEDS: cloNIDine 0.1MG TABLET PO SCH ×3 (09:00→20:34)
[2022-12-03] MEDS ORDERED: KETOROLAC 30 MG/ML 1ML VIAL IV ONE (09:50)
[2022-12-03 10:31] LABS: BASO % 0.3 % (0.0-1.0); EOS # 0.1 10^3/uL (0.0-0.5); EOS % 0.6 % (0.0-3.0); HEMATOCRIT 32.6 % (42.0-52.0); HEMOGLOBIN 10.4 g/dl (13.5-17.5); LYMPH # 0.4 10^3/uL (1.5-5.0); LYMPH % 4.7 % (24.0-44.0); MEAN CORPUSCULAR HEMOGLOBIN 29.7 pg (27.0-33.0); MEAN CORPUSCULAR HGB CONC 31.9 g/dl (32.0-36.5); MEAN CORPUSCULAR VOLUME 93.1 fl (80.0-96.0); MONO # 0.5 10^3/uL (0.0-0.8); NEUTROPHILS # 7.9 10^3/uL (1.5-8.5); PLATELET COUNT, AUTOMATED 136 10^3/uL (150-450); WHITE BLOOD COUNT 8.9 10^3/uL (4.0-10.0)
[2022-12-03 10:56] LABS: CALCIUM LEVEL 7.5 MG/DL (8.3-10.6); CREATININE FOR GFR 3.85 MG/DL (0.70-1.30); GLOMERULAR FILTRATION RATE 16.9 (>49); POTASSIUM SERUM 3.7 MMOL/L (3.5-5.1)
[2022-12-03] MEDS ORDERED: cefTRIAXone SOD 1 GM in D5W MINI-BAG PLUS 50 ML IV SCH (11:00)
[2022-12-03] MEDS: cefTRIAXone SOD 1 GM in D5W MINI-BAG PLUS 50 ML IV SCH (13:44)
[2022-12-03 15:54] LABS: PH BODY FLUID 7.669 UNITS (NOT ESTABLISHED); SOURCE, BODY FLUID pH PLEURAL
[2022-12-03] MEDS ORDERED: ACETAMINOPHEN TAB 650MG DOSE (2X325MG) PO PRN (17:45)
[2022-12-03 17:53] LABS: SOURCE, BODY FLUID PLEURAL
[2022-12-03 17:54] LABS: APPEARANCE, BODY FLUID CLOUDY (CLEAR); PLEURAL FL COLOR ORANGE (COLORLESS)
[2022-12-03 19:54] LABS: SOURCE, BODY FLUID ALBUMIN PLEURAL
[2022-12-03 19:58] LABS: SOURCE, BODY FLUID GLUCOSE PLEURAL; SOURCE, BODY FLUID TRIG PLEURAL; TRIGLYCERIDE, BODY FLUID 25 MG/DL (NOT ESTABLISHED)
[2022-12-03 20:00] LABS: AMYLASE, BODY FLUID 65 U/L (NOT ESTABLISHED); LDH, BODY FLUID 143 U/L (NOT ESTABLISHED); SOURCE, BODY FLUID AMYLASE PLEURAL; SOURCE, BODY FLUID LDH PLEURAL
[2022-12-03 20:01] LABS: CHOLESTEROL, BODY FLUID 26 MG/DL (NOT ESTABLISHED); SOURCE, BODY FLUID CHOL PLEURAL; SOURCE, BODY FLUID TOT PROTEIN PLEURAL
[2022-12-03] MEDS: LEVEMIR (INSULIN DETEMIR) 1 UNITS/0.01ML SC SCH (20:33)
[2022-12-03] MEDS: ASPIRIN 81MG ENTERIC TABLET PO SCH (20:34)
[2022-12-04] VITALS (24 sets, daily range): BP systolic 98–151; BP diastolic 56–72; O2SAT 90–98
[2022-12-04] MEDS ORDERED: LIDOCAINE 1% SDV 5ML VIAL SC PRN (06:00)
[2022-12-04] MEDS ORDERED: HEPARIN 1,000UNITS/ML 10ML VIAL (FOR RADIOLOGY & DIALYSIS ONLY) XX SCH (06:00)
[2022-12-04] MEDS ORDERED: SODIUM CHLORIDE 0.9% 1000ML IV PRN (06:00)
[2022-12-04 06:46] LABS: CREATININE FOR GFR 4.4 MG/DL (0.70-1.30); GLOMERULAR FILTRATION RATE 14.5 (>49); POTASSIUM SERUM 4.1 MMOL/L (3.5-5.1)
[2022-12-04] MEDS: HEPARIN SOD (PORCINE) 5000UNITS/ML 1ML VIAL/SYRINGE SC SCH ×3 (06:51→21:01)
[2022-12-04] MEDS: INSULIN LISPRO (NovoLOG) PER UNIT SC SCH ×4 (06:52→21:00)
[2022-12-04] MEDS: SUCROFERRIC OXYHYDROXIDE 500MG CHEW TAB (VELPHORO) PO SCH ×3 (08:00→17:11)
[2022-12-04] MEDS: cloNIDine 0.1MG TABLET PO SCH ×3 (09:00→20:57)
[2022-12-04] MEDS: cefTRIAXone SOD 1 GM in D5W MINI-BAG PLUS 50 ML IV SCH (13:50)
[2022-12-04] MEDS: CARVedilol 6.25 MG TAB PO SCH ×2 (13:51→20:47)
[2022-12-04] MEDS: ASPIRIN 81MG ENTERIC TABLET PO SCH (20:57)
[2022-12-04] MEDS: LEVEMIR (INSULIN DETEMIR) 1 UNITS/0.01ML SC SCH (20:58)
[2022-12-04] MEDS ORDERED: LevoFLOXacin 500 MG TABLET PO SCH (21:00)
[2022-12-05 02:00] VITALS: BP 139/65
[2022-12-05 02:28] VITALS: O2SAT 94
[2022-12-05 06:00] VITALS: BP 140/67
[2022-12-05 06:11] LABS: BASO % 0.6 % (0.0-1.0); EOS # 0.1 10^3/uL (0.0-0.5); HEMATOCRIT 32.7 % (42.0-52.0); HEMOGLOBIN 10.3 g/dl (13.5-17.5); LYMPH # 0.5 10^3/uL (1.5-5.0); LYMPH % 9.4 % (24.0-44.0); MEAN CORPUSCULAR HEMOGLOBIN 29.1 pg (27.0-33.0); MEAN CORPUSCULAR HGB CONC 31.5 g/dl (32.0-36.5); MEAN CORPUSCULAR VOLUME 92.4 fl (80.0-96.0); MONO # 0.7 10^3/uL (0.0-0.8); MONO % 13.2 % (2.0-8.0); NEUTROPHILS # 4.1 10^3/uL (1.5-8.5); NEUTROPHILS % 74.2 % (36.0-66.0); PLATELET COUNT, AUTOMATED 132 10^3/uL (150-450); RED BLOOD COUNT 3.54 10^6/uL (4.30-6.10); WHITE BLOOD COUNT 5.5 10^3/uL (4.0-10.0)
[2022-12-05] MEDS: HEPARIN SOD (PORCINE) 5000UNITS/ML 1ML VIAL/SYRINGE SC SCH ×2 (06:31→13:47)
[2022-12-05] MEDS: CARVedilol 6.25 MG TAB PO SCH (06:35)
[2022-12-05] MEDS: cloNIDine 0.1MG TABLET PO SCH ×2 (06:37→15:16)
[2022-12-05] MEDS: SUCROFERRIC OXYHYDROXIDE 500MG CHEW TAB (VELPHORO) PO SCH ×2 (06:38→13:46)
[2022-12-05 06:41] LABS: CALCIUM LEVEL 7.8 MG/DL (8.3-10.6); CREATININE FOR GFR 5.91 MG/DL (0.70-1.30); GLOMERULAR FILTRATION RATE 10.3 (>49); POTASSIUM SERUM 4.6 MMOL/L (3.5-5.1)
[2022-12-05] MEDS: INSULIN LISPRO (NovoLOG) PER UNIT SC SCH ×2 (07:30→13:40)
[2022-12-05] MEDS ORDERED: LIDOCAINE 1% SDV 5ML VIAL SC PRN (08:25)
[2022-12-05] MEDS ORDERED: HEPARIN 1,000UNITS/ML 10ML VIAL (FOR RADIOLOGY & DIALYSIS ONLY) XX SCH (08:25)
[2022-12-05] MEDS ORDERED: SODIUM CHLORIDE 0.9% 1000ML IV PRN (08:25)
[2022-12-05] MEDS ORDERED: HEPARIN 1,000UNITS/ML 10ML VIAL (FOR RADIOLOGY & DIALYSIS ONLY) IV PRN (08:25)
[2022-12-05] MEDS ORDERED: CEFD300C41 PO (11:59)
[2022-12-05] MEDS ORDERED: CEFDINIR 300 MG CAP (OMNICEF) PO ONE (13:00)
[2022-12-05 14:00] VITALS: BP 125/62
[2022-12-05 15:16] VITALS: BP 125/62
[2022-12-05] MEDS ORDERED: ASCORBIC ACID 500 MG TAB PO SCH (21:00)
== END 2022-12-05 15:24 | disposition home or self-care (01) | DRG 288 ==
LOC: M ED 16:06 → M ED INP 21:06 → ENRESERV 22:47 → M PCU 23:23 → M MSPAV 12-04 22:59
PROVIDERS: ADMIT Internal Medicine; ATTEND Internal Medicine Nephrology
PROC: 5A1D70Z Performance of Urinary Filtration, Intermittent, Less than 6 Hours Per Day (ICD-10-PCS; 2022-12-03)
PROC: 0W993ZZ Drainage of Right Pleural Cavity, Percutaneous Approach (ICD-10-PCS; principal; 2022-12-04)
DX: I33.0 Acute and subacute infective endocarditis (principal); N18.6 End stage renal disease; I50.33 Acute on chronic diastolic (congestive) heart failure; I13.2 Hypertensive heart and chronic kidney disease with heart failure and with stage 5 chronic kidney disease, or end stage renal disease; R18.8 Other ascites; L03.116 Cellulitis of left lower limb; J98.11 Atelectasis; J90 Pleural effusion, not elsewhere classified; Z68.41 Body mass index [BMI] 40.0-44.9, adult; R78.81 Bacteremia; I27.20 Pulmonary hypertension, unspecified; E11.22 Type 2 diabetes mellitus with diabetic chronic kidney disease; E78.5 Hyperlipidemia, unspecified; Z95.0 Presence of cardiac pacemaker; D64.9 Anemia, unspecified; G47.33 Obstructive sleep apnea (adult) (pediatric); K57.30 Diverticulosis of large intestine without perforation or abscess without bleeding; E66.01 Morbid (severe) obesity due to excess calories; D69.6 Thrombocytopenia, unspecified; I50.813 Acute on chronic right heart failure; Z95.2 Presence of prosthetic heart valve; B96.20 Unspecified Escherichia coli [E. coli] as the cause of diseases classified elsewhere; K74.60 Unspecified cirrhosis of liver; I36.0 Nonrheumatic tricuspid (valve) stenosis; E11.40 Type 2 diabetes mellitus with diabetic neuropathy, unspecified; K64.8 Other hemorrhoids; Z89.511 Acquired absence of right leg below knee; I80.8 Phlebitis and thrombophlebitis of other sites; E07.9 Disorder of thyroid, unspecified; Z88.5 Allergy status to narcotic agent; Z79.899 Other long term (current) drug therapy; Z79.82 Long term (current) use of aspirin; Z79.4 Long term (current) use of insulin

== ENCOUNTER → 2022-12-18 | Outpatient (CLI) | payer MEDICARE ==
[~2022-12-18] MED LIST changes: +ASPI-161 PO; +CEFD300C41 PO; +LIDO1CRE42 TOP; +VELP5CHW PO
== END ==
LOC: M RAD 10:15
PROVIDERS: ATTEND Internal Medicine Pulmonary Disease
DX: R91.8 Other nonspecific abnormal finding of lung field (principal)

== ENCOUNTER → 2023-01-12 | Outpatient (CLI) | payer MEDICARE ==
[~2023-01-12] MED LIST changes: +PROC20004 SC
[2023-01-12 12:29] LABS: PLATELET COUNT, AUTOMATED 116 10^3/uL (150-450)
[2023-01-12 12:44] LABS: INR 1.23; PROTHROMBIN TIME 15.8 SECONDS (12.5-14.5)
[2023-01-12 12:45] LABS: PARTIAL THROMBOPLASTIN TIME 36.4 SECONDS (24.8-34.2)
== END ==
LOC: M LAB 11:48
PROVIDERS: ATTEND Internal Medicine Pulmonary Disease
DX: Z01.812 Encounter for preprocedural laboratory examination (principal); J90 Pleural effusion, not elsewhere classified

== ENCOUNTER → 2023-01-13 | Outpatient (CLI) | payer MEDICARE ==
[2023-01-13 11:45] VITALS: TEMP 97.6
[2023-01-13 12:41] LABS: BASO % 0.8 % (0.0-1.0); EOS # 0.1 10^3/uL (0.0-0.5); EOS % 2.2 % (0.0-3.0); HEMATOCRIT 31.5 % (42.0-52.0); HEMOGLOBIN 9.6 g/dl (13.5-17.5); LYMPH # 0.5 10^3/uL (1.5-5.0); MEAN CORPUSCULAR HEMOGLOBIN 28.8 pg (27.0-33.0); MEAN CORPUSCULAR HGB CONC 30.5 g/dl (32.0-36.5); MEAN CORPUSCULAR VOLUME 94.6 fl (80.0-96.0); MONO # 0.5 10^3/uL (0.0-0.8); MONO % 10.6 % (2.0-8.0); NEUTROPHILS # 3.7 10^3/uL (1.5-8.5); NEUTROPHILS % 75.2 % (36.0-66.0); PLATELET COUNT, AUTOMATED 132 10^3/uL (150-450); RED BLOOD COUNT 3.33 10^6/uL (4.30-6.10); WHITE BLOOD COUNT 4.9 10^3/uL (4.0-10.0)
[2023-01-13 12:45] LABS: PH BODY FLUID 7.417 UNITS (NOT ESTABLISHED); SOURCE, BODY FLUID pH PLEURAL
[2023-01-13 12:53] LABS: INR 1.31; PROTHROMBIN TIME 16.5 SECONDS (12.5-14.5)
[2023-01-13 12:59] LABS: APPEARANCE, BODY FLUID TURBID (CLEAR); PLEURAL FL COLOR RED (COLORLESS); SOURCE, BODY FLUID PLEURAL
[2023-01-13 13:12] LABS: LDH LACTATE DEHYDROGENASE 156 U/L (120-246)
[2023-01-13 13:13] LABS: ALBUMIN 3.1 G/DL (3.2-5.2); ALKALINE PHOSPHATASE 251 U/L (46-116); ALT/SGPT < 9 U/L (7.0-40); AST/SGOT 16 U/L (<34); BILIRUBIN,TOTAL 0.4 MG/DL (0.3-1.2); BLOOD UREA NITROGEN 38 MG/DL (9-23); CARBON DIOXIDE LEVEL 31 MMOL/L (20-31); CHLORIDE LEVEL 96 MMOL/L (98-107); CREATININE FOR GFR 5.04 MG/DL (0.70-1.30); GLOMERULAR FILTRATION RATE 12.4 (>49); GLUCOSE, FASTING 121 MG/DL (74-106); POTASSIUM SERUM 4.3 MMOL/L (3.5-5.1); SODIUM LEVEL 136 MMOL/L (136-145); TOTAL PROTEIN 6.8 G/DL (5.7-8.2)
[2023-01-13 13:59] LABS: AMYLASE, BODY FLUID 64 U/L (NOT ESTABLISHED); SOURCE, BODY FLUID AMYLASE PLEURAL; SOURCE, BODY FLUID GLUCOSE PLEURAL
[2023-01-13 14:01] LABS: LDH, BODY FLUID 208 U/L (NOT ESTABLISHED); SOURCE, BODY FLUID LDH PLEURAL
[2023-01-13 14:02] LABS: SOURCE, BODY FLUID TOT PROTEIN PLEURAL; TOTAL PROTEIN, BODY FLUID 3.1 G/DL (NOT ESTABLISHED)
[2023-01-13 14:16] VITALS: BP 132/84; O2SAT 95
== END ==
LOC: M IRPRO 11:28
PROVIDERS: ATTEND Internal Medicine Pulmonary Disease
DX: J90 Pleural effusion, not elsewhere classified (principal)

== ENCOUNTER → 2023-01-22 | Outpatient (CLI) | payer MEDICARE | LOC: M RAD 11:16 | PROVIDERS: ATTEND Physician Assistant | DX: E07.9 Disorder of thyroid, unspecified (principal) ==

== ENCOUNTER → 2023-01-26 | Outpatient (CLI) | payer MEDICARE | LOC: M LAB 09:54 | PROVIDERS: ATTEND Physician Assistant | DX: I33.0 Acute and subacute infective endocarditis (principal) ==

== ENCOUNTER → 2023-01-27 | Outpatient (CLI) | payer MEDICARE | LOC: M LAB 08:28 | PROVIDERS: ATTEND Physician Assistant | DX: I33.0 Acute and subacute infective endocarditis (principal) ==

== ENCOUNTER → 2023-02-06 | Outpatient (CLI) | payer MEDICARE | LOC: M RAD 11:07 | PROVIDERS: ATTEND Internal Medicine Pulmonary Disease | DX: R91.8 Other nonspecific abnormal finding of lung field (principal) ==

== ENCOUNTER → 2023-02-09 | Outpatient (CLI) | payer MEDICARE ==
[~2023-02-09] MED LIST changes: +ASPI-663 PO; -LIDO1CRE42 TOP; +LIDO30CR18 TOP; -RA A81CH3 PO
== END ==
LOC: M LAB 10:42
PROVIDERS: ATTEND Physician Assistant
DX: I33.0 Acute and subacute infective endocarditis (principal)

== ENCOUNTER → 2023-02-10 | Outpatient (CLI) | payer MEDICARE | LOC: M LAB 08:28 | PROVIDERS: ATTEND Physician Assistant | DX: I33.0 Acute and subacute infective endocarditis (principal) ==

== ENCOUNTER → 2023-02-23 | Outpatient (CLI) | payer MEDICARE ==
[~2023-02-23] MED LIST changes: +LIDOCAINE 1% MDV 20ML VIAL As Ordered ONE
[2023-02-23 09:57] VITALS: TEMP 97
[2023-02-23 10:46] VITALS: BP 126/63; O2SAT 91
== END ==
LOC: M IRPRO 09:48
PROVIDERS: ATTEND Otolaryngology
DX: E04.1 Nontoxic single thyroid nodule (principal); D44.0 Neoplasm of uncertain behavior of thyroid gland